=== PATIENT | female | born 1970 | race Caucasian/White ===

== ENCOUNTER 2019-12-03 09:46 | Emergency (ER) | payer MEDICAID, SELFPAY ==
[2019-12-03] VITALS (12 sets, daily range): BP systolic 90–189; BP diastolic 59–115; PULSE 72–101; RESP 16–22; TEMP 36.7–36.9; O2SAT 95–98; BMI 29.2
--- NOTE | 2019-12-03 09:56 | ED_ITS ---
Entered by Ana Wilder, acting as scribe for Dec 03, 2019 09:46 HPI - Abdominal Pain General: Chief Complaint: General Medical, Adult Stated Complaint: Blood pressure Time Seen by Provider: 12/03/19 09:55 Source: patient Mode of arrival: ambulatory History of Present Illness: MD elicited complaint: abdominal pain and other (high heart rate) Pertinent past history: none Onset (ago): day(s) (2 days ago) Pain Consistency: constant Location: Epigastric Severity: moderate Quality: cramping and aching Exacerbating factors: nothing Relieving factors: nothing Associated Symptoms: Reports nausea, vomiting and other (high blood pressure, high heart rate, headache, loss of appetite); Denies chills and fever(s) Review of Systems Const: Denies: fever or chills Eyes: Denies: change in vision ENMT: Denies: throat pain or mouth pain Card: Denies: chest pain Resp: Denies: shortness of breath GI: Reports: abdominal pain, nausea, vomiting and other (high blood pressure, high heart rate, headache, loss of appetite) : Denies: difficulty urinating Musc: Denies: back pain or joint pain Skin/Breast: Denies: rash Neuro: Denies: headache or behavioral changes Psych: Denies: depression Endo: Denies: excessive urination Stone/Lymph: Denies: easy bruising All/Imm: Denies: hives PFSH ED PFSH: Statuses (acute, chronic, etc) shown below reflect problem list status as previously entered and may not be historically accurate Family History (Updated 11/23/19 @ 16:47 by Lucy Castaneda LPN) Father Lung disease Other Cancer Stroke Social History (Updated 11/23/19 @ 16:47 by Lucy Castaneda LPN) Smoking and tobacco status: current every day smoker Alcohol intake: never Physical Exam Const: COMMON NORMALS: no apparent distress and healthy appearing HENMT: COMMON NORMALS: normocephalic and external nose normal HEAD & SCALP: normocephalic NOSE: external nose normal and no nasal discharge (nasal dischage) Eye: COMMON NORMALS: PERRL PUPIL: Yes PERRL Neck/C-Spine: COMMON NORMALS: full ROM and no lymphadenopathy Chest: COMMONS NORMALS: inspection of chest normal Resp: COMMON NORMALS: normal respiratory effort and clear to auscultation bilaterally AUSCULTATION: clear to auscultation bilaterally Cardio: COMMON NORMALS: regular rate and regular rhythm RATE: regular rate RHYTHM: regular rhythm GI: COMMON NORMALS: soft to palpation PALPATION: Yes soft Extremity: COMMON NORMALS: normal to inspection, full ROM and normal capillary refill Psych: COMMON NORMALS: mental status grossly normal and cooperative Skin: COMMON NORMALS: no rashes or lesions noted GENERAL SKIN EXAM: no rashes or lesions noted Procedures Intubation Mg Given: 20 Mg Given: 200 Course Vital Signs: Vital signs: Vital Signs Temperature 98.0 F 12/03/19 13:38 Pulse Rate 84 12/03/19 13:38 Respiratory Rate 16 12/03/19 13:38 Blood Pressure 90/59 12/03/19 13:38 Pulse Oximetry 96 12/03/19 13:38 MDM - Abdominal Pain MDM Narrative: Medical decision making narrative: Patient presents here with vomiting along with high blood pressure. Patient does have an elevated white count likely due to stress from vomiting and dehydration. Patient CT abdomen shows no acute findings. Patient feels improved after Zofran. Patient was hypertensive as well which is improved. Patient prescribe metoprolol for home. Lab Data: Labs: Lab Results 12/03/19 12/03/19 12/03/19 Range/Units 10:11 10:11 11:35 WBC 16.8 H (4.0-10.0) 10^3/ uL RBC 5.58 H (4.1-5.3) 10^6/u L Hgb 16.7 H (11.5-15.3) g/dL Hct 47.3 H (37.0-47.0) % MCV 84.8 (81-99) fL MCH 29.9 (28.0-34.0) pg MCHC 35.3 (30.0-36.0) g/dL RDW 12.0 L (12.1-15.1) % Plt Count 309 (130-400) 10^3/c mm MPV 9.0 (7.4-10.4) fL Neut % (Auto) 75.8 % Lymph % (Auto) 17.7 % [place] % (Auto) 5.8 % Eos % (Auto) 0.1 % Baso % (Auto) 0.3 % Neut # (Auto) 12.7 H (1.8-7.7) 10^3/u L Lymph # (Auto) 3.0 (0.8-4.8) 10^3/u L [place] # (Auto) 1.0 H (0.2-0.9) 10^3/u L Eos # (Auto) 0.0 (0.0-0.8) 10^3/u L Baso # (Auto) 0.1 (0.0-0.1) 10^3/u L Nucleated RBC % (a uto) 0 % Nucleated RBCs # 0.0 /100WBC Sodium 132 L (136-145) mmol/L Potassium 3.4 L (3.5-5.1) mmol/L Chloride 93 L (98-107) mmol/L Carbon Dioxide 22 (22-29) mmol/L Anion Gap 20.4 H (5-19) BUN 9 (6-20) mg/dL Creatinine 0.6 (0.5-0.9) mg/dL GFR Calculation 105.4 (90-130) mL/min Glucose 270 H (74-109) mg/dL Calcium 10.6 H (8.6-10.0) mg/Dl Total Bilirubin 0.7 (0.15-1.2) mg/dL AST 18 (0-32) U/L ALT 17 (0-33) U/L Alkaline Phosphata se 104 (35-105) IU/L Total Protein 7.3 (6.6-8.7) g/dL Albumin 5.3 H (3.5-5.2) g/dL Globulin 2.0 (1.3-4.6) g/dL Lipase 8 L (13-60) U/L Urine Color Yellow (Yellow) Urine Appearance Sl hazy (CLEAR) Urine pH 7 (5-7) Ur Specific Gravit y 1.010 (1.005-1.030) Urine Protein 1+ H (Negative) Urine Glucose (UA) Trace H (Normal) Urine Ketones 1+ H (Negative) Urine Occult Blood 2+ H (Negative) Urine Nitrate Negative (Negative) Urine Bilirubin Neg (NEGATIVE) Urine Urobilinogen Norm (Negative) mg/dL Ur Leukocyte Dejah ase Negative (Negative) Urine RBC 10-15 H (0-2) /hpf Urine WBC 10-15 H (0-5) /hpf Ur Squamous Epith Cells 10-15 H (0-5) Urine Bacteria 1+ H (NONE) EKG Data ^: EKG 1: EKG interpretation date: 12/03/19 EKG interpretation time: 11:33 Interpretation: nsr hr [address] or t wave abnormalities Computer generated interpretation: Discharge Plan Discharge Patient Disposition: Home, Self-Care Clinical Impression: Vomiting Qualifiers: Vomiting type: unspecified Vomiting Intractability: non-intractable Nausea presence: with nausea Qualified Code(s): R11.2 - Nausea with vomiting, unspecified Hypertension Qualifiers: Hypertension type: essential hypertension Qualified Code(s): I10 - Essential (primary) hypertension Condition: Stable Prescriptions: New Zofran 4 mg tablet 4 mg PO QID PRN (Reason: nausea and vomiting) Qty: 14 RF: 0 metoprolol succinate 25 mg tablet extended release 24 hr 25 mg PO DAILY Qty: 30 RF: 0 No Action omeprazole 40 mg capsule,delayed release(DR/EC) 40 mg PO DAILY RF: 0 fluticasone propionate [Flonase Allergy Relief] 50 mcg/actuation spray,suspe nsion 1 spray INTRANASAL BID RF: 0 citalopram [Celexa] 40 mg tablet 40 mg PO DAILY RF: 0 metformin 500 mg tablet extended release 24hr 1,000 mg PO DAILY RF: 0 albuterol sulfate [ProAir HFA] 90 mcg/actuation HFA aerosol inhaler 2 puff INHALATION Q6H PRNRF: 0 trazodone 150 mg tablet 150 mg PO DAILY RF: 0 valacyclovir [Valtrex] 1 gram tablet 1,000 mg PO DAILY RF: 0 Discharge Orders: Discharge Order (Routine); Ordered 12/03/19 Ordered By: Julia Leahy Referrals: Carine Booth DO [Primary Care Provider] - 4-7 days Discharge Diet: Advance as tolerated Discharge Activity: Resume usual activity Patient Instructions: Hypertension (ED), Vomiting - Adult Discharge Date/Time: 12/03/19 13:39 Coding Level of Care Code ED Labor Supervisor for Chg Fwd Exam Problem Focused The documentation recorded by the Meño serna Bridget Annette, accurately reflects the service I personally performed and the decisions made by Armond garcia Korby, MD Dec 03, 2019 09:46
--- NOTE | 2019-12-03 09:59 | ECG_ITS ---
Measurements Intervals [place] Rate: 73 P: 62 ND: 141 QRS: -6 QRSD: 86 T: 20 QT: 457 QTc: 506 SINUS RHYTHM POSSIBLE INFERIOR MYOCARDIAL INFARCTION , PROBABLY OLD [30 ms Q WAVE IN II/aVF] No previous ECG available for comparison Electronically Signed On 12-03-2019 13:17:06 ELECTROMECHANISMS DESIGN DRAFTER by Jeannette Mcbride M.D. [id number]
[2019-12-03 10:26] LABS: Basophils # 0.1 10^3/uL (0.0-0.1); Basophils % 0.3 %; Eosinophils % 0.1 %; Hematocrit 47.3 % (37.0-47.0); Hemoglobin 16.7 g/dL (11.5-15.3); Lymphocytes % 17.7 %; Mean Corpuscular HGB Conc 35.3 g/dL (30.0-36.0); Mean Corpuscular Hemoglobin 29.9 pg (28.0-34.0); Mean Corpuscular Volume 84.8 fL (81-99); Monocytes % 5.8 %; Neutrophils # 12.7 10^3/uL (1.8-7.7); Neutrophils % 75.8 %; Nucleated Red Blood Cells % 0 %; Platelet Count 309 10^3/cmm (130-400); Red Blood Count 5.58 10^6/uL (4.1-5.3); White Blood Count 16.8 10^3/uL (4.0-10.0)
[2019-12-03] MEDS: sodium chloride 0.9% 1,000 ML 999 ML IV (10:30)
[2019-12-03] MEDS: ondansetron 2 mg/ML SDV 2 mL 4 MG IVP ×2 (10:38→12:24)
[2019-12-03] MEDS: morphine 4 mg/mL SDV 1 mL IVP ×2 (10:40→12:30)
[2019-12-03 10:42] LABS: Alanine Aminotransferase 17 U/L (0-33); Albumin Level 5.3 g/dL (3.5-5.2); Alkaline Phosphatase 104 IU/L (35-105); Anion Gap 20.4 (5-19); Aspartate Amino Transferase 18 U/L (0-32); Blood Urea Nitrogen 9 mg/dL (6-20); Calcium 10.6 mg/Dl (8.6-10.0); Carbon Dioxide 22 mmol/L (22-29); Chloride 93 mmol/L (98-107); Glomerular Filtration Rate 105.4 mL/min (90-130); Glucose 270 mg/dL (74-109); Lipase 8 U/L (13-60); Potassium 3.4 mmol/L (3.5-5.1); Sodium 132 mmol/L (136-145); Total Bilirubin 0.7 mg/dL (0.15-1.2); Total Protein 7.3 g/dL (6.6-8.7)
[2019-12-03] MEDS: labetalol 5 mg/mL SDV 20mL 10 MG IVP (10:45)
--- NOTE | 2019-12-03 11:00 | CTR_ITS ---
PROCEDURE INFORMATION: Exam: CT Abdomen And Pelvis Without Contrast Exam date and time: 12/03/2019 11:48 AM Age: 49 years old Clinical indication: Abdominal pain; Epigastric; Prior surgery; Surgery date: 6+ months; Surgery type: Partial hyst. Appy TECHNIQUE: Imaging protocol: Computed tomography of the abdomen and pelvis without contrast. Total DLP: 719.88 mGy-cm Radiation optimization: All CT scans at this facility use at least one of these dose optimization techniques: automated exposure control; mA and/or kV adjustment per patient size (includes targeted exams where dose is matched to clinical indication); or iterative reconstruction. COMPARISON: CR Hip 2-3v LEFT wwo Pelv* [id number] 11/24/2019 2:46 PM FINDINGS: Liver: Normal. No mass. Gallbladder and bile ducts: Normal. No calcified stones. No ductal dilation. Pancreas: Normal. No ductal dilation. Spleen: Spleen contains several calcified granulomas. Adrenals: Normal. No mass. Kidneys and ureters: Normal. No hydronephrosis. Stomach and bowel: Unremarkable. No obstruction. No mucosal thickening. Appendix: No evidence of appendicitis. Intraperitoneal space: Unremarkable. No free air. No significant fluid collection. Vasculature: Mild aortoiliac atherosclerotic calcification. Lymph nodes: Unremarkable. No enlarged lymph nodes. Bladder: Unremarkable as visualized. Reproductive: Prior hysterectomy. Bones/joints: Unremarkable. No acute fracture. Soft tissues: Unremarkable. CT/CT abdomen pelvis con [id number] IMPRESSION: No acute findings. Radiation Dose CTDIVOL = (mGy): DLP = 719.88 (mGy-cm)
[2019-12-03 12:25] LABS: Blood Urine 2+ (Negative); Glucose Urine UA Trace (Normal); Ketones Urine 1+ (Negative); Protein Urine 1+ (Negative); Urine Appearance SL Hazy (CLEAR); Urine Color Yellow (Yellow); pH Urine 7 (5-7)
[2019-12-03 12:26] LABS: Bilirubin Urine Neg (NEGATIVE); Leukocyte Esterase Urine Negative (Negative); Nitrate Urine Negative (Negative); Urobilinogen Urine Norm (Negative)
[2019-12-03 12:29] LABS: Bacteria Urine 1+
[2019-12-03 12:30] LABS: Add Urine Culture? No
== END 2019-12-03 13:39 | disposition home or self-care (01) ==
PROVIDERS: Emergency Provider Emergency Medicine; Family Provider Family Medicine; PCP Family Medicine
DX: I10 Essential (primary) hypertension (principal); R11.2 Nausea with vomiting, unspecified; Z79.84 Long term (current) use of oral hypoglycemic drugs; F17.210 Nicotine dependence, cigarettes, uncomplicated
CPT/HCPCS: 74176; 80053; 81001; 83690; 85025; 93005; 96360; 96374; 99283; J2270; J2405; J3490; J7030

== ENCOUNTER → 2020-02-15 10:33 | Outpatient (BNVA) | payer MEDICAID, SELFPAY | PROVIDERS: Family Provider Family Medicine; PCP Family Medicine; Visit Provider Family Medicine | DX: E11.9 Type 2 diabetes mellitus without complications (principal) | CPT/HCPCS: 80053; 80061; 82044; 83036; 85025 ==

== ENCOUNTER 2020-04-23 08:32 | Day surgery (SDC) | payer MEDICAID, SELFPAY ==
[2020-04-19 14:06] VITALS: BMI 29.2
[2020-04-23 09:06] VITALS: BP 149/86; PULSE 83; RESP 18; TEMP 36.4; O2SAT 97
[2020-04-23 09:13] LABS: Glucose Point of Care 165 mg/dL (70-110)
--- NOTE | 2020-04-23 09:25 | ANES.PREANE2 ---
Pre-Anesthetic Assessment Pre-Anesthetic Assessment: Height/Weight: Height 1.63 m Weight 77.111 kg Temp Pulse Resp BP Pulse Ox 97.6 F 83 18 149/86 97 04/23/20 09:06 04/23/20 09:06 04/23/20 09:06 04/23/20 09:06 04/23/20 09:06 Proposed Procedure: Operation Date: 04/23/20 10:00 Proposed Procedures p Colonoscopy 86919 Z12.11(Bilateral) - Alex Braswell MD Last intake: Intake Last Liquid Date 04/22/20 Last Liquid Time 22:30 Last Solid Date 04/21/20 Last Solid Time 23:59 Social: Social History: Tobacco and No alcohol Exam: Pre-Anes Outpt Exam: alert, oriented x 3, clear to auscultation bilaterally and regular rate & rhythm Airway: Submandibular: WNL Cervical ROM: WNL MP: 2 Dentition: False (edenturless ) History/ROS: No significant history except as noted Pulmonary: Pulmonary: COPD and SALINAS CV/HEM: CV/HEM: None reported : : None reported Hepatic: Hepatic: None reported GI: GI: GERD Metabolic: Metabolic: DM and Thyroid Musc/skel: Musc/skel: OA/DJD Neuropsych: Neuropsych: Anxiety and Depression Anesthetic Plan: ASA status: 3 Anesthesia: Anesthesia Evaluation and MAC Risk of > 500 ml blood loss (7ml/kg in children): No PFSH Anesthesia PFSH: Medical History Anxiety and depression Chronic left hip pain Gastroesophageal reflux Hypothyroidism Type 2 diabetes mellitus, without long-term current use of insulin Surgical History H/O carpal tunnel repair H/O tubal ligation H/O: hysterectomy History of appendectomy History of tonsillectomy and adenoidectomy Family History Father Lung disease Other Atrial fibrillation CAD (coronary artery disease) COPD (chronic obstructive pulmonary disease) Cancer Stroke Social History Smoking and tobacco status: current every day smoker cigarettes Packs smoked per day: 1 Alcohol intake: never Data Anesthesia Other Labs: Laboratory Results - last 48 hr 04/23/20 09:10 POC Glucose 165 Cardiac Studies: No Data to Display
[2020-04-23] MEDS: sodium chloride 0.9% 1,000 ML 30 ML IV (09:42)
--- NOTE | 2020-04-23 09:50 | PM.OPSURHP ---
Providers/Chief Complaint Primary Care Provider: Carine Booth DO Chief Complaint: Colonscopy History of Present Illness Molly Kenny is a 50 year old female who presents for screening colonoscopy. The patient denies abdominal pain, nausea, vomiting, loss of appetite, change in bowel habits, blood in stools, weight loss, constipation or diarrhea. The patient has no family history of colon cancer and has never had a colonoscopy before. Review of Systems General: Reports: 10 or more systems reviewed and unremarkable except in HPI and below Medications/Allergies Home Medications Medication Instructions Recorded Confirmed Last Taken Type albuterol sulfate 90 mcg/actuation 2 puff INHALATION Q6H PRN 11/23/19 04/23/20 04/22/20 History aerosol inhaler valacyclovir 1 gram tablet 1,000 mg PO DAILY tab 11/23/19 04/19/20 Unknown History ondansetron HCl 4 mg tablet 4 mg PO QID PRN #14 tab 01/03/20 04/19/20 Unknown Rx tramadol 50 mg tablet 50 mg PO BID PRN #14 tab 01/12/20 04/19/20 Unknown Rx citalopram 40 mg tablet 40 mg PO DAILY #90 tab 02/28/20 04/19/20 04/22/20 Rx trazodone 100 mg tablet 200 mg PO .at bedtime #90 tab 03/08/20 04/23/20 04/22/20 Rx fluticasone propionate 50 2 spray INTRANASAL BID #18.2 ml 03/18/20 04/19/20 04/22/20 Rx mcg/actuation nasal spray,suspension sitagliptin 100 mg tablet 100 mg PO DAILY #30 tab 04/12/20 04/23/20 04/21/20 Rx Allergies Allergy/AdvReac Type Severity Reaction Status Date / Time cephalexin [From Keflex] Allergy Intermediate Hives Verified 04/11/20 15:21 Penicillins Allergy Intermediate Hives Verified 04/11/20 15:21 PFSH PFSH: Medical History Anxiety and depression Chronic left hip pain Gastroesophageal reflux Hypothyroidism Type 2 diabetes mellitus, without long-term current use of insulin Surgical History H/O carpal tunnel repair H/O tubal ligation H/O: hysterectomy History of appendectomy History of tonsillectomy and adenoidectomy Family History Father Lung disease Other Atrial fibrillation CAD (coronary artery disease) COPD (chronic obstructive pulmonary disease) Cancer Stroke Social History Smoking and tobacco status: current every day smoker cigarettes Packs smoked per day: 1 Alcohol intake: never Vital Signs Vitals Signs: Last Vital Signs Temp 97.6 F 04/23/20 09:06 Pulse 83 04/23/20 09:06 Resp 18 04/23/20 09:06 BP 149/86 04/23/20 09:06 Pulse Ox 97 04/23/20 09:06 Physical Exam Narrative: EXAM NARRATIVE: HEENT: Normocephalic Eye: Sclera /conjunctiva normal Respiratory and chest: Bilateral clear breath sounds on auscultation Cardiovascular: Normal S1 and S2 heart sounds Abdomen: Soft to palpation Neurological: Oriented to place person and time Skin: Intact, no lesions appreciated on gross exam A&P Assessment and plan (1) Encounter for screening colonoscopy: The patient is scheduled for colonoscopy under MAC. The procedure risks and benefits, including infection, bleeding and bowel injury, has been explained to the patient, who has consented to the procedure. Information about the prep has been provided to the patient. Status: Acute Coding Level of Care Code Acute Maintenance Scheduler for Chg Fwd Diagnoses Encounter for screening colonoscopy Z12.11
[2020-04-23] MEDS: ondansetron 2 mg/ML SDV 2 mL 4 MG IVP ×4 (09:55→11:18)
[2020-04-23 10:28] VITALS: BP 175/96; PULSE 88; RESP 18; TEMP 36.2; O2SAT 96
[2020-04-23 10:44] VITALS: BP 167/91; PULSE 80; RESP 18; O2SAT 99
[2020-04-23 11:03] VITALS: BP 171/83; PULSE 74; RESP 18; O2SAT 97
[2020-04-23 11:55] LABS: Glucose Point of Care 166 mg/dL (70-110)
== END 2020-04-23 12:02 | disposition home or self-care (01) ==
PROVIDERS: PCP Family Medicine; Visit Provider Surgery
PROC: 0DJD8ZZ Inspection of Lower Intestinal Tract, Via Natural or Artificial Opening Endoscopic (ICD-10-PCS; CPT 45378; principal; 2020-04-23 09:55)
DX: Z12.11 Encounter for screening for malignant neoplasm of colon (principal); K57.30 Diverticulosis of large intestine without perforation or abscess without bleeding; J44.9 Chronic obstructive pulmonary disease, unspecified; K21.9 Gastro-esophageal reflux disease without esophagitis; E11.9 Type 2 diabetes mellitus without complications; M19.90 Unspecified osteoarthritis, unspecified site; Z82.49 Family history of ischemic heart disease and other diseases of the circulatory system; F17.210 Nicotine dependence, cigarettes, uncomplicated; F41.9 Anxiety disorder, unspecified; F32.9 Major depressive disorder, single episode, unspecified
CPT/HCPCS: 12345; 36416; 45378; 82962; J2405; J2704; J7030

== ENCOUNTER 2020-04-24 12:51 | Inpatient (IN) | payer MEDICAID, SELFPAY ==
[2020-04-24] VITALS (7 sets, daily range): BP systolic 117–197; BP diastolic 70–141; PULSE 97–118; RESP 16–20; TEMP -8.8–36.8; O2SAT 93–97; BMI 29.2
--- NOTE | 2020-04-24 13:22 | ECG_ITS ---
Measurements Intervals [place] Rate: 112 P: 73 MS: 128 QRS: 37 QRSD: 80 T: 66 QT: 352 QTc: 482 SINUS TACHYCARDIA Compared to ECG 12/03/2019 11:33:41 Sinus rhythm no longer present Myocardial infarct finding no longer present Electronically Signed On 04-24-2020 19:52:17 CDT by Jeannette Mcbride M.D. [id number]
--- NOTE | 2020-04-24 13:22 | ED_ITS ---
HPI - Abdominal Pain General: Chief Complaint: Abdominal Pain Stated Complaint: POST OP PROBLEMS Time Seen by Provider: 04/24/20 13:14 History of Present Illness: HPI narrative: Patient is a 50-year-old female presenting with abdominal pain and vomiting. She says that she had a colonoscopy yesterday and that her symptoms started even before the colonoscopy when she was doing the bowel prep. She says the bowel prep was 2 bottles of magnesium citrate. After the second bottle she said she threw up everywhere. She really has not had anything to eat since before the colonoscopy. She has been sipping on fluids but is not keeping much down. She checked her blood sugar at home and it was around 270. She had skipped her Januvia the night before because she was unable to eat. She did take it today prior to coming in. She has been having some urine output and denies burning or pain. She has had no diarrhea or bloody stools. She reports having had a lot of stomach problems in the past. She does not normally have a history of high blood pressure but it is quite high now. She also complains of her hands being tingly. The colonoscopy was done for routine screening. MD elicited complaint: abdominal pain Onset (ago): day(s) (-11/30) Pain Consistency: constant Location: Epigastric Severity: severe Associated Symptoms: Reports dyspepsia, nausea and vomiting; Denies chills and fever(s) Review of Systems General: Reports: 10 or more systems reviewed and unremarkable except in HPI and below Const: Denies: fever(s), chills, fatigue or malaise Eyes: Denies: change in vision ENMT: Denies: odynophagia Card: Denies: chest pain or swelling of feet/ankles Resp: Denies: dyspnea, productive cough or non-productive cough GI: Reports: nausea and vomiting : Denies: flank pain or difficulty voiding Musc: Denies: neck pain or back pain Skin/Breast: Denies: rash Neuro: Denies: headache(s), numbness in extremities or weakness in extremities Stone/Lymph: Denies: easy bruising or easy bleeding PFS ED PFSH: Medical History Anxiety and depression Chronic left hip pain Gastroesophageal reflux Hypothyroidism Type 2 diabetes mellitus, without long-term current use of insulin Surgical History H/O carpal tunnel repair H/O tubal ligation H/O: hysterectomy History of appendectomy History of tonsillectomy and adenoidectomy Status post colonoscopy (04/23/20) Repeat in 10 years Family History Father Lung disease Other Atrial fibrillation CAD (coronary artery disease) COPD (chronic obstructive pulmonary disease) Cancer Stroke Social History Smoking and tobacco status: current every day smoker cigarettes Packs smoked per day: 1 Alcohol intake: never Household members: family Housing: House Physical Exam Const: COMMON NORMALS: no acute distress, patient oriented x3, no limitations and alert GENERAL APPEARANCE: cooperative and comfortable HENMT: HEAD & SCALP: normal to inspection FACE & SINUS: normal facial exam Eye: GENERAL EYE: appearance normal, both eyes and all related structures Neck/C-Spine: COMMON NORMALS: supple, no meningeal signs and no JVD Chest: COMMONS NORMALS: normal inspection of the chest Resp: COMMON NORMALS: normal respiratory effort, No use of accessory muscles and clear to auscultation bilaterally AUSCULTATION: clear to auscultation bilaterally Cardio: COMMON NORMALS: no JVD, regular rate, regular rhythm and No murmurs present (Cardio) RATE: regular rate RHYTHM: regular rhythm GI: COMMON NORMALS: Normal to inspection, nondistended, normoactive bowel sounds present and Soft to palpation INSPECTION: Yes normal to inspection AUSCULTATION: Yes normoactive bowel sounds PALPATION: Yes Soft to palpation and Yes Tenderness to palpation present (GI) Back/Pelvis: COMMON NORMALS: thoracic and lumbar spine normal to inspection Extremity: COMMON NORMALS: normal to inspection Neuro: COMMON NORMALS: patient oriented x3, moves all extremities, no focal motor deficits and no sensory deficits noted SENSORIUM/ORIENTATION: Yes alert MENINGEAL SIGNS: Yes no meningeal signs Psych: COMMON NORMALS: mental status grossly normal, cooperative and normal affect Skin: COMMON NORMALS: no rashes or lesions noted and turgor normal GENERAL SKIN EXAM: no rashes or lesions noted and turgor normal Course ED course: This patient presents with vomiting and abdominal pain following a colonoscopy. Symptoms started before the colonoscopy and are more likely related to the prep. Her electrolytes were within normal limits. She had an elevated white count and showed some dehydration on her physical exam. She was hydrated but remained unable to tolerate p.o. fluids and was admitted. Vital Signs: Vital signs: Vital Signs Temperature 98.7 F 04/26/20 13:33 Pulse Rate 80 04/26/20 13:33 Respiratory Rate 16 04/26/20 13:33 Blood Pressure 169/93 04/26/20 13:33 Pulse Oximetry 95 04/26/20 13:33 MDM - Abdominal Pain Lab Data: Labs: Lab Results 04/24/20 04/24/20 04/24/20 Range/Units 13:37 13:37 13:37 WBC 25.4 H (4.0-10.0) 10^3/ uL RBC 6.11 H (4.1-5.3) 10^6/u L Hgb 18.8 H (11.5-15.3) g/dL Hct 52.1 H (37.0-47.0) % MCV 85.3 (81-99) fL MCH 30.8 (28.0-34.0) pg MCHC 36.1 H (30.0-36.0) g/dL RDW 12.1 (12.1-15.1) % Plt Count 391 (130-400) 10^3/c mm MPV 9.0 (7.4-10.4) fL Neut % (Auto) 81.1 % Lymph % (Auto) 9.5 % [place] % (Auto) 8.6 % Eos % (Auto) 0.0 % Baso % (Auto) 0.2 % Neut # (Auto) 20.6 H (1.8-7.7) 10^3/u L Lymph # (Auto) 2.4 (0.8-4.8) 10^3/u L [place] # (Auto) 2.2 H (0.2-0.9) 10^3/u L Eos # (Auto) 0.0 (0.0-0.8) 10^3/u L Baso # (Auto) 0.1 (0.0-0.1) 10^3/u L Nucleated RBC % (a uto) 0 % Nucleated RBCs # 0.0 /100WBC Sodium 134 L (136-145) mmol/L Potassium 3.3 L (3.5-5.1) mmol/L Chloride 90 L (98-107) mmol/L Carbon Dioxide 22 (22-29) mmol/L Anion Gap 25.3 H (5-19) BUN 11 (6-20) mg/dL Creatinine 0.8 (0.5-0.9) mg/dL GFR Calculation 75.3 L (90-130) mL/min Glucose 328 H (65-115) mg/dL POC Glucose (70-110) mg/dL Calculated Osmolal ity 287 (285-295) mOsm/k g Lactate (0.5-2.2) mmol/L Calcium 10.1 (8.5-10.5) mg/dL Magnesium (1.7-2.3) mg/dL Total Bilirubin 0.7 (0.15-1.2) mg/dL AST 19 (0-32) U/L ALT 18 (0-33) U/L Alkaline Phosphata se 127 H (35-105) IU/L Troponin T Baselin e 51 H (0-10) ng/mL Troponin T 120 Min [place] (0-10) ng/mL Delta Troponin T (0-10) ABS# Total Protein 8.3 (6.6-8.7) g/dL Albumin 4.9 (3.5-5.2) g/dL Globulin 3.4 (1.3-4.6) g/dL Lipase 229 H (13-60) U/L Urine Color (Yellow) Urine Appearance (CLEAR) Urine pH (5-7) Ur Specific Gravit y (1.005-1.030) Urine Protein (Negative) Urine Glucose (UA) (Normal) Urine Ketones (Negative) Urine Blood (Negative) Urine Nitrate (Negative) Urine Bilirubin (NEGATIVE) Prot Sulfosalicyli c Acd (Negative) Urine Urobilinogen (Negative) mg/dL Ur Leukocyte Dejah ase (Negative) Urine RBC (0-2) /hpf Urine WBC (0-5) /hpf Ur Squamous Epith Cells (0-5) Urine Bacteria (NONE) Serum Ketones (Negative) 04/24/20 04/24/20 04/24/20 Range/Units 13:37 14:24 14:35 WBC (4.0-10.0) 10^3/ uL RBC (4.1-5.3) 10^6/u L Hgb (11.5-15.3) g/dL Hct (37.0-47.0) % MCV (81-99) fL MCH (28.0-34.0) pg MCHC (30.0-36.0) g/dL RDW (12.1-15.1) % Plt Count (130-400) 10^3/c mm MPV (7.4-10.4) fL Neut % (Auto) % Lymph % (Auto) % [place] % (Auto) % Eos % (Auto) % Baso % (Auto) % Neut # (Auto) (1.8-7.7) 10^3/u L Lymph # (Auto) (0.8-4.8) 10^3/u L [place] # (Auto) (0.2-0.9) 10^3/u L Eos # (Auto) (0.0-0.8) 10^3/u L Baso # (Auto) (0.0-0.1) 10^3/u L Nucleated RBC % (a uto) % Nucleated RBCs # /100WBC Sodium (136-145) mmol/L Potassium (3.5-5.1) mmol/L Chloride (98-107) mmol/L Carbon Dioxide (22-29) mmol/L Anion Gap (5-19) BUN (6-20) mg/dL Creatinine (0.5-0.9) mg/dL GFR Calculation (90-130) mL/min Glucose (65-115) mg/dL POC Glucose (70-110) mg/dL Calculated Osmolal ity (285-295) mOsm/k g Lactate 3.7 H (0.5-2.2) mmol/L Calcium (8.5-10.5) mg/dL Magnesium (1.7-2.3) mg/dL Total Bilirubin (0.15-1.2) mg/dL AST (0-32) U/L ALT (0-33) U/L Alkaline Phosphata se (35-105) IU/L Troponin T Baselin e (0-10) ng/mL Troponin T 120 Min [place] (0-10) ng/mL Delta Troponin T (0-10) ABS# Total Protein (6.6-8.7) g/dL Albumin (3.5-5.2) g/dL Globulin (1.3-4.6) g/dL Lipase (13-60) U/L Urine Color Yellow (Yellow) Urine Appearance Clear (CLEAR) Urine pH 7 (5-7) Ur Specific Gravit y 1.010 (1.005-1.030) Urine Protein 2+ H (Negative) Urine Glucose (UA) 4+ H (Normal) Urine Ketones 2+ H (Negative) Urine Blood 2+ H (Negative) Urine Nitrate Negative (Negative) Urine Bilirubin Neg (NEGATIVE) Prot Sulfosalicyli c Acd Negative (Negative) Urine Urobilinogen Norm (Negative) mg/dL Ur Leukocyte Dejah ase Negative (Negative) Urine RBC 0-4 H (0-2) /hpf Urine WBC 0-4 H (0-5) /hpf Ur Squamous Epith Cells None (0-5) Urine Bacteria Trace (NONE) Serum Ketones Negative (Negative) 04/24/20 04/24/20 04/24/20 Range/Units 15:39 15:39 16:27 WBC (4.0-10.0) 10^3/ uL RBC (4.1-5.3) 10^6/u L Hgb (11.5-15.3) g/dL Hct (37.0-47.0) % MCV (81-99) fL MCH (28.0-34.0) pg MCHC (30.0-36.0) g/dL RDW (12.1-15.1) % Plt Count (130-400) 10^3/c mm MPV (7.4-10.4) fL Neut % (Auto) % Lymph % (Auto) % [place] % (Auto) % Eos % (Auto) % Baso % (Auto) % Neut # (Auto) (1.8-7.7) 10^3/u L Lymph # (Auto) (0.8-4.8) 10^3/u L [place] # (Auto) (0.2-0.9) 10^3/u L Eos # (Auto) (0.0-0.8) 10^3/u L Baso # (Auto) (0.0-0.1) 10^3/u L Nucleated RBC % (a uto) % Nucleated RBCs # /100WBC Sodium 139 (136-145) mmol/L Potassium 3.3 L (3.5-5.1) mmol/L Chloride 100 (98-107) mmol/L Carbon Dioxide 23 (22-29) mmol/L Anion Gap 19.3 H (5-19) BUN 9 (6-20) mg/dL Creatinine 0.7 (0.5-0.9) mg/dL GFR Calculation 87.9 L (90-130) mL/min Glucose 251 H (65-115) mg/dL POC Glucose 201 (70-110) mg/dL Calculated Osmolal ity 292 (285-295) mOsm/k g Lactate (0.5-2.2) mmol/L Calcium 8.9 (8.5-10.5) mg/dL Magnesium (1.7-2.3) mg/dL Total Bilirubin (0.15-1.2) mg/dL AST (0-32) U/L ALT (0-33) U/L Alkaline Phosphata se (35-105) IU/L Troponin T Baselin e (0-10) ng/mL Troponin T 120 Min [place] 44.11 H (0-10) ng/mL Delta Troponin T -6.89 L (0-10) ABS# Total Protein (6.6-8.7) g/dL Albumin (3.5-5.2) g/dL Globulin (1.3-4.6) g/dL Lipase (13-60) U/L Urine Color (Yellow) Urine Appearance (CLEAR) Urine pH (5-7) Ur Specific Gravit y (1.005-1.030) Urine Protein (Negative) Urine Glucose (UA) (Normal) Urine Ketones (Negative) Urine Blood (Negative) Urine Nitrate (Negative) Urine Bilirubin (NEGATIVE) Prot Sulfosalicyli c Acd (Negative) Urine Urobilinogen (Negative) mg/dL Ur Leukocyte Dejah ase (Negative) Urine RBC (0-2) /hpf Urine WBC (0-5) /hpf Ur Squamous Epith Cells (0-5) Urine Bacteria (NONE) Serum Ketones (Negative) 04/24/20 04/24/20 Range/Units 18:47 18:47 WBC (4.0-10.0) 10^3/ uL RBC (4.1-5.3) 10^6/u L Hgb (11.5-15.3) g/dL Hct (37.0-47.0) % MCV (81-99) fL MCH (28.0-34.0) pg MCHC (30.0-36.0) g/dL RDW (12.1-15.1) % Plt Count (130-400) 10^3/c mm MPV (7.4-10.4) fL Neut % (Auto) % Lymph % (Auto) % [place] % (Auto) % Eos % (Auto) % Baso % (Auto) % Neut # (Auto) (1.8-7.7) 10^3/u L Lymph # (Auto) (0.8-4.8) 10^3/u L [place] # (Auto) (0.2-0.9) 10^3/u L Eos # (Auto) (0.0-0.8) 10^3/u L Baso # (Auto) (0.0-0.1) 10^3/u L Nucleated RBC % (a uto) % Nucleated RBCs # /100WBC Sodium (136-145) mmol/L Potassium (3.5-5.1) mmol/L Chloride (98-107) mmol/L Carbon Dioxide (22-29) mmol/L Anion Gap (5-19) BUN (6-20) mg/dL Creatinine (0.5-0.9) mg/dL GFR Calculation (90-130) mL/min Glucose (65-115) mg/dL POC Glucose (70-110) mg/dL Calculated Osmolal ity (285-295) mOsm/k g Lactate 1.7 (0.5-2.2) mmol/L Calcium (8.5-10.5) mg/dL Magnesium 1.7 (1.7-2.3) mg/dL Total Bilirubin (0.15-1.2) mg/dL AST (0-32) U/L ALT (0-33) U/L Alkaline Phosphata se (35-105) IU/L Troponin T Baselin e (0-10) ng/mL Troponin T 120 Min [place] (0-10) ng/mL Delta Troponin T (0-10) ABS# Total Protein (6.6-8.7) g/dL Albumin (3.5-5.2) g/dL Globulin (1.3-4.6) g/dL Lipase (13-60) U/L Urine Color (Yellow) Urine Appearance (CLEAR) Urine pH (5-7) Ur Specific Gravit y (1.005-1.030) Urine Protein (Negative) Urine Glucose (UA) (Normal) Urine Ketones (Negative) Urine Blood (Negative) Urine Nitrate (Negative) Urine Bilirubin (NEGATIVE) Prot Sulfosalicyli c Acd (Negative) Urine Urobilinogen (Negative) mg/dL Ur Leukocyte Dejah ase (Negative) Urine RBC (0-2) /hpf Urine WBC (0-5) /hpf Ur Squamous Epith Cells (0-5) Urine Bacteria (NONE) Serum Ketones (Negative) EKG Data ^: EKG 1: EKG interpretation date: 04/24/20 EKG interpretation time: 13:58 Interpretation: EKG with a normal sinus tachycardia at a rate of 112. Normal intervals. Normal axis. Normal ST segments with no ischemic changes. Discharge Plan Discharge Admit Provider: Rosey Ramon Condition: Stable Discharge Orders: Discharge Order (Routine); Ordered 04/26/20 Ordered By: Filippo Canseco Discharge Diet: Advance as tolerated Discharge Activity: Increase activity as tolerated Discharge Date/Time: 04/24/20 19:11 Coding Level of Care Code ED Diplomatic Interpreter for Chg Fwd Exam Comprehensive
[2020-04-24] MEDS: morphine 4 mg/mL SDV 1 mL IVP (13:42)
[2020-04-24] MEDS: ondansetron 2 mg/ML SDV 2 mL 4 MG IVP (13:42)
[2020-04-24] MEDS: famotidine 20 mg/2 mL INJ 40 MG IVP (13:44)
[2020-04-24] MEDS: sodium chloride 0.9% 1,000 ML 999 ML IV (13:46)
[2020-04-24 14:04] LABS: Basophils # 0.1 10^3/uL (0.0-0.1); Basophils % 0.2 %; Hematocrit 52.1 % (37.0-47.0); Hemoglobin 18.8 g/dL (11.5-15.3); Lymphocytes # 2.4 10^3/uL (0.8-4.8); Lymphocytes % 9.5 %; Mean Corpuscular HGB Conc 36.1 g/dL (30.0-36.0); Mean Corpuscular Hemoglobin 30.8 pg (28.0-34.0); Mean Corpuscular Volume 85.3 fL (81-99); Monocytes # 2.2 10^3/uL (0.2-0.9); Monocytes % 8.6 %; Neutrophils # 20.6 10^3/uL (1.8-7.7); Neutrophils % 81.1 %; Nucleated Red Blood Cells % 0 %; Platelet Count 391 10^3/cmm (130-400); Red Blood Count 6.11 10^6/uL (4.1-5.3); Red Cell Distribution Width 12.1 % (12.1-15.1); White Blood Count 25.4 10^3/uL (4.0-10.0)
[2020-04-24 14:29] LABS: Alanine Aminotransferase 18 U/L (0-33); Albumin Level 4.9 g/dL (3.5-5.2); Alkaline Phosphatase 127 IU/L (35-105); Anion Gap 25.3 (5-19); Aspartate Amino Transferase 19 U/L (0-32); Blood Urea Nitrogen 11 mg/dL (6-20); Calcium 10.1 mg/dL (8.5-10.5); Carbon Dioxide 22 mmol/L (22-29); Chloride 90 mmol/L (98-107); Globulin 3.4 g/dL (1.3-4.6); Glomerular Filtration Rate 75.3 mL/min (90-130); Glucose 328 mg/dL (65-115); Lipase 229 U/L (13-60); Osmolality Calculated 287 mOsm/kg (285-295); Potassium 3.3 mmol/L (3.5-5.1); Sodium 134 mmol/L (136-145); Total Bilirubin 0.7 mg/dL (0.15-1.2); Total Protein 8.3 g/dL (6.6-8.7)
[2020-04-24 14:31] LABS: Troponin(5th) Baseline 51 ng/mL (0-10)
[2020-04-24 14:41] LABS: Add Urine Microscopic? YES; Bilirubin Urine Neg (NEGATIVE); Blood Urine 2+ (Negative); Glucose Urine UA 4+ (Normal); Ketones Urine 2+ (Negative); Leukocyte Esterase Urine Negative (Negative); Nitrate Urine Negative (Negative); Protein Urine 2+ (Negative); Sulfosalicylic Acid Urine Negative (Negative); Urine Appearance Clear (CLEAR); Urine Color Yellow (Yellow); Urobilinogen Urine Norm (Negative); pH Urine 7 (5-7)
[2020-04-24 14:49] LABS: Add Urine Culture? No; Bacteria Urine TRACE; RBC Urine 0-4 /hpf (0-2); WBC Urine 0-4 /hpf (0-5)
[2020-04-24 15:01] LABS: Lactate (Lactic Acid level) 3.7 mmol/L (0.5-2.2)
--- NOTE | 2020-04-24 15:08 | PC.NURSE ---
order for insulin was put in for 10 but only 5 was given per emd
[2020-04-24 15:14] LABS: Ketone (Acetest) Serum Negative (Negative)
--- NOTE | 2020-04-24 15:22 | ECG_ITS ---
Measurements Intervals [place] Rate: 90 P: 62 AR: 136 QRS: 2 QRSD: 89 T: 53 QT: 404 QTc: 497 SINUS RHYTHM Compared to ECG 12/03/2019 11:33:41 Myocardial infarct finding no longer present Electronically Signed On 04-24-2020 19:56:50 CDT by Jeannette Mcbride M.D. [id number] f
[2020-04-24 15:58] LABS: Troponin 5 2HR 44.11 ng/mL (0-10)
[2020-04-24] MEDS: hyDRALAzine 20 mg/mL INJ 1 mL 10 MG IVP ×2 (16:30→18:46)
[2020-04-24] MEDS: ketorolac 30 mg/mL INJ 15 MG IVP (16:30)
[2020-04-24 16:31] LABS: Glucose Point of Care 201 mg/dL (70-110)
[2020-04-24] MEDS: lactated ringers 1,000 ML 999 ML IV (16:51)
--- NOTE | 2020-04-24 18:08 | PC.NURSE ---
patient c/o nausea emd informed
[2020-04-24 18:38] LABS: Anion Gap 19.3 (5-19); Blood Urea Nitrogen 9 mg/dL (6-20); Calcium 8.9 mg/dL (8.5-10.5); Carbon Dioxide 23 mmol/L (22-29); Chloride 100 mmol/L (98-107); Glomerular Filtration Rate 87.9 mL/min (90-130); Glucose 251 mg/dL (65-115); Osmolality Calculated 292 mOsm/kg (285-295); Potassium 3.3 mmol/L (3.5-5.1); Sodium 139 mmol/L (136-145)
[2020-04-24] MEDS: sodium chlor 0.9% + KCl 40 mEq 40 MEQ/1,000 ML BAG 125 MEQ IV ×2 (18:45→23:08)
[2020-04-24] MEDS: magnesium sulfate premix 2 GM/50 ML PIGGYBACK IV (18:48)
[2020-04-24 19:09] LABS: Lactate (Lactic Acid level) 1.7 mmol/L (0.5-2.2); Magnesium 1.7 mg/dL (1.7-2.3)
--- NOTE | 2020-04-24 19:20 | PM.HP ---
Providers/Chief Complaint Primary Care Provider: Carine Booth DO Chief Complaint: POST OP PROBLEMS History of Present Illness Molly Kenny is a 50 year old female who carries diagnosis of type 2 diabetes, had screening colonoscopy yesterday coming in with chief complaint of recurrent emesis. Patient is stating that after bowel prep she started feeling nauseous and since her colonoscopy she has been having intractable nausea and vomiting, she has had 20 episodes so far in last 30 hours. She has not been able to take her anti-hyper glycemic agents or eat anything. She has not noticed any fever blood in vomitus. She denies previous history of gastroparesis. She denies alcohol use, smokes 1 pack/day, she denies previous history of pancreatitis. Diagnosis in the ER revealed severe leukocytosis, extreme dehydration, relative polycythemia CT abdomen did not reveal pancreatitis however lipase is high She was not able to keep anything down in the ER hence decision was made to admit her because of intractable nausea and vomiting Hyperglycemia without acidosis or ketones Review of Systems Const: Reports: body aches and fatigue; Denies: fever(s) or chills Eyes: Denies: change in vision ENMT: Denies: throat pain Card: Denies: chest pain Resp: Denies: dyspnea GI: Reports: abdominal pain, nausea, vomiting and heartburn; Denies: coffee ground emesis, diarrhea or constipation : Denies: flank pain Musc: Denies: neck pain Skin/Breast: Denies: rash Neuro: Denies: headache(s) Psych: Denies: anxiety Endo: Denies: polyuria Stone/Lymph: Denies: easy bruising All/Imm: Denies: urticaria Medications/Allergies Home Medications Medication Instructions Recorded Confirmed Last Taken Type albuterol sulfate 90 mcg/actuation 2 puff INHALATION Q6H PRN 11/23/19 04/24/20 04/22/20 History aerosol inhaler valacyclovir 1 gram tablet 1,000 mg PO DAILY PRN tab 11/23/19 04/24/20 Unknown History ondansetron HCl 4 mg tablet 4 mg PO QID PRN #14 tab 01/03/20 04/24/20 Unknown Rx tramadol 50 mg tablet 50 mg PO BID PRN #14 tab 01/12/20 04/24/20 Unknown Rx citalopram 40 mg tablet 40 mg PO DAILY #90 tab 02/28/20 04/24/20 04/23/20 Rx trazodone 100 mg tablet 200 mg PO .at bedtime #90 tab 03/08/20 04/24/20 04/23/20 Rx fluticasone propionate 50 2 spray INTRANASAL BID #18.2 ml 03/18/20 04/24/20 04/23/20 Rx mcg/actuation nasal spray,suspension sitagliptin 100 mg tablet 100 mg PO DAILY #30 tab 04/12/20 04/24/20 04/24/20 Rx Allergies Allergy/AdvReac Type Severity Reaction Status Date / Time cephalexin [From Keflex] Allergy Intermediate Hives Verified 04/11/20 15:21 Penicillins Allergy Intermediate Hives Verified 04/11/20 15:21 PFSH Acute PFSH: Medical History Anxiety and depression Chronic left hip pain Gastroesophageal reflux Hypothyroidism Type 2 diabetes mellitus, without long-term current use of insulin Surgical History H/O carpal tunnel repair H/O tubal ligation H/O: hysterectomy History of appendectomy History of tonsillectomy and adenoidectomy Status post colonoscopy (04/23/20) Repeat in 10 years Family History Father Lung disease Other Atrial fibrillation CAD (coronary artery disease) COPD (chronic obstructive pulmonary disease) Cancer Stroke Social History (Updated 04/24/20 @ 20:12 by Rosey Ramon MD) Smoking and tobacco status: current every day smoker cigarettes Packs smoked per day: 1 Alcohol intake: never Substance/Drug Use: never Household members: family Housing: House Vitals/I&O/Wt Last Vital Signs Temp 98.2 F 04/24/20 12:58 Pulse 97 04/24/20 19:09 Resp 16 04/24/20 19:09 BP 140/86 04/24/20 19:09 Pulse Ox 93 04/24/20 19:09 Weight last 48 hrs Weight 77.111 kg Physical Exam Narrative: EXAM NARRATIVE: Head to toe examination Patient lying in her bed, seems to be having distress because of abdominal pain EOMI, PERRLA Patient appears dehydrated, dry mucous membranes Abdomen soft, nontender on deep palpation, no signs of peritonitis, bowel sound present S1, S2 sinus tachycardia Neurologically nonfocal exam Skin does not show any sign ischemia gangrene ulcer, multiple body tattoos Appropriate mood and affect Pertinent negatives No active signs of peritonitis Data : 04/24/20 13:37 04/24/20 15:39 A&P Assessment and plan (1) Intractable vomiting: Status: Acute (2) Hyperglycemia: Status: Acute (3) Dehydration: Status: Acute (4) Hypokalemia: Status: Acute (5) Hypomagnesemia: Status: Acute Additional A&P Information Intractable nausea vomiting after colonoscopy No pancreatitis seen on CT abdomen however lipase is high, she does not drink alcohol, she smokes 1 pack/day Etiology for high lipase could be splenic flexure inflation during colonoscopy Keep her n.p.o. Normal saline with potassium supplementation maintenance fluid rate Analgesia with morphine Zofran & Reglan to be used alternatively We will check triglyceride level Poorly controlled type 2 diabetes, hyperglycemia without DKA Would manage her hyperglycemia with normal saline for now considering n.p.o. status will only keep her on sliding scale Ketones negative Extreme dehydration with electrolyte abnormality Potassium and magnesium repleted Currently on IV fluids maintenance rate DVT prophylaxis Lovenox N.p.o. Code Attestations Medical Necessity Statement*: Anticipating discharge in less than 48 hours currently need admission for intractable nausea vomiting needing IV medications and fluid resuscitation Time Spent in Patient Care: 50 Coding Level of Care Code Acute Avionics Systems Repairer for Chg Fwd Diagnoses Intractable vomiting R11.10 Hyperglycemia R73.9 Dehydration E86.0 Hypokalemia E87.6 Hypomagnesemia E83.42
--- NOTE | 2020-04-24 19:22 | ECG_ITS ---
Measurements Intervals [place] Rate: 119 P: 61 WI: 125 QRS: -7 QRSD: 88 T: 53 QT: 352 QTc: 496 SINUS TACHYCARDIA ABNORMAL RHYTHM ECG Compared to ECG 04/24/2020 15:56:53 Sinus rhythm no longer present Electronically Signed On 04-25-2020 11:48:20 CDT by Gaston Fowler M.D. [id number]
--- NOTE | 2020-04-24 19:28 | CTR_ITS ---
PROCEDURE INFORMATION: Exam: CT Abdomen With Contrast Exam date and time: 04/24/2020 7:30 PM Age: 50 years old Clinical indication: Abdominal pain; Acute; Prior surgery; Surgery date: 6+ months; Surgery type: Hyst tubal appy colonoscopy 2 days ago; Additional info: Pancreatitis TECHNIQUE: Imaging protocol: Computed tomography images of the abdomen with intravenous contrast. Radiation optimization: All CT scans at this facility use at least one of these dose optimization techniques: automated exposure control; mA and/or kV adjustment per patient size (includes targeted exams where dose is matched to clinical indication); or iterative reconstruction. Contrast material: OMNI; Contrast volume: 95 ml; Contrast route: IV; COMPARISON: CT abdomen pelvis wo con [id number] 12/03/2019 11:59 AM RADIATION DOSE METRICS: Total DLP: 504.56 mGy-cm FINDINGS: Liver: Normal. No mass. Gallbladder and bile ducts: Normal. No calcified stones. No ductal dilation. Pancreas: Normal. No ductal dilation. No evidence of swelling or ductal dilatation Spleen: Normal. No splenomegaly. Adrenals: Normal. No mass. Kidneys and ureters: Normal. No hydronephrosis. Stomach and bowel: Visualized stomach and bowel are unremarkable. No obstruction. No mucosal thickening. Intraperitoneal space: Unremarkable. No free air. No significant fluid collection. Lymph nodes: Unremarkable. No enlarged lymph nodes. Vasculature: Unremarkable. No abdominal aortic aneurysm. Bones/joints: Unremarkable.No acute fracture. No dislocation. Soft tissues: Unremarkable. CT/CT abdomen w con* [id number] IMPRESSION: Unremarkable abdomen No imaging evidence for pancreatitis Radiation Dose CTDIVOL = (mGy): DLP = 504.56 (mGy-cm)
[2020-04-24] MEDS: iohexol 300 mg/mL 100 mL Btl IV (19:46)
[2020-04-24 20:30] LABS: Troponin 5 6HR 41.79 ng/mL (0-10)
[2020-04-24 22:37] LABS: Glucose Point of Care 160 mg/dL (70-110)
[2020-04-24] MEDS: enoxaparin 40 mg/0.4 mL Syringe SUBCUT (23:01)
[2020-04-24] MEDS: acetaminophen 325 mg Tablet 650 MG PO (23:02)
[2020-04-24 23:08] LABS: Triglycerides 132 mg/dL (0-150)
[2020-04-24] MEDS: morphine 4 mg/mL SDV 1 mL 2 MG IVP (23:52)
[2020-04-25] VITALS (11 sets, daily range): BP systolic 118–187; BP diastolic 71–94; PULSE 68–101; RESP 16–20; TEMP 36.7–37.7; O2SAT 90–97
[2020-04-25] MEDS: pantoprazole DR 40 mg Tablet PO (04:25)
[2020-04-25 06:13] LABS: Basophils # 0.1 10^3/uL (0.0-0.1); Basophils % 0.9 %; Eosinophils % 0.1 %; Hematocrit 62.7 % (37.0-47.0); Lymphocytes # 2.5 10^3/uL (0.8-4.8); Lymphocytes % 18.5 %; Mean Corpuscular HGB Conc 35.1 g/dL (30.0-36.0); Mean Corpuscular Hemoglobin 30.9 pg (28.0-34.0); Mean Corpuscular Volume 88.2 fL (81-99); Mean Platelet Volume 9.7 fL (7.4-10.4); Monocytes # 0.9 10^3/uL (0.2-0.9); Monocytes % 6.7 %; Neutrophils # 9.9 10^3/uL (1.8-7.7); Neutrophils % 73.4 %; Nucleated Red Blood Cells % 0 %; Platelet Count 110 10^3/cmm (130-400); Red Blood Count 7.11 10^6/uL (4.1-5.3); Red Cell Distribution Width 13.2 % (12.1-15.1); White Blood Count 13.5 10^3/uL (4.0-10.0)
[2020-04-25] MEDS: acetaminophen 325 mg Tablet 650 MG PO (06:17)
[2020-04-25] MEDS: metoclopramide 5 mg/mL SDV 2 mL 10 MG IVP ×2 (06:22→22:05)
[2020-04-25 06:26] LABS: Slide Review Slide Review Perform
[2020-04-25 06:29] LABS: Glucose Point of Care 169 mg/dL (70-110)
[2020-04-25] MEDS: sodium chlor 0.9% + KCl 40 mEq 40 MEQ/1,000 ML BAG 125 MEQ IV ×2 (08:11→22:01)
[2020-04-25 08:21] LABS: Anion Gap 15.9 (5-19); Blood Urea Nitrogen 9 mg/dL (6-20); Calcium 8.9 mg/dL (8.5-10.5); Carbon Dioxide 25 mmol/L (22-29); Chloride 102 mmol/L (98-107); Creatinine Clr Calc Pharmacy 110.2337; Glucose 171 mg/dL (65-115); Osmolality Calculated 288 mOsm/kg (285-295); Potassium 3.9 mmol/L (3.5-5.1); Sodium 139 mmol/L (136-145)
[2020-04-25] MEDS: ciprofloxacin 400 MG/200 ML PREMIX 200 MG IV ×2 (10:06→22:01)
--- NOTE | 2020-04-25 10:13 | P.PN_ITS ---
Subjective Subjective: Interval history: Molly reports she feels little bit better today. She reports she has an occasional shake and is not sure what this is from. She reports she has been passing gas. Certainly better than yesterday. Vitals/I&O/Wt Last Vital Signs Temp 99.0 F 04/25/20 07:44 Pulse 100 04/25/20 07:44 Resp 16 04/25/20 07:44 BP 136/74 04/25/20 07:44 Pulse Ox 94 04/25/20 07:44 04/24/20 04/25/20 04/25/20 22:59 06:59 14:59 Intake Total 587.917 / 774.385 3271 / 1000 Output Total 850 / 850 Balance -262.083 / -240.103 7664 / 1000 Weight last 48 hrs Weight 77.111 kg Physical Exam Narrative: EXAM NARRATIVE: General exam no apparent distress Cardiovascular regular rate and rhythm without murmur Lungs clear no wheezing or crackles Abdomen bowel sounds are noted. Soft. Some slight tenderness globally, but more in the epigastric area. Extremities no cyanosis clubbing or edema Data : 04/25/20 05:00 04/25/20 07:47 A&P Assessment and plan (1) Intractable vomiting: This occurred following colonoscopy. Etiology unclear. I suppose this could be a prolonged anesthetic effect. No CT evidence for ileus. Initiate clear liquids Status: Acute (2) Hyperglycemia: Sliding scale insulin Status: Acute (3) Dehydration: Hydrating. This appears clinically resolved Status: Acute (4) Hypokalemia: Status: Acute (5) Hypomagnesemia: Resolved Status: Acute Additional A&P Information Mild elevation in temperature, elevation in white blood cell count. Cannot rule out bacterial translocation. As she is allergic to penicillin will start Cipro and Flagyl. Blood culture obtained. Leukocytosis, polycythemia, thrombocytopenia. Suspect lab error in regards to thrombocytopenia and polycythemia. Repeat CBC at noon History of GERD. Continue Protonix Tobacco dependency. Discussed abstaining from tobacco Type 2 diabetes. Sliding scale insulin Continue IV fluids Full code Lovenox for DVT prophylaxis I have notified the surgeon who performed the colonoscopy. Attestations Medical Necessity Statement*: Needs continued hospitalization for supportive care secondary to intractable nausea and vomiting. I will reevaluate this afternoon to determine if she could be discharged. Coding Level of Care Code Acute Outpatient Physical Therapist Assistant for Chg Fwd Diagnoses Intractable vomiting R11.10 Hyperglycemia R73.9 Dehydration E86.0 Hypokalemia E87.6 Hypomagnesemia E83.42
[2020-04-25] MEDS: metroNIDAZOLE IV 500 MG/100 ML PREMIX 100 MG IV ×3 (11:19→23:59)
[2020-04-25] MEDS: morphine 4 mg/mL SDV 1 mL 2 MG IVP ×3 (11:52→21:59)
[2020-04-25 12:05] LABS: Glucose Point of Care 159 mg/dL (70-110)
--- NOTE | 2020-04-25 12:36 | XR_ITS ---
WS: [id number] PORTABLE CHEST HISTORY: elevated WBC count COMPARISON: None available. Lungs are clear and well expanded. No pleural effusion or pneumothorax. Cardiac size: Normal. Mediastinum/Aorta: Normal mediastinum. No osseous abnormality seen. XR/XR chest 1V portable [id number] IMPRESSION: Unremarkable portable chest.
[2020-04-25 12:45] LABS: Basophils # 0.1 10^3/uL (0.0-0.1); Basophils % 0.4 %; Eosinophils % 0.2 %; Hematocrit 45.1 % (37.0-47.0); Hemoglobin 15.2 g/dL (11.5-15.3); Lymphocytes # 3.4 10^3/uL (0.8-4.8); Lymphocytes % 18.5 %; Mean Corpuscular HGB Conc 33.7 g/dL (30.0-36.0); Mean Corpuscular Hemoglobin 30.3 pg (28.0-34.0); Monocytes # 1.4 10^3/uL (0.2-0.9); Monocytes % 7.4 %; Neutrophils # 13.6 10^3/uL (1.8-7.7); Neutrophils % 72.9 %; Nucleated Red Blood Cells % 0 %; Platelet Count 262 10^3/cmm (130-400); Red Blood Count 5.01 10^6/uL (4.1-5.3); Red Cell Distribution Width 12.3 % (12.1-15.1); White Blood Count 18.6 10^3/uL (4.0-10.0)
--- NOTE | 2020-04-25 12:50 | CT_ITS ---
WS: [id number] CT ABDOMEN AND PELVIS NONCONTRAST HISTORY: Abdominal pain. Recent colonoscopy. TECHNIQUE: Imaging performed through the abdomen and pelvis. Coronal and sagittal reformats are submi tted. All CT scans at [facility] use at least one of these dose optimization techniques: automated exposure control; mA and/or kV adjustment per patient size (includes targeted exams where d ose is matched to clinical indication); or iterative reconstruction. DLP: 799.38 mGy.cm COMPARISON: 04/24/2020 Lower thorax: Lung bases are clear. No hiatal hernia. Liver: Normal, no mass or intrahepatic dilatation. Gallbladder: High density contrast in the gallbladder from vicarious excretion. Pancreas: Normal. Spleen: Normal size spleen with granulomata. Adrenal glands: Normal. Right kidney: Normal size with no stones, masses or atrophy. Left kidney: Normal size with no stones, mass or atrophy. Abdominal aorta and IVC are unremarkable. No free fluid, intraperitoneal air or significant lymphadenopathy. GI tract: Prior appendectomy. No GI tract obstruction. No mucosal thickening or pericolonic inflammat ion. High density material in the RIGHT colon may be from the medicinal ingestion. No oral contrast h as been provided. Abdominal wall: Small amount of air from subcutaneous injection in the LEFT lateral abdominal wall. Pelvis: Prior hysterectomy. Urinary bladder is negative. Osseous structures: Unremarkable. CT/CT abdomen pelvis wo con [id number] IMPRESSION: 1. No colonic edema, obstruction or diverticulitis identified. 2. Prior appendectomy. 3. No free air.
[2020-04-25 17:06] LABS: Glucose Point of Care 139 mg/dL (70-110)
--- NOTE | 2020-04-25 18:00 | P.CONIM_ITS ---
Providers/Reason For Consult Consulting Physican/Specialty*: Dr. Canseco Reason for Consult*: Intractable nausea and vomiting Attending Physician: Filippo Canseco MD Primary Care Provider: Carine Booth DO History of Present Illness History of Present Illness Molly Kenny is a 50 year old female who had undergone a screening colonoscopy 2 days ago. Patient states that she is having severe nausea and vomiting while having the last bottle of magnesium citrate for bowel prep. After she was discharged home she continued to have severe nausea and vomiting associated epigastric pain. She was also hypotensive and therefore presented to the ER for further evaluation. She was noted to have a low-grade temp, leukocytosis and was therefore admitted to the hospital for observation. She has some epigastric pain but denies any generalized pain. Passing flatus. She had a CT abdomen pelvis which did not show any abnormalities. Review of Systems General: Reports: 10 or more systems reviewed and unremarkable except in HPI and below Meds/Allergies Home Medications and Allergies Home Medications Medication Instructions Recorded Confirmed Last Taken Type albuterol sulfate 90 mcg/actuation 2 puff INHALATION Q6H PRN 11/23/19 04/24/20 04/22/20 History aerosol inhaler valacyclovir 1 gram tablet 1,000 mg PO DAILY PRN tab 11/23/19 04/24/20 Unknown History ondansetron HCl 4 mg tablet 4 mg PO QID PRN #14 tab 01/03/20 04/24/20 Unknown Rx tramadol 50 mg tablet 50 mg PO BID PRN #14 tab 01/12/20 04/24/20 Unknown Rx citalopram 40 mg tablet 40 mg PO DAILY #90 tab 02/28/20 04/24/20 04/23/20 Rx trazodone 100 mg tablet 200 mg PO .at bedtime #90 tab 03/08/20 04/24/20 04/23/20 Rx fluticasone propionate 50 2 spray INTRANASAL BID #18.2 ml 03/18/20 04/24/20 04/23/20 Rx mcg/actuation nasal spray,suspension sitagliptin 100 mg tablet 100 mg PO DAILY #30 tab 04/12/20 04/24/20 04/24/20 Rx Allergies Allergy/AdvReac Type Severity Reaction Status Date / Time cephalexin [From Keflex] Allergy Intermediate Hives Verified 04/11/20 15:21 Penicillins Allergy Intermediate Hives Verified 04/11/20 15:21 Current Medications Current Medications Generic Name Dose Route Start Last Admin Trade Name Freq PRN Reason Stop Dose Admin Acetaminophen 650 mg 04/24/20 22:44 04/25/20 06:17 Tylenol PO 650 mg Q4H PRN Administration MILD PAIN OR INCREASE TEMP Enoxaparin Sodium 40 mg 04/24/20 21:58 04/24/20 23:01 Lovenox SUBCUT 40 mg Q24H LACY Administration Potassium Chloride/Sodium Chloride 40 meq in 1,000 mls @ 125 mls/hr 04/24/20 18:45 04/25/20 08:11 Sodium Chlor 0.9% + Kcl 40 Meq IV 125 mls/hr .Q8H LACY Administration Ciprofloxacin/Dextrose 400 mg in 200 mls @ 200 mls/hr 04/25/20 09:45 04/25/20 17:09 Cipro IV Infused Q12H LACY Infusion Protocol Metronidazole 500 mg in 100 mls @ 100 mls/hr 04/25/20 09:45 04/25/20 17:11 Flagyl Iv IV 100 mls/hr Q6H LACY Administration Protocol Insulin Aspart 0 unit 04/24/20 21:58 04/25/20 17:22 Novolog SUBCUT Not Given WM&BEDTIME LACY Protocol Metoclopramide HCl 10 mg 04/24/20 21:58 04/25/20 06:22 Reglan IVP 10 mg Q4H PRN Administration vomit Morphine Sulfate 2 mg 04/24/20 21:58 04/25/20 17:11 Morphine IVP 2 mg Q4H PRN Administration pain Pantoprazole Sodium 40 mg 04/25/20 03:55 04/25/20 08:12 Protonix PO Not Given DAILY LACY PFSH Acute PFSH: Medical History Anxiety and depression Chronic left hip pain Gastroesophageal reflux Hypothyroidism Type 2 diabetes mellitus, without long-term current use of insulin Surgical History H/O carpal tunnel repair H/O tubal ligation H/O: hysterectomy History of appendectomy History of tonsillectomy and adenoidectomy Status post colonoscopy (04/23/20) Repeat in 10 years Family History Father Lung disease Other Atrial fibrillation CAD (coronary artery disease) COPD (chronic obstructive pulmonary disease) Cancer Stroke Social History Smoking and tobacco status: current every day smoker cigarettes Packs smoked per day: 1 Alcohol intake: never Substance/Drug Use: never Household members: family Housing: House Vitals/I&O/Wt Last Vital Signs Temp 99.6 F 04/25/20 15:00 Pulse 69 04/25/20 15:00 Resp 16 04/25/20 17:11 BP 183/92 04/25/20 15:00 Pulse Ox 93 04/25/20 15:00 04/25/20 04/25/20 04/25/20 06:59 14:59 22:59 Intake Total 587.917 / 189.619 1038 / 1540 200 / 1540 Output Total 850 / 850 300 / 800 500 / 800 Balance -262.083 / -583.892 1779 / 740 -300 / 740 Weight last 48 hrs Weight 170 lb Physical Exam Narrative: EXAM NARRATIVE: HEENT: Normocephalic Eye: Sclera /conjunctiva normal Abdomen: Soft to palpation, no guarding or rigidity, minimally tender in the epigastric region Neurological: Oriented to place person and time Skin: Intact, no lesions appreciated on gross exam Data Micro: Micro: Microbiology 04/25/20 11:39 Blood Culture - Pr eliminary Blood SPECIMEN COLLE JOSE 04/25/20 11:40 Blood Culture - Pr eliminary Blood SPECIMEN [facility] A&P Assessment and plan (1) Intractable vomitin-year-old female status post colonoscopy which was uneventful and did not require any biopsies or further intervention presents with intractable nausea and vomiting with associated epigastric pain. She also has low-grade fever with leukocytosis. She was started on Cipro and Flagyl. At present she is hemodynamically stable. She is tolerating a clear liquid diet hopefully she can go home tomorrow Status: Acute Coding Level of Care Code Acute Dietetic Technician for Chg Fwd Diagnoses Intractable vomiting R11.10
[2020-04-25 21:04] LABS: Glucose Point of Care 143 mg/dL (70-110)
[2020-04-25] MEDS: trazodone 100 mg Tablet 200 MG PO (21:59)
[2020-04-25] MEDS: citalopram 20 mg Tablet 40 MG PO (21:59)
[2020-04-25] MEDS: enoxaparin 40 mg/0.4 mL Syringe SUBCUT (22:00)
[2020-04-26 03:00] VITALS: BP 163/75; PULSE 67; RESP 20; TEMP 37.1; O2SAT 96
[2020-04-26 05:02] LABS: Basophils # 0.1 10^3/uL (0.0-0.1); Basophils % 0.5 %; Eosinophils # 0.1 10^3/uL (0.0-0.8); Eosinophils % 0.7 %; Hematocrit 47.8 % (37.0-47.0); Hemoglobin 15.9 g/dL (11.5-15.3); Lymphocytes # 5.5 10^3/uL (0.8-4.8); Lymphocytes % 36.1 %; Mean Corpuscular HGB Conc 33.3 g/dL (30.0-36.0); Mean Corpuscular Hemoglobin 30.1 pg (28.0-34.0); Mean Corpuscular Volume 90.5 fL (81-99); Mean Platelet Volume 8.8 fL (7.4-10.4); Monocytes # 1.4 10^3/uL (0.2-0.9); Monocytes % 9.1 %; Neutrophils # 8.1 10^3/uL (1.8-7.7); Neutrophils % 53.1 %; Nucleated Red Blood Cells % 0 %; Platelet Count 279 10^3/cmm (130-400); Red Blood Count 5.28 10^6/uL (4.1-5.3); White Blood Count 15.3 10^3/uL (4.0-10.0)
[2020-04-26 05:26] LABS: Alanine Aminotransferase 19 U/L (0-33); Albumin Level 4.1 g/dL (3.5-5.2); Alkaline Phosphatase 99 IU/L (35-105); Aspartate Amino Transferase 23 U/L (0-32); Blood Urea Nitrogen 8 mg/dL (6-20); Calcium 9.9 mg/dL (8.5-10.5); Carbon Dioxide 23 mmol/L (22-29); Chloride 100 mmol/L (98-107); Globulin 3.2 g/dL (1.3-4.6); Glomerular Filtration Rate 75.3 mL/min (90-130); Glucose 138 mg/dL (65-115); Osmolality Calculated 280 mOsm/kg (285-295); Sodium 136 mmol/L (136-145); Total Bilirubin 0.7 mg/dL (0.15-1.2); Total Protein 7.3 g/dL (6.6-8.7)
[2020-04-26] MEDS: metroNIDAZOLE IV 500 MG/100 ML PREMIX 100 MG IV ×2 (06:21→12:19)
[2020-04-26 06:40] LABS: Glucose Point of Care 163 mg/dL (70-110)
[2020-04-26] MEDS: metoclopramide 5 mg/mL SDV 2 mL 10 MG IVP (06:59)
[2020-04-26 07:00] VITALS: BP 207/94; PULSE 83; RESP 18; TEMP 36.9; O2SAT 95
[2020-04-26] MEDS: pantoprazole DR 40 mg Tablet PO (08:21)
[2020-04-26] MEDS: ciprofloxacin 400 MG/200 ML PREMIX 200 MG IV (08:23)
[2020-04-26] MEDS: sodium chlor 0.9% + KCl 40 mEq 40 MEQ/1,000 ML BAG 125 MEQ IV (08:26)
--- NOTE | 2020-04-26 08:39 | PM.PN ---
Subjective Subjective: Interval history: Patient denies significant abdominal pain nausea vomiting tolerating full liquid diet, ready to go home Vitals/I&O/Wt Last Vital Signs Temp 98.5 F 04/26/20 07:00 Pulse 83 04/26/20 07:00 Resp 18 04/26/20 07:00 BP 207/94 04/26/20 07:00 Pulse Ox 95 04/26/20 07:00 04/25/20 04/26/20 04/26/20 22:59 06:59 14:59 Intake Total 1540 / 4180 1300 / 4180 Output Total 1530 / 2550 720 / 2550 Balance 0 580 / 1630 Weight last 48 hrs Weight 170 lb Physical Exam Narrative: EXAM NARRATIVE: Abdomen: Soft, nontender, nondistended Data : 04/26/20 04:35 04/26/20 04:35 Micro: Microbiology 04/25/20 11:39 Blood Culture - Preliminary Blood SPECIMEN COLLECTED 04/25/20 11:40 Blood Culture - Preliminary Blood SPECIMEN COLLECTED A&P Assessment and plan (1) Intractable vomitin-year-old female status post colonoscopy which was uneventful and did not require any biopsies or further intervention presents with intractable nausea and vomiting with associated epigastric pain. Her white count is trending down, she is tolerating a liquid diet and her abdominal pain is minimal. She should be able to go home today. Status: Resolved Attestations Medical Necessity Statement*: Abdominal pain, going home today Coding Level of Care Code Acute Electrician Supervisor [employer]station for Steven Bernal Diagnoses Intractable vomiting R11.10
[2020-04-26 08:48] VITALS: RESP 18
[2020-04-26] MEDS: morphine 4 mg/mL SDV 1 mL 2 MG IVP (08:48)
[2020-04-26] MEDS: lisinopril 5 mg Tablet PO (09:13)
[2020-04-26 11:00] VITALS: BP 169/93; PULSE 80; RESP 16; TEMP 37.1; O2SAT 95
[2020-04-26 11:59] LABS: Glucose Point of Care 173 mg/dL (70-110)
--- NOTE | 2020-04-26 12:28 | PM.DCS ---
Discharge Providers Date of Admission: 04/24/20 19:11 Date of Discharge: April 26, 2020 Attending Provider at Admission: Rosey Ramon MD Attending Provider at Discharge: Filippo Canseco MD Primary Care Provider: Carine Booth DO Diagnoses at Discharge Discharge Diagnosis (1) Intractable vomiting: Status: Acute Problem details: Resolved Reason for Visit Reason for Visit: Reason For Visit: POST OP PROBLEMS Hospital Course Hospital Course: Molly is a 50-year-old white female who underwent colonoscopy and following this had recurrent abdominal discomfort and vomiting. She presented on the , 1 day after her colonoscopy with unable to keep anything down for approximately [address] of abdomen did not demonstrate any obvious perforation or pathology. Lipase was high, suspected secondary to just recurrent vomiting. She was made n.p.o., nausea medication was initiated, and she was hydrated. Initial lactate was high so repeat was ordered and was normal with the start of hydration. Hypokalemia was present, which was supplemented. During her hospital stay a chest x-ray was performed which demonstrated no aspiration pneumonitis. It was noted her white blood cell count was elevated, and mild temperature elevations were noted. Therefore Cipro and Flagyl was started in case microperforation was present. CT scan of abdomen and pelvis without contrast was repeated secondary to this demonstrating no perforation or other pathology. Blood cultures were obtained which showed no growth to date while patient was in the hospital. With supportive care, patient had significant improvement and by April 26 she reported she wanted to go home. She was able to eat a soft mechanical diet without vomiting. She was afebrile. White blood cell count 25.4 on initial evaluation was down to 15.3. She will be discharged on 5 more days of Cipro and Flagyl. Surgery also saw her during her hospital stay and agreed with this plan. She will follow-up with her primary care provider, and return here for any recurrence of significant abdominal pain, recalcitrant vomiting, fever, any other concerns. Lisinopril was added while in the hospital secondary to elevated blood pressure and Protonix was added for reflux. Physical Exam Narrative: EXAM NARRATIVE: General exam no apparent distress Cardiovascular regular rate and rhythm Lungs clear no wheezing or crackles Abdomen mild epigastric tenderness to palpation Extremities no cyanosis clubbing or edema Discharge Data Data Completed and Pending: Completed Studies During Hospitalization Category Date Time Status CT abdomen pelvis wo con [id number] Rout ine Cat Scan 04/25/20 12:[address] abdomen w con* [id number] Urgent Cat Scan 04/24/20 19:28 Completed XR chest 1V natalie ble [id number] Routine Exams 04/25/20 12:36 Completed Pending at discharge Category Date Time Status Blood Culture Sta t Lab 04/25/20 11:39 Results Labs from last 24 hours 04/26/20 04/26/20 04/26/20 11:43 06:22 04:35 WBC RBC Hgb Hct MCV MCH MCHC RDW Plt Count MPV Neut % (Auto) Lymph % (Auto) Amelia % (Auto) Eos % (Auto) Baso % (Auto) Neut # (Auto) Lymph # (Auto) Amelia # (Auto) Eos # (Auto) Baso # (Auto) Nucleated RBC % (a uto) Nucleated RBCs # Sodium 136 Potassium 4.0 Chloride 100 Carbon Dioxide 23 Anion Gap 17.0 BUN 8 Creatinine 0.8 GFR Calculation 75.3 L Glucose 138 H POC Glucose 173 163 Calculated Osmolal ity 280 L Calcium 9.9 Total Bilirubin 0.7 AST 23 ALT 19 Alkaline Phosphata se 99 Total Protein 7.3 Albumin 4.1 Globulin 3.2 04/26/20 04/25/20 04/25/20 04:35 20:59 16:49 WBC 15.3 H RBC 5.28 Hgb 15.9 H Hct 47.8 H MCV 90.5 MCH 30.1 MCHC 33.3 RDW 12.0 L Plt Count 279 MPV 8.8 Neut % (Auto) 53.1 Lymph % (Auto) 36.1 Amelia % (Auto) 9.1 Eos % (Auto) 0.7 Baso % (Auto) 0.5 Neut # (Auto) 8.1 H Lymph # (Auto) 5.5 H Amelia # (Auto) 1.4 H Eos # (Auto) 0.1 Baso # (Auto) 0.1 Nucleated RBC % (a uto) 0 Nucleated RBCs # 0.0 Sodium Potassium Chloride Carbon Dioxide Anion Gap BUN Creatinine GFR Calculation Glucose POC Glucose 143 139 Calculated Osmolal ity Calcium Total Bilirubin AST ALT Alkaline Phosphata se Total Protein Albumin Globulin 04/25/20 11:39 WBC 18.6 H RBC 5.01 Hgb 15.2 D Hct 45.1 MCV 90.0 MCH 30.3 MCHC 33.7 RDW 12.3 Plt Count 262 MPV 9.0 Neut % (Auto) 72.9 Lymph % (Auto) 18.5 Amelia % (Auto) 7.4 Eos % (Auto) 0.2 Baso % (Auto) 0.4 Neut # (Auto) 13.6 H Lymph # (Auto) 3.4 Amelia # (Auto) 1.4 H Eos # (Auto) 0.0 Baso # (Auto) 0.1 Nucleated RBC % (a uto) 0 Nucleated RBCs # 0.0 Sodium Potassium Chloride Carbon Dioxide Anion Gap BUN Creatinine GFR Calculation Glucose POC Glucose Calculated Osmolal ity Calcium Total Bilirubin AST ALT Alkaline Phosphata se Total Protein Albumin Globulin Vitals: Last Vital Signs Temp 98.7 F 04/26/20 11:00 Pulse 80 04/26/20 11:00 Resp 16 04/26/20 11:00 BP 169/93 04/26/20 11:00 Pulse Ox 95 04/26/20 11:00 Discharge Plan Discharge Patient Disposition: Home, Self-Care Condition: Stable Prescriptions: New pantoprazole 40 mg Tablet,Delayed Release (Dr/Ec) 40 mg PO DAILY Qty: 30 RF: 0 lisinopril 5 mg Tablet 5 mg PO DAILY Qty: 30 RF: 0 ciprofloxacin HCl [Cipro] 500 mg tablet 500 mg PO BID Qty: 10 RF: 0 metronidazole [Flagyl] 500 mg tablet 500 mg PO QID Qty: 20 RF: 0 Continued albuterol sulfate [ProAir HFA] 90 mcg/actuation HFA aerosol inhaler 2 puff INHALATION Q6H PRN (Reason: Shortness Of Breath) RF: 0 valacyclovir [Valtrex] 1 gram tablet 1,000 mg PO DAILY PRN (Reason: prn) RF: 0 tramadol 50 mg tablet 50 mg PO BID PRN (Reason: pain) Qty: 14 RF: 0 Zofran 4 mg tablet 4 mg PO QID PRN (Reason: nausea and vomiting) Qty: 14 RF: 0 citalopram [Celexa] 40 mg tablet 40 mg PO DAILY Qty: 90 RF: 0 trazodone 100 mg tablet 200 mg PO .at bedtime Qty: 90 RF: 0 fluticasone propionate [Flonase Allergy Relief] 50 mcg/actuation spray,suspension 2 spray INTRANASAL BID Qty: 18.2 RF: 4 Januvia 100 mg tablet 100 mg PO DAILY Qty: 30 RF: 1 Discharge Orders: Discharge Order (Routine); Ordered 04/26/20 Ordered By: Filippo Canseco Referrals: Carine Booth DO [Primary Care Provider] - 4-7 days Discharge Diet: Advance as tolerated Discharge Activity: Increase activity as tolerated Activity Restrictions/Additional Instructions: Take all medicine as prescribed. Follow-up with your primary care provider for recheck of blood pressure and adjustment of medication. Return for any fever, recalcitrant vomiting or severe abdominal pain. Discharge Attestations Time Spent in Discharge Care*: greater than 30 min Quality Metrics Clinical Quality Measures During this hospital stay, did patient experience: None Coding Level of Care Code Acute Oracle Distribution Consultant for Caseyg Fwd Diagnoses Intractable vomiting R11.10
[2020-04-26 13:33] VITALS: BP 169/93; PULSE 80; RESP 16; TEMP 37.1; O2SAT 95
== END 2020-04-26 13:33 | disposition home or self-care (01) | DRG 392 ==
LOC: ER 13:14 → MEDSURG 04-25 07:00
PROVIDERS: Emergency Medicine; Admitting Provider Internal Medicine; PCP Family Medicine; Visit Provider Internal Medicine
DX: R11.2 Nausea with vomiting, unspecified (principal); R00.0 Tachycardia, unspecified; E86.0 Dehydration; E11.65 Type 2 diabetes mellitus with hyperglycemia; F17.210 Nicotine dependence, cigarettes, uncomplicated; D69.6 Thrombocytopenia, unspecified; D75.1 Secondary polycythemia; F41.8 Other specified anxiety disorders; G89.29 Other chronic pain; M25.552 Pain in left hip; K21.9 Gastro-esophageal reflux disease without esophagitis; E03.9 Hypothyroidism, unspecified; E87.6 Hypokalemia; E83.42 Hypomagnesemia; Z79.84 Long term (current) use of oral hypoglycemic drugs
CPT/HCPCS: 12345; 36415; 36416; 71045; 74160; 74176; 80048; 80053; 81001; 82009; 82962; 83605; 83690; 83735; 84478; 84484; 85025; 87040; 93005; 96372; 96375; 99283; J0360; J0744; J1650; J1815; J1885; J2270; J2405; J2765; J3475; J3490; J7030; Q9967; S0030

== ENCOUNTER 2020-04-24 12:51 | Emergency (ER) | payer MEDICAID, SELFPAY | END 2020-04-24 19:11 | disposition admitted as inpatient to this hospital (09) | LOC: ER 06-10 13:48 | PROVIDERS: Emergency Provider Emergency Medicine; PCP Family Medicine | DX: R10.9 Unspecified abdominal pain (principal); E11.9 Type 2 diabetes mellitus without complications; F17.210 Nicotine dependence, cigarettes, uncomplicated | CPT/HCPCS: 36415; 36416; 80048; 80053; 81001; 82009; 82962; 83605; 83690; 83735; 84484; 85025; 93005; 96372; 96375; 99283; J0360; J1815; J1885; J2270; J2405; J3475; J3490; J7030 ==

== ENCOUNTER → 2020-08-13 09:30 | Outpatient (BNVA) | payer MEDICAID, SELFPAY | PROVIDERS: PCP Family Medicine; Visit Provider Family Medicine | DX: I10 Essential (primary) hypertension (principal); E11.9 Type 2 diabetes mellitus without complications | CPT/HCPCS: 80053; 80061; 82043; 83036 ==

== ENCOUNTER 2021-02-07 11:24 | Outpatient (CLI) | payer MEDICAID, SELFPAY ==
--- NOTE | 2021-02-07 11:30 | XR_ITS ---
WS: [id number] CERVICAL SPINE 3 VIEWS HISTORY: chronic neck pain COMPARISON: None available. Mild straightening of the normal cervical lordosis. C5 retrolisthesis by 3 mm. Moderate disc space na rrowing at C5-6. No fracture. Normal alignment of the facet joints. No prevertebral soft tissue edema. Lateral masses are normally aligned. Odontoid is intact. Soft tissues are normal. XR/XR cervical spine 3V* [id number] IMPRESSION: 1. Mild straightening of normal cervical lordosis may be due to spasm. 2. Moderate degenerative disc disease at C5-6. 3. C5 retrolisthesis by 3 mm.
== END 2021-02-07 11:25 | disposition home or self-care (01) ==
LOC: RADWPI 11:27
PROVIDERS: PCP Family Medicine; Visit Provider Family Medicine
DX: G89.29 Other chronic pain (principal); M50.322 Other cervical disc degeneration at C5-C6 level
CPT/HCPCS: 72040

== ENCOUNTER → 2021-04-09 08:20 | Outpatient (BNVA) | payer MEDICAID, SELFPAY | PROVIDERS: PCP Family Medicine; Visit Provider Family Medicine | DX: E11.9 Type 2 diabetes mellitus without complications (principal); I10 Essential (primary) hypertension; R10.11 Right upper quadrant pain; F17.219 Nicotine dependence, cigarettes, with unspecified nicotine-induced disorders | CPT/HCPCS: 80053; 80061; 82043; 83036; 85025 ==

== ENCOUNTER 2021-05-01 06:42 | Outpatient (CLI) | payer MEDICAID, SELFPAY ==
--- NOTE | 2021-05-01 07:15 | US_ITS ---
WS: [id number] ULTRASOUND ABDOMEN LIMITED CLINICAL INFORMATION: ruq pain COMPARISON: None. FINDINGS: Liver Size: Normal. Craniocaudal length: 14.5 cm. Echogenicity: Diffuse fatty infiltration. Surface nodularity: None. Mass (size and location): None. Bile ducts Intrahepatic ducts: Normal. Common bile duct diameter: 0.3 cm. Gallbladder Contracted Gallstones: None. Gallbladder sludge: None. Gallbladder wall thickening: None. Pericholecystic fluid: None. Sonographic Mack sign: Absent. Pancreas Not well seen due to bowel gas Right kidney: Normal. Hydronephrosis: None. Size: 11.0 cm x 3.8 cm x 4.7 cm. Abdominal aorta and IVC Visualized portions are normal. Ascites: None. US/US gall bladder [id number] IMPRESSION: 1. Diffuse fatty infiltration the liver. 2. Gallbladder is contracted but otherwise unremarkable. 3. No hydronephrosis in right kidney.
== END 2021-05-01 06:43 | disposition home or self-care (01) ==
PROVIDERS: PCP Family Medicine; Visit Provider Family Medicine
DX: R10.11 Right upper quadrant pain (principal); K76.0 Fatty (change of) liver, not elsewhere classified
CPT/HCPCS: 76705

== ENCOUNTER → 2021-05-09 12:02 | Outpatient (BNVA) | payer MEDICAID, SELFPAY | PROVIDERS: PCP Family Medicine; Visit Provider Surgery | DX: Z01.818 Encounter for other preprocedural examination (principal); Z20.822 Contact with and (suspected) exposure to COVID-19 | CPT/HCPCS: 87635 ==

== ENCOUNTER 2021-05-14 07:45 | Day surgery (SDC) | payer MEDICAID, SELFPAY ==
[2021-05-13 13:59] VITALS: BMI 32.3
[2021-05-14] VITALS (8 sets, daily range): BP systolic 113–155; BP diastolic 62–118; PULSE 66–85; RESP 14–20; TEMP 36.2–36.8; O2SAT 92–100
[2021-05-14] MEDS: sodium chloride 0.9% 1,000 ML 30 ML IV (08:06)
--- NOTE | 2021-05-14 08:29 | W.PM.OPSUD ---
Surgery/Procedure H&P Update DATE OF PROCEDURE: May 14, 2021 DATE H&P PERFORMED: 05/09/21 H&P UPDATE INFORMATION: I have reviewed H&P completed within last 30 days, I have examined patient prior to procedure and No changes to prior documentation PREOP DIAGNOSIS: Chronic cholecystitis PLANNED PROCEDURE: Operation Date: 05/14/21 09:15 Proposed Procedures p Laparoscopic possible open Cholecystectomy 21542 r10.11(Not Applicable) - Alex Braswell MD
--- NOTE | 2021-05-14 09:05 | ANES.PREANE2 ---
Pre-Anesthetic Assessment Pre-Anesthetic Assessment: Height/Weight: Height 1.57 m Weight 80.286 kg Temp Pulse Resp BP Pulse Ox 98.2 F 71 18 141/118 93 05/14/21 07:58 05/14/21 07:58 05/14/21 07:58 05/14/21 07:58 05/14/21 07:58 Preop Diagnosis: Chronic cholecystitis Proposed Procedure: Operation Date: 05/14/21 09:15 Proposed Procedures p Laparoscopic possible open Cholecystectomy 69558 r10.11(Not Applicable) - Alex Braswell MD Was Beta Hao taken within 24 hours: N/A Was Clonidine taken within 24 hours: N/A Last intake: Intake Last Liquid Date 05/13/21 Last Liquid Time 23:00 Last Solid Date 05/13/21 Last Solid Time 23:00 Social: Social History: Tobacco and No alcohol Exam: Pre-Anes Outpt Exam: alert, oriented x 3 and regular rate & rhythm Airway: Submandibular: WNL Cervical ROM: WNL MP: 2 Dentition: False Pulmonary: Pulmonary: COPD CV/HEM: CV/HEM: HTN GI: GI: GERD Metabolic: Metabolic: DM and Morbid obesity Anesthetic Plan: ASA status: 3 Anesthesia: General Risk of > 500 ml blood loss (7ml/kg in children): No Meds/Allergies Current Medications: Current Medications Generic Name Dose Route Start Last Admin Trade Name Freq PRN Reason Stop Dose Admin Sodium Chloride 1,000 mls @ 30 ml s/hr 05/14/21 08:00 05/14/21 08:06 Sodium Chloride 0.9% IV 05/15/21 07:59 30 mls/hr .Q24H LACY Administration PFSH Anesthesia PFSH: Medical History Anxiety and depression Chronic left hip pain Gastroesophageal reflux Hypothyroidism Type 2 diabetes mellitus, without long-term current use of insulin Surgical History H/O carpal tunnel repair H/O tubal ligation H/O: hysterectomy History of appendectomy History of tonsillectomy and adenoidectomy Status post colonoscopy (04/23/20) Repeat in 10 years Family History Father Lung disease Other Atrial fibrillation CAD (coronary artery disease) COPD (chronic obstructive pulmonary disease) Cancer Stroke Social History Smoking and tobacco status: current every day smoker cigarettes Packs smoked per day: 1 Alcohol intake: never Household members: family Housing: House Data Anesthesia Cardiac Studies: No Data to Display
[2021-05-14] MEDS: levofloxacin-dextrose 5 % 750 MG/150 ML PREMIX 100 MG IV (09:39)
[2021-05-14 10:09] LABS: Glucose Point of Care 191 mg/dL (70-110)
--- NOTE | 2021-05-14 10:25 | PM.OP ---
Operative Report Date of procedure: May 14, 2021 Pre-op Diagnosis: Chronic cholecystitis Post-op Diagnosis: Chronic cholecystitis Omentum and antrum of stomach adherent to the body of the gallbladder Procedure Done: Laparoscopic cholecystectomy Specimens removed/disposition: Gallbladder Surgeon: Alex Braswell Anesthesia: General Condition: stable Disposition: PACU Procedure: The patient was taken to the operating room and was intubated under general anesthesia. After the antibiotic had been administered, the abdomen was prepped and draped in a sterile manner. Using a #15 blade, a 1 centimeter infraumbilical curvilinear incision was made and using an open Bernice technique the peritoneal cavity was entered. A 10 millimeter port was placed and 15 millimeters of pneumoperitoneum was created. A 10 millimeter, 30 degrees scope was then introduced. Three 5 millimeter ports were placed in the epigastric, midclavicular and the anterior axillary line two fingerbreadths below the costal margin on the right side under the direct visualization. Ratcheted forceps were introduced into the lateral most port and was used to retract the fundus of the gallbladder cephalad and using forceps the infundibulum of the gallbladder was retracted laterally. Using L-hook cautery the peritoneum overlying the Calot's triangle was opened medially and laterally until the cystic duct and the cystic artery were skeletonized. Dissection was carried along the body of the gallbladder and after ensuring critical view of safety, 4 clips applied on the cystic duct and 3 clips applied on the cystic artery and cut leaving, 3 clips on the remaining portion of the duct and 2 clips on the remaining portion of the artery. The rest of the gallbladder was dissected off the liver using L-hook cautery. There was no bleeding or bile leaking noted from the gallbladder fossa and the clips appeared to be in place. An EndoCatch bag was introduced to remove the gallbladder. All the ports were removed under direct visualization and there was no bleeding noted from the port sites. The fascia of the umbilicus was closed using [id number] 0 Vicryl sutures and the subcutaneous tissue was approximated using 3-0 Vicryl sutures. The skin at all four ports were closed using 4-0 Monocryl and Dermabond. A total of 10 millimeters of 0.5% Marcaine was infiltrated around the port sites. The patient was stable throughout the procedure.
[2021-05-14] MEDS: ondansetron 2 mg/ML SDV 2 mL 4 MG IVP (10:33)
[2021-05-14] MEDS: HYDROcodone-acetaminophen 5-325 mg Tablet 1 TAB PO (11:20)
--- NOTE | 2021-05-14 14:01 | ANE.PACU2 ---
Inpatient post-anesthesia follow up: Airway intact: Yes Vital signs: Temperature 97.2 F Pulse Rate 76 Respiratory Rate 18 Blood Pressure 137/70 Pulse Oximetry 93 Oxygen Delivery Me thod Room Air Oxygen Flow Rate 2 Fraction of Inspir ed Oxygen Hydration adequate: Yes Nausea and vomiting: No Pain level: 1 Mental status: Baseline
== END 2021-05-14 11:42 | disposition home or self-care (01) ==
PROVIDERS: PCP Family Medicine; Visit Provider Surgery
PROC: 0FT44ZZ Resection of Gallbladder, Percutaneous Endoscopic Approach (ICD-10-PCS; CPT 47562; principal; 2021-05-14 09:15)
DX: K81.1 Chronic cholecystitis (principal); J44.9 Chronic obstructive pulmonary disease, unspecified; I10 Essential (primary) hypertension; K21.9 Gastro-esophageal reflux disease without esophagitis; E11.9 Type 2 diabetes mellitus without complications; E66.01 Morbid (severe) obesity due to excess calories; Z68.32 Body mass index [BMI] 32.0-32.9, adult; F41.9 Anxiety disorder, unspecified; F32.9 Major depressive disorder, single episode, unspecified; E03.9 Hypothyroidism, unspecified; F17.210 Nicotine dependence, cigarettes, uncomplicated
CPT/HCPCS: 47562; 36416; 82962; 88304; 96365; J1956; J2405; J2704; J2710; J3010; J3490; J7030

== ENCOUNTER → 2021-05-28 12:54 | Outpatient (BNVA) | payer OTHER, SELFPAY | PROVIDERS: PCP Family Medicine; Visit Provider Social Worker | DX: F41.9 Anxiety disorder, unspecified (principal); F32.9 Major depressive disorder, single episode, unspecified | CPT/HCPCS: 90834 ==

== ENCOUNTER → 2021-06-11 09:49 | Outpatient (BNVA) | payer OTHER, SELFPAY | PROVIDERS: PCP Family Medicine; Visit Provider Social Worker | DX: F41.9 Anxiety disorder, unspecified (principal); F32.9 Major depressive disorder, single episode, unspecified | CPT/HCPCS: 90834 ==

== ENCOUNTER → 2021-06-18 12:53 | Outpatient (BNVA) | payer OTHER, SELFPAY | PROVIDERS: PCP Family Medicine; Visit Provider Social Worker | DX: F33.1 Major depressive disorder, recurrent, moderate (principal); F41.9 Anxiety disorder, unspecified | CPT/HCPCS: 90834 ==

== ENCOUNTER → 2021-07-02 12:51 | Outpatient (BNVA) | payer OTHER, SELFPAY | PROVIDERS: PCP Family Medicine; Visit Provider Social Worker | DX: F41.9 Anxiety disorder, unspecified (principal) | CPT/HCPCS: 90834 ==

== ENCOUNTER → 2021-07-10 08:37 | Outpatient (BNVA) | payer OTHER, SELFPAY | PROVIDERS: PCP Family Medicine; Visit Provider Family Medicine | DX: E78.5 Hyperlipidemia, unspecified (principal); E11.9 Type 2 diabetes mellitus without complications; M54.2 Cervicalgia; G89.29 Other chronic pain; I10 Essential (primary) hypertension; R11.0 Nausea; F17.219 Nicotine dependence, cigarettes, with unspecified nicotine-induced disorders | CPT/HCPCS: 80053; 80061; 83036 ==

== ENCOUNTER 2021-07-16 06:00 | Outpatient (RCR) | payer MEDICAID, SELFPAY | END 2021-07-29 23:59 | disposition home or self-care (01) | LOC: SPT 06:00 | PROVIDERS: Family Provider Family Medicine; PCP Family Medicine; Visit Provider Family Medicine | DX: M54.2 Cervicalgia (principal); G89.29 Other chronic pain | CPT/HCPCS: 97110; 97140; 97161 ==

== ENCOUNTER → 2021-07-23 10:55 | Outpatient (BNVA) | payer OTHER, SELFPAY | PROVIDERS: PCP Family Medicine; Visit Provider Social Worker | DX: F41.9 Anxiety disorder, unspecified (principal); F32.9 Major depressive disorder, single episode, unspecified | CPT/HCPCS: 90834 ==

== ENCOUNTER 2021-07-30 06:00 | Outpatient (RCR) | payer MEDICAID, SELFPAY | END 2021-08-28 23:59 | disposition home or self-care (01) | LOC: SPT 06:00 | PROVIDERS: PCP Family Medicine; Visit Provider Family Medicine | DX: M54.2 Cervicalgia (principal); G89.29 Other chronic pain | CPT/HCPCS: 97032; 97110; 97140 ==

== ENCOUNTER → 2021-08-13 10:58 | Outpatient (BNVA) | payer OTHER, SELFPAY | PROVIDERS: Family Provider Family Medicine; PCP Family Medicine; Visit Provider Social Worker | DX: F41.9 Anxiety disorder, unspecified (principal); F32.9 Major depressive disorder, single episode, unspecified | CPT/HCPCS: 90834 ==

== ENCOUNTER 2021-08-24 14:17 | Emergency (ER) | payer MEDICAID, SELFPAY ==
[2021-08-24 14:35] VITALS: BP 105/70; PULSE 70; RESP 16; TEMP 36.5; O2SAT 96; BMI 29.2
--- NOTE | 2021-08-24 14:39 | ED_ITS ---
HPI - Back Pain/Injury General: Chief Complaint: Back Pain/Injury Stated Complaint: lower back pain Time Seen by Provider: 08/24/21 14:39 Source: patient Mode of arrival: ambulatory Limitations: no limitations History of Present Illness: HPI Narrative: 51-year-old female presents to the ER today for new onset back pain x24 hours. Patient reports she was at a nephew's birthday green party yesterday sitting on a couch and went to bend over and twist and had a sudden sharp knifelike pain in her low back. She was unable to move at that point and since then the pain has continued. Patient reports movement makes the pain worse in any direction. Patient reports some tingling in her legs bilaterally but denies any numbness or weakness. Patient reports a history of some sciatic pain but this feels much different. Patient denies any loss of bowel or bladder control but reports no bowel movement today. Patient did take hydrocodone this morning that she was prescribed for an abdominal surgery recently and also tizanidine and Aleve. Patient reports she took this about 10 AM this morning and has had no relief. Patient denies headache, fever, chills, chest pain, shortness of breath, nausea, vomiting, diarrhea, constipation. MD elicited complaint: back pain Onset (ago): day(s) (1) Timing: constant Severity: severe Pain scale (0-10): 10 Similar Symptoms Previously: No Quality: sharp and stabbing Location: lumbar spine Radiation: none Exacerbating factors: movement Relieving factors: none Context: bending Associated symptoms: Reports no associated symptoms; Deny abdominal pain, chills, fatigue, fever(s), nausea or vomiting Treatments prior to arrival: NSAIDS and prescription analgesics Review of Systems Const: Denies: fever(s), chills or fatigue ENMT: Denies: throat pain, nasal discharge or nasal congestion Card: Denies: chest pain or palpitations Resp: Denies: dyspnea, productive cough or wheezing GI: Denies: abdominal pain, nausea, vomiting, diarrhea or constipation : Denies: flank pain or difficulty voiding Musc: Reports: back pain and limited range of motion Skin/Breast: Denies: rash Neuro: Denies: headache(s) PFSH ED PFSH: Medical History Anxiety and depression Chronic left hip pain Gastroesophageal reflux Hypothyroidism Psychiatric care Type 2 diabetes mellitus, without long-term current use of insulin Surgical History H/O carpal tunnel repair H/O tubal ligation H/O: hysterectomy History of appendectomy History of tonsillectomy and adenoidectomy Status post colonoscopy (04/23/20) Repeat in 10 years Status post laparoscopic cholecystectomy (05/14/21) Family History Father Lung disease Other Atrial fibrillation CAD (coronary artery disease) COPD (chronic obstructive pulmonary disease) Cancer Stroke Social History Smoking and tobacco status: light tobacco smoker cigarettes Packs smoked per day: 1 Alcohol intake: never Household members: family Housing: House Physical Exam Const: COMMON NORMALS: average body habitus and patient oriented x3; apparent distress (appears uncomfortable) GENERAL APPEARANCE: cooperative and well kempt; not comfortable Neck/C-Spine: COMMON NORMALS: full ROM Resp: COMMON NORMALS: normal respiratory effort, No retractions and clear to auscultation bilaterally EFFORT & INSPECTION: Yes able to speak in complete sentences AUSCULTATION: clear to auscultation bilaterally Cardio: COMMON NORMALS: regular rate, regular rhythm and No murmurs present (Cardio) RATE: regular rate RHYTHM: regular rhythm GI: COMMON NORMALS: Normal to inspection, nondistended, normoactive bowel sounds present, Soft to palpation and non-tender PALPATION: Yes Soft to palpation : COMMON NORMALS: Yes no CVA tenderness BLADDER/KIDNEY EXAM: Yes no CVA tenderness Back/Pelvis: COMMON NORMALS: no CVA tenderness THORACIC SPINE/UPPER BACK: Yes normal to inspection LUMBAR SPINE/LOWER BACK: Yes normal to inspection, Yes ROM limited, Yes pain with ROM, Yes lumbar spinal tenderness Lumbar spinal tenderness location: L3, No paraspinal muscle tenderness and Yes bend over test abnormal Extremity: COMMON NORMALS: normal to inspection Neuro: COMMON NORMALS: patient oriented x3 and moves all extremities Psych: COMMON NORMALS: mental status grossly normal and Normal thought process present APPEARANCE: Yes well kempt THOUGHT PROCESS: Normal thought process present Skin: COMMON NORMALS: no rashes or lesions noted GENERAL SKIN EXAM: no rashes or lesions noted Course ED course: 51-year-old female presents to the ER today for new onset back pain x24 hours after an injury yesterday. Patient was bent over and felt a stabbing pain in her low back. She has had continued severe pain. No neuro deficits or sign of nerve injuries. Will get L-spine x-ray. Patient has had hydrocodone, tizanidine and Aleve today. We will go ahead and do some Norflex and anti- inflammatory at this time as it has been 6+ hours since patient last had anything. Reevaluation(s): Reevaluation #1: Patient reports pain has significantly improved at this time. Is the first time she has been comfortable in about the last 24 hours. Time: 16:36 Vital Signs: Vital signs: Vital Signs Temperature 97.7 F 08/24/21 14:35 Pulse Rate 70 08/24/21 14:35 Respiratory Rate 16 08/24/21 14:35 Blood Pressure 105/70 08/24/21 14:35 Pulse Oximetry 96 08/24/21 14:35 MDM - Back Pain/Injury MDM Narrative: Medical decision making narrative: 51-year-old female presents to the ER today for new onset acute low back pain that started yesterday after bending over. Patient denies any prior back issues. She has tried home medications with no relief. Patient given Kenalog, Norflex, and Toradol in ER today. After about 2 hours she reports significant improvement in the pain in the first time she has been able to get comfortable in the last 24 hours. We will switch patient from tizanidine which she has been taking at home to cyclobenzaprine. We will do Toradol as an anti-inflammatory. Patient should continue all other home medications as previously prescribed. If no improvement in 5 to 7 days, follow-up with PCP to discuss further imaging. Patient has no neurological deficits or indications of any herniations. Likely this is a bulging disc versus lumbar strain. Return to the ER with any new or worsening symptoms. Critical Care Time Critical Care Time: Critical Care Time: No Discharge Plan Discharge Patient Disposition: Home Clinical Impression: Lumbar strain Qualifiers: Encounter type: initial encounter Qualified Code(s): S39.012A - Strain of muscle, fascia and tendon of lower back, initial encounter Condition: Stable Prescriptions: New cyclobenzaprine 10 mg tablet 10 mg PO TID PRN (Reason: muscle spasm) 10 Days Qty: 30 RF: 0 ketorolac 10 mg tablet 10 mg PO Q8H PRN (Reason: pain) 3 Days RF: 0 Held tizanidine 4 mg tablet 4 mg PO TID PRN (Reason: muscle spasticity) Qty: 90 RF: 0 Hold Instructions: Resume on 09/06/21. Try cyclobenzaprine. Do not take together No Action valacyclovir [Valtrex] 1 gram tablet 1,000 mg PO DAILY PRN (Reason: prn) RF: 0 ondansetron HCl [Zofran] 4 mg tablet 4 mg PO Q8H PRN (Reason: nausea and vomiting) Qty: 30 RF: 0 albuterol sulfate [ProAir HFA] 90 mcg/actuation HFA aerosol inhaler 2 puff INHALATION Q6H PRN (Reason: Shortness Of Breath) Qty: 8.5 RF: 3 fluticasone propionate [Flonase Allergy Relief] 50 mcg/actuation spray,suspension 2 spray INTRANASAL BID Qty: 18.2 RF: 4 lisinopril 5 mg tablet 5 mg PO DAILY Qty: 30 RF: 5 Invokana 100 mg tablet 100 mg PO QAM Qty: 30 RF: 1 pantoprazole 40 mg tablet,delayed release (DR/EC) 40 mg PO DAILY Qty: 90 RF: 1 Januvia 100 mg tablet 100 mg PO DAILY Qty: 30 RF: 2 ezetimibe [Zetia] 10 mg tablet 10 mg PO .AT BEDTIME Qty: 90 RF: 0 trazodone 100 mg tablet 200 mg PO .at bedtime Qty: 60 RF: 1 citalopram 40 mg tablet 40 mg PO DAILY Qty: 90 RF: 0 Zofran 4 mg tablet 4 mg PO Q6H PRN (Reason: nausea and vomiting) Qty: 20 RF: 0 Discharge Orders: Discharge ED (Routine); Ordered 08/24/21 Ordered By: Lucy Miranda Discharge Diet: Advance as tolerated Discharge Activity: Increase activity as tolerated Patient Instructions: Opioid Safety Activity Restrictions/Additional Instructions: Take cyclobenzaprine instead of tizanidine to see if you get more relief. Take Toradol as prescribed. Continue all other home medications as previously prescribed. Conservative treatment recommended. Warm heat alternating with ice. Topical muscle rub, but do not use with ice or heat. Rest recommended. If no improvement in 5 to 7 days follow-up with PCP. Return to the ER with any new or worsening symptoms. Coding Level of Care Code ED Departmental Secretary for Steven Bernal Exam Comprehensive
--- NOTE | 2021-08-24 14:49 | XRR_ITS ---
PROCEDURE INFORMATION: Exam: XR Lumbosacral Spine Exam date and time: 08/24/2021 2:49 PM Age: 51 years old Clinical indication: Low back pain; Additional info: New onset back pain TECHNIQUE: Imaging protocol: XR of the lumbosacral spine. Views: 2 or 3 views. COMPARISON: CT abdomen pelvis wo con [id number] 04/25/2020 3:08 PM FINDINGS: Bones/joints: Vertebral body height is maintained. No subluxation. Stable degenerative changes in the spine. No acute fracture. Soft tissues: No paravertebral soft tissue abnormality. No radiopaque foreign body. Intraperitoneal space: Surgical clips in the right upper quadrant, consistent with a previous cholecystectomy. Vasculature: Atherosclerotic changes in the visualized arteries. XR/XR lumbar spine 2-3V* [id number] IMPRESSION: 1. No acute fracture of the lumbar spine. CT scan would be recommended if there is continuing clinical concern for fracture. 2. Stable degenerative changes in the spine. 3. Incidental/nonacute findings are listed in the report.
[2021-08-24] MEDS: orphenadrine 30 mg/mL Inj 2 mL 60 MG IM (15:12)
[2021-08-24] MEDS: ketorolac 30 mg/mL INJ IM (15:12)
[2021-08-24] MEDS: triamcinolone 40 mg/mL SDV 80 MG IM (16:55)
== END 2021-08-24 17:09 | disposition home or self-care (01) ==
PROVIDERS: Emergency Provider Physician Assistant
DX: S39.012A Strain of muscle, fascia and tendon of lower back, initial encounter (principal); E11.9 Type 2 diabetes mellitus without complications; F17.210 Nicotine dependence, cigarettes, uncomplicated; X50.1XXA Overexertion from prolonged static or awkward postures, initial encounter
CPT/HCPCS: 72100; 96372; 99283; J1885; J2360; J3301

== ENCOUNTER → 2021-09-04 14:22 | Outpatient (BNVA) | payer OTHER, MEDICAID, SELFPAY | PROVIDERS: PCP Family Medicine; Visit Provider Social Worker | DX: F41.9 Anxiety disorder, unspecified (principal); F32.9 Major depressive disorder, single episode, unspecified | CPT/HCPCS: 90834 ==

== ENCOUNTER → 2021-09-24 11:21 | Outpatient (BNVA) | payer OTHER, MEDICAID, SELFPAY | PROVIDERS: PCP Family Medicine; Visit Provider Social Worker | DX: F41.9 Anxiety disorder, unspecified (principal); F32.9 Major depressive disorder, single episode, unspecified | CPT/HCPCS: 90834 ==

== ENCOUNTER → 2021-10-08 12:27 | Outpatient (BNVA) | payer OTHER, MEDICAID, SELFPAY | PROVIDERS: PCP Family Medicine; Visit Provider Social Worker | DX: F41.9 Anxiety disorder, unspecified (principal); F32.9 Major depressive disorder, single episode, unspecified | CPT/HCPCS: 90837; 90834 ==

== ENCOUNTER 2021-10-13 16:51 | Emergency (ER) | payer MEDICAID, SELFPAY ==
[2021-10-13 17:23] VITALS: BP 113/70; PULSE 82; RESP 16; TEMP 36.4; O2SAT 96; BMI 28.5
--- NOTE | 2021-10-13 17:32 | ED_ITS ---
HPI - Animal Bite General: Chief Complaint: Animal Bite Stated Complaint: HAND & FINGER LAC Time Seen by Provider: 10/13/21 17:31 History of Present Illness: HPI narrative: Patient was trying to separate her dog and another dog from fighting. Patient ended up having her middle finger lacerated by the dogs fighting. Patient reports animals vaccinations were both up-to-date. Patient cannot recall her last tetanus vaccine. Patient appears well. Patient appears in no acute distress. Bleeding is controlled with pressure. Patient has normal range of motion of the hand. Review of Systems General: Reports: 10 or more systems reviewed and unremarkable except in HPI and below Skin/Breast: Reports: other (Dog bite right hand) PFS ED PFSH: Medical History Anxiety and depression Chronic left hip pain Gastroesophageal reflux Hypothyroidism Psychiatric care Type 2 diabetes mellitus, without long-term current use of insulin Surgical History H/O carpal tunnel repair H/O tubal ligation H/O: hysterectomy History of appendectomy History of tonsillectomy and adenoidectomy Status post colonoscopy (04/23/20) Repeat in 10 years Status post laparoscopic cholecystectomy (05/14/21) Family History Father Lung disease Other Atrial fibrillation CAD (coronary artery disease) COPD (chronic obstructive pulmonary disease) Cancer Stroke Social History Smoking and tobacco status: current every day smoker cigarettes Packs smoked per day: 1 Alcohol intake: never Household members: family Housing: House Physical Exam Const: COMMON NORMALS: no acute distress and patient oriented x3 GENERAL APPEARANCE: cooperative HENMT: COMMON NORMALS: normocephalic and Normal external nose present HEAD & SCALP: normal to inspection and normocephalic NOSE: Normal external nose present MOUTH: Normal oral and palatal mucosa present Eye: GENERAL EYE: appearance normal, both eyes and all related structures Neck/C-Spine: COMMON NORMALS: full ROM Chest: COMMONS NORMALS: normal inspection of the chest Resp: COMMON NORMALS: normal respiratory effort EFFORT & INSPECTION: Yes able to speak in complete sentences Cardio: COMMON NORMALS: regular rate and regular rhythm RATE: regular rate RHYTHM: regular rhythm GI: COMMON NORMALS: non-tender Back/Pelvis: COMMON NORMALS: thoracic and lumbar spine normal to inspection Extremity: NARRATIVE EXTREMITY EXAM: Irregular laceration to the ventral aspect of the middle finger on the right hand. Patient has normal tendon function. Distal cap refill. Patient does report some paresthesia distally. Neuro: COMMON NORMALS: patient oriented x3 and moves all extremities Psych: COMMON NORMALS: mental status grossly normal and cooperative Skin: COMMON NORMALS: no rashes or lesions noted GENERAL SKIN EXAM: no rashes or lesions noted Procedures Laceration Laceration 1: Site: hand Side (If applicable): right Size (cm): 2 Description: irregular Depth: simple, single layer Local Anesthetic: lidocaine 2% and with epi Amount of anesthesia used (mL): 2 Pre-repair: wound explored and irrigated extensively Skin layer closed with: nylon Size (cm): 5-0 Number of sutures: 4 Technique: simple, interrupted Course Vital Signs: Vital signs: Vital Signs Temperature 97.5 F L 10/13/21 17:23 Pulse Rate 82 10/13/21 17:23 Respiratory Rate 16 10/13/21 17:23 Blood Pressure 113/70 10/13/21 17:23 Pulse Oximetry 96 10/13/21 17:23 MDM - Animal Bite MDM Narrative: Medical decision making narrative: Patient comes in today for complaints of injury to the right hand when she was her dogs who were fighting. One of the dogs was the neighbors dog and her own dog. On exam patient has lacerations to the ventral side of the right middle finger. Patient also has some abrasions to the fourth digit with one puncture wound and a abrasions to the third finger on the dorsal side. Patient has normal range of motion of the digits. Differential diagnosis includes but not limited to fracture, need for prophylaxis tetanus, need for prophylaxis rabies, prophylactic antibiotics, and lacerations. X-ray of the hand indicated no fractures. Wounds were cleaned and approximated with sutures. Puncture wounds were left open. Patient was given a dose of clindamycin for antibiotic prophylaxis. Tetanus was updated. Patient was given a hydrocodone tablet for pain. Review of the record indicated no recent narcotic prescriptions. 7 tablets were prescribed of hydrocodone 5 with 325 of acetaminophen for home use for pain control. Patient was recommended to have sutures out in 7 days and monitor for worsening signs and symptoms. Patient reported understanding. Discharge Plan Discharge Patient Disposition: Home Clinical Impression: Dog bite Qualifiers: Encounter type: initial encounter Qualified Code(s): W54.0XXA - Bitten by dog, initial encounter Finger laceration Qualifiers: Encounter type: initial encounter Finger: middle finger Damage to nail status: without damage Foreign body presence: without foreign body Laterality: right Qualified Code(s): S61.212A - Laceration without foreign body of right middle finger without damage to nail, initial encounter Condition: Stable Prescriptions: New hydrocodone-acetaminophen 5-325 mg tablet 1 tab PO Q6H PRN (Reason: pain) Qty: 7 RF: 0 clindamycin HCl 150 mg capsule 150 mg PO Q8H 7 Days Qty: 21 RF: 0 No Action valacyclovir [Valtrex] 1 gram tablet 1,000 mg PO DAILY PRN (Reason: prn) RF: 0 naproxen sodium [Aleve] 220 mg tablet 220 mg PO BID PRNRF: 0 lorazepam 0.5 mg tablet 0.5 mg PO DAILY PRN (Reason: anxiety) Qty: 20 RF: 0 albuterol sulfate [ProAir HFA] 90 mcg/actuation HFA aerosol inhaler 2 puff INHALATION Q6H PRN (Reason: Shortness Of Breath) Qty: 8.5 RF: 3 fluticasone propionate [Flonase Allergy Relief] 50 mcg/actuation spray,suspension 2 spray INTRANASAL BID Qty: 18.2 RF: 4 pantoprazole 40 mg tablet,delayed release (DR/EC) 40 mg PO DAILY Qty: 90 RF: 1 trazodone 100 mg tablet 200 mg PO .at bedtime Qty: 60 RF: 1 citalopram 40 mg tablet 40 mg PO DAILY Qty: 90 RF: 0 tizanidine 4 mg tablet 4 mg PO TID PRN (Reason: muscle spasticity) Qty: 90 RF: 0 Hold Instructions: Resume on 09/06/21. Try cyclobenzaprine. Do not take together Invokana 100 mg tablet 100 mg PO QAM Qty: 90 RF: 0 lisinopril 5 mg tablet 5 mg PO DAILY Qty: 90 RF: 1 Januvia 100 mg tablet 100 mg PO DAILY Qty: 90 RF: 1 ezetimibe [Zetia] 10 mg tablet 10 mg PO .AT BEDTIME Qty: 90 RF: 1 Zofran 4 mg tablet 4 mg PO Q6H PRN (Reason: nausea and vomiting) Qty: 20 RF: 0 Discharge Orders: Discharge ED (Routine); Ordered 10/13/21 Ordered By: Antelmo Castle Referrals: Carine Booth DO [Primary Care Provider] - Discharge Diet: Usual diet Discharge Activity: Increase activity as tolerated Patient Instructions: Finger Laceration (ED), Opioid Safety Activity Restrictions/Additional Instructions: Keep wounds clean and dry. It is important for next 2 days to keep the wound as dry as possible. After that you can wash it gently with some mild soap and water dry thoroughly and recover. Sutures need to come out in 7 days. Monitor for signs of infection as increased redness, swelling, purulent drainage, or fever. Take prophylactic antibiotic as directed. Drink plenty of water with medication. Follow-up with primary care for further instruction. Coding Level of Care Code ED Circuit Board Inspector for Steven Fwd Exam Comprehensive
--- NOTE | 2021-10-13 17:39 | XRR_ITS ---
PROCEDURE INFORMATION: Exam: XR Right Hand Exam date and time: 10/13/2021 5:39 PM Age: 51 years old Clinical indication: Injury or trauma; Other: Dog bite; Laceration; Injury date: 10/13/2021; Injury details: Pit bull bite to right hand TECHNIQUE: Imaging protocol: XR Right hand. Views: 3 or more views. COMPARISON: No relevant prior studies available. FINDINGS: Bones/joints: Normal. Soft tissues: Normal. XR/XR hand RT min 3V* [id number] IMPRESSION: No acute findings. Radiation Dose CTDIVOL = (mGy): DLP = (mGy-cm)
[2021-10-13] MEDS: tetanus-dipt-pertussis 0.5 mL SDV IM (18:04)
[2021-10-13] MEDS: HYDROcodone-acetaminophen 5-325 mg Tablet 1 TAB PO (18:07)
[2021-10-13] MEDS: clindamycin 150 mg Capsule 300 MG PO (18:07)
[2021-10-13 19:06] VITALS: BP 119/66; PULSE 67; RESP 16; O2SAT 96
== END 2021-10-13 19:58 | disposition home or self-care (01) ==
PROVIDERS: Emergency Provider Nurse Practitioner Family; PCP Family Medicine
DX: S61.252A Open bite of right middle finger without damage to nail, initial encounter (principal); W54.0XXA Bitten by dog, initial encounter; E11.9 Type 2 diabetes mellitus without complications; F17.210 Nicotine dependence, cigarettes, uncomplicated; Z23 Encounter for immunization
CPT/HCPCS: 12001; 73130; 80048; 83036; 90471; 90715; 99283

== ENCOUNTER 2021-11-21 11:11 | Emergency (ER) | payer MEDICAID, SELFPAY ==
[2021-11-21 11:28] VITALS: BP 209/97; PULSE 72; RESP 16; TEMP 36.7; O2SAT 97
--- NOTE | 2021-11-21 11:37 | XR_ITS ---
WS: [id number] PORTABLE CHEST HISTORY: dyspnea/cough COMPARISON: 04/25/2020 Mild pulmonary hyperexpansion. No pneumonia. Normal vasculature. No pleural effusion or pneumothorax. Cardiac size: Normal. Mediastinum/Aorta: Normal mediastinum. No osseous abnormality seen. XR/XR chest 1V portable [id number] IMPRESSION: Unremarkable portable chest.
--- NOTE | 2021-11-21 11:51 | W.ED.ABDPA2 ---
HPI - Abdominal Pain General: Chief Complaint: Abdominal Pain Stated Complaint: n/v feve, chills for t-3 days Time Seen by Provider: 11/21/21 11:34 History of Present Illness: HPI narrative: 51-year-old female who presents to the emergency room with complaining of 2 days of abdominal pain.She has had some nausea vomiting she denies any diarrhea she has continued to have regular bowel movements. She denies fever sweats chills dysuria urgency frequency she has a lot of epigastric discomfort. She has previously had cholecystectomy and appendectomy. MD elicited complaint: abdominal pain Pertinent past history: none Onset (ago): day(s) Pain Consistency: constant Location: Epigastric Severity: severe Quality: cramping and stabbing Radiation: none Migration to: no migration Exacerbating factors: eating and vomiting Relieving factors: nothing Associated Symptoms: Reports anorexia, bloating, nausea, poor appetite and vomiting; Denies belching, change in bowel habits, change in stool character, chills, coffee ground emesis, constipation, GI cramping, diarrhea, dyspepsia, dysuria, excessive flatus, fever(s), heartburn, hematochezia, hematuria, hematemesis, fecal incontinence, loose stools, melena and syncope Review of Systems Const: Denies: fever(s) or chills ENMT: Denies: throat pain, ear or mastoid pain, nasal discharge or nasal congestion Card: Denies: syncope Resp: Denies: dyspnea, productive cough or non-productive cough GI: Reports: nausea, vomiting and bloating; Denies: hematemesis, coffee ground emesis, heartburn, diarrhea, constipation, GI cramping, belching, excessive flatus, fecal incontinence, change in bowel habits, change in stool character, hematochezia or melena : Denies: dysuria or hematuria Skin/Breast: Denies: rash or pruritus PFSH ED PFSH: Medical History Anxiety and depression Chronic left hip pain Gastroesophageal reflux Hypothyroidism Psychiatric care Type 2 diabetes mellitus, without long-term current use of insulin Surgical History H/O carpal tunnel repair H/O tubal ligation H/O: hysterectomy History of appendectomy History of tonsillectomy and adenoidectomy Status post colonoscopy (04/23/20) Repeat in 10 years Status post laparoscopic cholecystectomy (05/14/21) Family History Father Lung disease Other Atrial fibrillation CAD (coronary artery disease) COPD (chronic obstructive pulmonary disease) Cancer Stroke Social History Smoking and tobacco status: never smoked Alcohol intake: never Household members: family Housing: House Physical Exam Const: GENERAL APPEARANCE: cooperative ORIENTATION/CONSCIOUSNESS: Yes awake, Yes oriented to person, Yes oriented to place and Yes oriented to time HENMT: COMMON NORMALS: normocephalic, atraumatic and hearing grossly normal bilaterally HEAD & SCALP: normocephalic and atraumatic Neck/C-Spine: COMMON NORMALS: no JVD Resp: COMMON NORMALS: normal respiratory effort, No retractions, No use of accessory muscles and clear to auscultation bilaterally AUSCULTATION: clear to auscultation bilaterally Cardio: COMMON NORMALS: no JVD, regular rate, regular rhythm and No murmurs present (Cardio) RATE: regular rate RHYTHM: regular rhythm GI: COMMON NORMALS: No hepatosplenomegaly present AUSCULTATION: Yes Hypoactive bowel sounds present PALPATION: Yes Tenderness to palpation present (GI) (Mild epigastric), No Guarding due to palpation present (GI) and Yes No hepatosplenomegaly present Extremity: COMMON NORMALS: normal to inspection, capillary refill normal, no clubbing, cyanosis or edema, no calf tenderness and no pedal edema Neuro: SENSORIUM/ORIENTATION: Yes oriented to person, Yes oriented to place and Yes oriented to time Skin: COMMON NORMALS: no rashes or lesions noted GENERAL SKIN EXAM: no rashes or lesions noted Course Vital Signs: Vital signs: Vital Signs Temperature 98.1 F 11/21/21 11:28 Pulse Rate 108 H 11/21/21 18:37 Respiratory Rate 18 11/21/21 18:37 Blood Pressure 161/107 11/21/21 18:37 Pulse Oximetry 95 11/21/21 18:37 MDM - Abdominal Pain MDM Narrative: Medical decision making narrative: Patient states she has been smoking marijuana almost daily for 40 years. Nausea vomiting has improved. Discharge home with Ativan 2 mg 1 p.o. every 8 hours as needed for nausea. Encourage patient abstinence from marijuana. If has any worsening or change symptoms return. Symptoms improved after IV fluids and medications. Lab Data: Labs: Lab Results 11/21/21 11/21/21 11/21/21 12:37 12:37 12:37 WBC 12.2 10^3/uL H 10 ^3/uL (4.0-10.0) RBC 5.66 10^6/uL H 10 ^6/uL (4.1-5.3) Hgb 17.1 g/dL H g/dL (11.5-15.3) Hct 49.5 % H % (37.0-47.0) MCV 87.5 fl fl (81-99) MCH 30.2 pg pg (28.0-34.0) MCHC 34.5 g/dL g/dL (30.0-36.0) RDW 11.9 % L % (12.1-15.1) Plt Count 248 10^3/cmm 10^3 /cmm (130-400) MPV 9.0 fL fL (7.4-10.4) Neut % (Auto) 71.2 % % Lymph % (Auto) 21.4 % % [place] % (Auto) 6.5 % % Eos % (Auto) 0.2 % % Baso % (Auto) 0.4 % % Neut # (Auto) 8.70 10^3/uL H 10 ^3/uL (1.8-7.7) Lymph # (Auto) 2.6 10^3/uL 10^3/ uL (0.8-4.8) [place] # (Auto) 0.8 10^3/uL 10^3/ uL (0.2-0.9) Eos # (Auto) 0.0 10^3/uL 10^3/ uL (0.0-0.8) Baso # (Auto) 0.1 10^3/uL 10^3/ uL (0.0-0.1) Nucleated RBC % (a uto) 0 % % Nucleated RBCs # 0.0 /100WBC /100W BC Sodium 135 mmol/L L mmol /L (136-145) Potassium 3.5 mmol/L mmol/L (3.5-5.1) Chloride 95 mmol/L L mmol/ L (98-107) Carbon Dioxide 19 mmol/L L mmol/ L (22-29) Anion Gap 24.5 H (5-19) BUN 16 mg/dL mg/dL (6-20) Creatinine 0.8 mg/dL mg/dL (0.5-0.9) GFR Calculation 75.0 mL/min L mL/ min (90-130) Glucose 164 mg/dL H mg/dL (65-115) Calculated Osmolal ity 285 mOsm/kg mOsm/ kg (285-295) Lactic Acid 1.8 mmol/L mmol/L (0.5-2.2) Calcium 9.1 mg/dL mg/dL (8.5-10.5) Magnesium 1.6 mg/dL L mg/dL (1.7-2.3) Total Bilirubin 0.9 mg/dL mg/dL (0.15-1.2) AST 20 U/L U/L (0-32) ALT 25 U/L U/L (0-33) Alkaline Phosphata se 109 IU/L H IU/L (35-105) Troponin T Baselin e Troponin T 120 Min telida Delta Troponin T Total Protein 7.6 g/dL g/dL (6.6-8.7) Albumin 4.4 g/dL g/dL (3.5-5.2) Globulin 3.2 g/dL g/dL (1.3-4.6) Lipase 15 U/L U/L (13-60) Urine Color Urine Appearance Urine pH Ur Specific Gravit y Urine Protein Urine Glucose (UA) Urine Ketones Urine Blood Urine Nitrate Urine Bilirubin Urine Urobilinogen Ur Leukocyte Dejah ase Urine Opiates Scre en Ur Barbiturates Sc reen Ur Phencyclidine S crn Ur Amphetamines Sc reen U Benzodiazepines Scrn Urine Cocaine Scre en U Marijuana (THC) Screen 11/21/21 11/21/21 11/21/21 13:27 14:54 14:54 WBC RBC Hgb Hct MCV MCH MCHC RDW Plt Count MPV Neut % (Auto) Lymph % (Auto) [place] % (Auto) Eos % (Auto) Baso % (Auto) Neut # (Auto) Lymph # (Auto) [place] # (Auto) Eos # (Auto) Baso # (Auto) Nucleated RBC % (a uto) Nucleated RBCs # Sodium Potassium Chloride Carbon Dioxide Anion Gap BUN Creatinine GFR Calculation Glucose Calculated Osmolal ity Lactic Acid Calcium Magnesium Total Bilirubin AST ALT Alkaline Phosphata se Troponin T Baselin e 15 ng/L H ng/L (0-10) Troponin T 120 Min telida Delta Troponin T Total Protein Albumin Globulin Lipase Urine Color Straw (Yellow) Urine Appearance Clear (CLEAR) Urine pH 8 H (5-7) Ur Specific Gravit y 1.010 (1.005-1.030) Urine Protein Neg (Negative) Urine Glucose (UA) 4+ H (Normal) Urine Ketones 1+ H (Negative) Urine Blood Neg (Negative) Urine Nitrate Negative (Negative) Urine Bilirubin Neg (Negative) Urine Urobilinogen Norm mg/dL mg/dL (Negative) Ur Leukocyte Dejah ase Negative (Negative) Urine Opiates Scre en Positive ng/mL H ng/mL (Negative) Ur Barbiturates Sc reen Negative ng/mL ng /mL (Negative) Ur Phencyclidine S crn Negative ng/mL ng /mL (Negative) Ur Amphetamines Sc reen Negative ng/mL ng /mL (Negative) U Benzodiazepines Scrn Negative ng/mL ng /mL (Negative) Urine Cocaine Scre en Negative ng/mL ng /mL (Negative) U Marijuana (THC) Screen Positive ng/mL H ng/mL (Negative) 11/21/21 14:59 WBC RBC Hgb Hct MCV MCH MCHC RDW Plt Count MPV Neut % (Auto) Lymph % (Auto) [place] % (Auto) Eos % (Auto) Baso % (Auto) Neut # (Auto) Lymph # (Auto) [place] # (Auto) Eos # (Auto) Baso # (Auto) Nucleated RBC % (a uto) Nucleated RBCs # Sodium Potassium Chloride Carbon Dioxide Anion Gap BUN Creatinine GFR Calculation Glucose Calculated Osmolal ity Lactic Acid Calcium Magnesium Total Bilirubin AST ALT Alkaline Phosphata se Troponin T Baselin e Troponin T 120 Min telida 17.94 ng/L H ng/L (0-10) Delta Troponin T 2.94 ABS# ABS# (0-10) Total Protein Albumin Globulin Lipase Urine Color Urine Appearance Urine pH Ur Specific Gravit y Urine Protein Urine Glucose (UA) Urine Ketones Urine Blood Urine Nitrate Urine Bilirubin Urine Urobilinogen Ur Leukocyte Dejah ase Urine Opiates Scre en Ur Barbiturates Sc reen Ur Phencyclidine S crn Ur Amphetamines Sc reen U Benzodiazepines Scrn Urine Cocaine Scre en U Marijuana (THC) Screen Discharge Plan Discharge Patient Disposition: Home Clinical Impression: Cannabinoid hyperemesis syndrome Condition: Stable Prescriptions: New Ativan 2 mg tablet 2 mg PO Q8H PRN (Reason: nausea and vomiting) Qty: 7 RF: 0 No Action valacyclovir [Valtrex] 1 gram tablet 1,000 mg PO DAILY PRN (Reason: prn) RF: 0 naproxen sodium [Aleve] 220 mg tablet 220 mg PO BID PRN (Reason: Pain) RF: 0 lorazepam 0.5 mg tablet 0.5 mg PO DAILY PRN (Reason: anxiety) Qty: 20 RF: 0 albuterol sulfate [ProAir HFA] 90 mcg/actuation HFA aerosol inhaler 2 puff INHALATION Q6H PRN (Reason: Shortness Of Breath) Qty: 8.5 RF: 3 fluticasone propionate [Flonase Allergy Relief] 50 mcg/actuation spray,suspension 2 spray INTRANASAL BID Qty: 18.2 RF: 4 pantoprazole 40 mg tablet,delayed release (DR/EC) 40 mg PO DAILY Qty: 90 RF: 1 citalopram 40 mg tablet 40 mg PO DAILY Qty: 90 RF: 0 Invokana 100 mg tablet 100 mg PO QAM Qty: 90 RF: 0 lisinopril 5 mg tablet 5 mg PO DAILY Qty: 90 RF: 1 Januvia 100 mg tablet 100 mg PO DAILY Qty: 90 RF: 1 tizanidine 4 mg tablet 4 mg PO TID PRN (Reason: muscle spasticity) Qty: 90 RF: 0 Hold Instructions: Resume on 09/06/21. Try cyclobenzaprine. Do not take together Zofran 4 mg tablet 4 mg PO Q6H PRN (Reason: nausea and vomiting) Qty: 20 RF: 0 ezetimibe 10 mg tablet See Rx Instructions .ROUTE .COMPLEX Qty: 90 RF: 1 doxycycline hyclate 100 mg capsule 100 mg PO BID RF: 0 moxifloxacin 400 mg tablet 400 mg PO DAILY RF: 0 oxycodone 5 mg tablet 5 mg PO Q6H PRN (Reason: Pain) RF: 0 trazodone 100 mg tablet 200 mg PO BEDTIME RF: 0 Discharge Orders: Discharge ED (Routine); Ordered 12/24/21 Ordered By: Cristi Costello Referrals: Carine Booth DO [Primary Care Provider] - Discharge Diet: Clear Liquid Discharge Activity: Resume usual activity Patient Instructions: Opioid Safety Activity Restrictions/Additional Instructions: Clear liquid diet for 24 to 48 hours. Abstain from marijuana. Coding Level of Care Code ED Police Booking Officer for Steven Fwd Exam Comprehensive
--- NOTE | 2021-11-21 12:08 | CT_ITS ---
WS: [id number] CT ABDOMEN AND PELVIS WITH CONTRAST HISTORY: Nausea, vomiting and diarrhea for 2 days. TECHNIQUE: Imaging performed of the abdomen and pelvis with IV contrast. Single phase imaging of the abdomen. Coronal and sagittal reformats are submitted. All CT scans at [facility] use at [address] one of these dose optimization techniques: automated exposure control; mA and/or kV adjustment per patient size (includes targeted exams where dose is matched to clinical indication); or iterative re construction. IV CONTRAST: Omnipaque 300; 95 mL IV. Oral contrast: No DLP: 1347.38 mGy.cm COMPARISON: 04/25/2020 Lower thorax: Lung bases are clear. Heart is normal size. No hiatal hernia. Liver/biliary system: Normal size with no intrahepatic dilatation. Gallbladder: Status post cholecystectomy. Pancreas: Normal size pancreas and pancreatic duct. No adjacent inflammation. Spleen: Normal size spleen with granulomata. Adrenal glands: Normal. Right kidney: Normal. Left kidney: Normal. Aorta: Mild atherosclerosis with no aneurysm. Lymphadenopathy: None. Free fluid: None. GI tract: Prior appendectomy. No obstruction. No significant pericolonic edema or mucosal thickening. Abdominal wall: Unremarkable abdominal wall. No hernia. Pelvis: No free fluid or adenopathy within the pelvis. Bones: Unremarkable. CT/CT abdomen pelvis w con* [id number] IMPRESSION: 1. No acute abdominal or pelvic abnormalities. 2. Prior appendectomy and cholecystectomy. 3. No ascites or free air.
--- NOTE | 2021-11-21 12:08 | ECG_ITS ---
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 Measurements Intervals [place] Rate: 69 P: 80 [place]: 136 QRS: 41 QRSD: 90 T: 55 QT: 481 QTc: 518 Interpretive Statements SINUS RHYTHM WITH SINUS ARRHYTHMIA PROLONGED QT INTERVAL Compared to ECG 04/24/2020 20:21:52 Prolonged QT interval now present Sinus tachycardia no longer present Electronically Signed On 11-22-2021 17:09:54 YOUTH [employer]RECTIONS OFFICER by Jeannette Mcbride M.D. [email or web address]/store/[id number] f
[2021-11-21] MEDS: ondansetron 2 mg/ML SDV 2 mL 4 MG IVP (12:33)
[2021-11-21 12:35] VITALS: BP 201/113; PULSE 70; RESP 16; O2SAT 97
[2021-11-21] MEDS: iohexol 300 mg/mL 100 mL Btl IV (12:46)
[2021-11-21 12:48] LABS: Basophils # 0.1 10^3/uL (0.0-0.1); Basophils % 0.4 %; Eosinophils % 0.2 %; Hematocrit 49.5 % (37.0-47.0); Hemoglobin 17.1 g/dL (11.5-15.3); Lymphocytes # 2.6 10^3/uL (0.8-4.8); Lymphocytes % 21.4 %; Mean Corpuscular HGB Conc 34.5 g/dL (30.0-36.0); Mean Corpuscular Hemoglobin 30.2 pg (28.0-34.0); Mean Corpuscular Volume 87.5 fl (81-99); Monocytes # 0.8 10^3/uL (0.2-0.9); Monocytes % 6.5 %; Neutrophils % 71.2 %; Nucleated Red Blood Cells % 0 %; Platelet Count 248 10^3/cmm (130-400); Red Blood Count 5.66 10^6/uL (4.1-5.3); Red Cell Distribution Width 11.9 % (12.1-15.1); White Blood Count 12.2 10^3/uL (4.0-10.0)
[2021-11-21 12:52] VITALS: RESP 20; O2SAT 97
[2021-11-21] MEDS: morphine 4 mg/mL SDV 1 mL IVP (12:52)
[2021-11-21 13:05] LABS: Alanine Aminotransferase 25 U/L (0-33); Albumin Level 4.4 g/dL (3.5-5.2); Alkaline Phosphatase 109 IU/L (35-105); Blood Urea Nitrogen 16 mg/dL (6-20); Calcium 9.1 mg/dL (8.5-10.5); Carbon Dioxide 19 mmol/L (22-29); Chloride 95 mmol/L (98-107); Globulin 3.2 g/dL (1.3-4.6); Glucose 164 mg/dL (65-115); Lipase 15 U/L (13-60); Magnesium 1.6 mg/dL (1.7-2.3); Osmolality Calculated 285 mOsm/kg (285-295); Sodium 135 mmol/L (136-145); Total Bilirubin 0.9 mg/dL (0.15-1.2); Total Protein 7.6 g/dL (6.6-8.7)
[2021-11-21 13:06] LABS: Lactic Sepsis W/Reflex 1.8 mmol/L (0.5-2.2)
[2021-11-21 13:08] LABS: Anion Gap 24.5 (5-19); Aspartate Amino Transferase 20 U/L (0-32); Potassium 3.5 mmol/L (3.5-5.1)
[2021-11-21 13:33] VITALS: BP 205/105
--- NOTE | 2021-11-21 13:33 | PC.NURSE ---
notified dr. hook of bp of
[2021-11-21] MEDS: sodium chloride 0.9% 1,000 ML 999 ML IV ×2 (14:04→16:25)
[2021-11-21] MEDS: hyDRALAzine 20 mg/mL INJ 1 mL IVP (14:07)
[2021-11-21] MEDS: amlodipine 10 mg Tablet PO (14:07)
[2021-11-21] MEDS: labetalol 5 mg/mL SDV 20mL 10 MG IVP (14:10)
--- NOTE | 2021-11-21 14:10 | PC.NURSE ---
pt denies being able to provide urine specimen at this time.
--- NOTE | 2021-11-21 14:13 | PC.NURSE ---
Addendum entered by Isra Harris RN 11/21/21 14:14: 1405 time enetered room. Original Note: upon entering room pt resting quietly in bed with eyes closed supine. pt is aroused via verbal stimuli.
[2021-11-21 15:09] LABS: Add Urine Microscopic? NO; Charge for UA Resulting for Rev
[2021-11-21 15:18] LABS: Bilirubin Urine Neg (Negative); Blood Urine Neg (Negative); Glucose Urine UA 4+ (Normal); Ketones Urine 1+ (Negative); Leukocyte Esterase Urine Negative (Negative); Nitrate Urine Negative (Negative); Protein Urine Neg (Negative); Urine Appearance Clear (CLEAR); Urine Color Straw (Yellow); Urobilinogen Urine Norm (Negative); pH Urine 8 (5-7)
[2021-11-21 15:25] LABS: Amphetamines Screen Urine Negative (Negative); Barbiturates Screen Urine Negative (Negative); Benzodiazepines Screen Urine Negative (Negative); Cocaine Screen Urine Negative (Negative); Opiate Screen Urine Positive (Negative); PCP Screen Urine Negative (Negative); THC Screen Urine Positive (Negative)
[2021-11-21 15:29] LABS: Troponin 5 2HR 17.94 ng/L (0-10)
[2021-11-21 15:29] LABS: Troponin(5th) Baseline 15 ng/L (0-10)
[2021-11-21 15:32] LABS: Troponin 5 2HR Delta 2.94 ABS# (0-10)
[2021-11-21] MEDS: haloperidol inj 5 mg/mL INJ 1 mL 2.5 MG IVP (16:22)
[2021-11-21] MEDS: promethazine 25 mg/mL SDV 1 mL IM (16:23)
[2021-11-21 18:37] VITALS: BP 161/107; PULSE 108; RESP 18; O2SAT 95
== END 2021-11-21 18:39 | disposition home or self-care (01) ==
PROVIDERS: Emergency Provider Family Medicine; PCP Family Medicine
DX: R11.10 Vomiting, unspecified (principal); F12.920 Cannabis use, unspecified with intoxication, uncomplicated; E11.9 Type 2 diabetes mellitus without complications
CPT/HCPCS: 71045; 74177; 80053; 80306; 81003; 83605; 83690; 83735; 84484; 85025; 93005; 96361; 96372; 96374; 96375; 99284; J0360; J1630; J2270; J2405; J2550; J3490; J7030; Q9967

== ENCOUNTER → 2022-05-08 11:07 | Outpatient (BNVA) | payer MEDICAID, SELFPAY | PROVIDERS: PCP Family Medicine; Visit Provider Family Medicine | DX: E11.9 Type 2 diabetes mellitus without complications (principal); E78.5 Hyperlipidemia, unspecified | CPT/HCPCS: 80053; 80061; 82043; 83036 ==

== ENCOUNTER → 2022-11-12 16:07 | Outpatient (BNVA) | payer MEDICAID, SELFPAY | PROVIDERS: PCP Family Medicine; Visit Provider Family Medicine | DX: I10 Essential (primary) hypertension (principal); E11.9 Type 2 diabetes mellitus without complications; E78.5 Hyperlipidemia, unspecified; G47.00 Insomnia, unspecified; Z23 Encounter for immunization | CPT/HCPCS: 80053; 80061; 82043; 83036; 85025 ==

== ENCOUNTER 2023-01-21 14:42 | Outpatient (CLI) | payer MEDICAID, SELFPAY ==
--- NOTE | 2023-01-21 14:51 | MM_ITS ---
WS: [id number] VIEWS: MLO and CC views both breasts. 3D digital tomosynthesis is also included in this exam. Comparison made with prior exam of 07/15/2017, 10/14/2012, 10/04/2017, 10/17/2019.. Findings: There was no sign of mass, architectural distortion or suspicious calcification in either breast. Sc attered fibroglandular densities MM/[place] [id number] Impression: BI-RADS: 2-Benign FOLLOW-UP: 1 Year Follow-up This mammogram was also analyzed by the Computer Aided Detection System R2 Imag e [employer] Account Executive.
== END 2023-01-21 14:43 | disposition home or self-care (01) ==
PROVIDERS: PCP Family Medicine; Visit Provider Family Medicine
DX: Z12.31 Encounter for screening mammogram for malignant neoplasm of breast (principal)
CPT/HCPCS: 77063; 77067

== ENCOUNTER 2023-02-21 09:38 | Emergency (ER) | payer MEDICAID, SELFPAY ==
[2023-02-21] VITALS (7 sets, daily range): BP systolic 158–180; BP diastolic 104–120; PULSE 91–115; RESP 19; TEMP 36.7; O2SAT 93–98
--- NOTE | 2023-02-21 09:56 | CTR_ITS ---
PROCEDURE INFORMATION: Exam: CT Head Without Contrast Exam date and time: 02/21/2023 10:32 AM Age: 52 years old Clinical indication: Dizziness and visual disturbance; Additional info: Vomiting, vision changes, HTN TECHNIQUE: Imaging protocol: Computed tomography of the head without contrast. Radiation optimization: All CT scans at this facility use at least one of these dose optimization techniques: automated exposure control; mA and/or kV adjustment per patient size (includes targeted exams where dose is matched to clinical indication); or iterative reconstruction. REPORTING DATA: Count of CT and Cardiac NM exams in prior 12 months: This patient has received 0 known CTs and 0 known cardiac nuclear medicine studies in the 12 months prior to the current study. COMPARISON: CR XR cervical spine 3V* [id number] 02/07/2021 11:38 AM RADIATION DOSE METRICS: Total DLP (mGy-cm): 1073.48 FINDINGS: Brain: The brain is unremarkable. There is no mass effect or significant white matter disease. There is no acute intracranial hemorrhage. Cerebral ventricles: There is no significant ventricular dilation. The basal cisterns are unremarkable. Paranasal sinuses: The paranasal sinuses are clear. Mastoid air cells: The mastoid air cells are clear. Bones/joints: The calvarium is intact. 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 Soft tissues: The visible extracranial soft tissues are unremarkable. CT/CT head wo con* [id number] IMPRESSION: 1. No acute intracranial abnormality. 2. Bilateral TMJ arthritis.
[2023-02-21 10:08] LABS: Basophils # 0.1 10^3/uL (0.0-0.1); Basophils % 0.3 %; Eosinophils % 0.1 %; Hematocrit 52.6 % (37.0-47.0); Hemoglobin 17.5 g/dL (11.5-15.3); Lymphocytes # 2.9 10^3/uL (0.8-4.8); Lymphocytes % 15.7 %; Mean Corpuscular HGB Conc 33.3 g/dL (30.0-36.0); Mean Corpuscular Hemoglobin 29.1 pg (28.0-34.0); Mean Corpuscular Volume 87.5 fl (81-99); Mean Platelet Volume 10.2 fL (7.4-10.4); Monocytes # 1.1 10^3/uL (0.2-0.9); Monocytes % 6.2 %; Neutrophils % 77.3 %; Nucleated Red Blood Cells % 0 %; Platelet Count 287 10^3/cmm (130-400); Red Blood Count 6.01 10^6/uL (4.1-5.3); Red Cell Distribution Width 12.3 % (12.1-15.1); White Blood Count 18.4 10^3/uL (4.0-10.0)
[2023-02-21 10:16] LABS: Alanine Aminotransferase 13 U/L (0-33); Alkaline Phosphatase 102 U/L (35-105); Anion Gap 21.8 (5-19); Aspartate Amino Transferase 18 U/L (0-32); Blood Urea Nitrogen 18 mg/dL (6-20); Calcium 9.1 mg/dL (8.5-10.5); Carbon Dioxide 18 mmol/L (22-29); Chloride 96 mmol/L (98-107); Globulin 3.2 g/dL (1.3-4.6); Glomerular Filtration Rate 87.2 mL/min (90-130); Glucose 252 mg/dL (65-115); Lipase 16 U/L (13-60); Osmolality Calculated 284 mOsm/kg (285-295); Potassium 3.8 mmol/L (3.5-5.1); Sodium 132 mmol/L (136-145); Total Bilirubin 0.9 mg/dL (0.15-1.2); Total Protein 7.2 g/dL (6.6-8.7)
[2023-02-21] MEDS: sodium chloride 0.9% 500 ML IV (10:19)
[2023-02-21] MEDS: ondansetron 2 mg/ML SDV 2 mL 4 MG IVP (10:19)
--- NOTE | 2023-02-21 10:23 | ECG_ITS ---
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 Measurements Intervals [place] Rate: 96 P: 70 GA: 133 QRS: 32 QRSD: 85 T: 63 QT: 388 QTc: 491 Interpretive Statements SINUS RHYTHM POSSIBLE LEFT ATRIAL ENLARGEMENT [-0.1mV P-WAVE IN V1/V2] LOW QRS VOLTAGE IN PRECORDIAL LEADS [QRS DEFLECTION < 1.0 mV IN CHEST LEADS] Compared to ECG 11/21/2021 11:51:32 Low QRS voltage now present Sinus arrhythmia no longer present Prolonged QT interval no longer present Electronically Signed On 02-21-2023 22:36:24 CDT by Tony Walker M.D. [email or web address] [facility].[employer]/store/[id number]
--- NOTE | 2023-02-21 10:25 | W.ED.GENADLT ---
HPI - General Adult General: Chief complaint: General Medical Stated complaint: N/V Time Seen by Provider: 02/21/23 09:39 History of Present Illness: This patient is a 52 year old presenting with vomiting, weakness, high blood pressure, falling and vision changes. These symptoms started on Wednesday with the vomiting - and then that night she says that she checked her BP and it was 230 systolic. She says at that time, she also was having trouble seeing because her right eye was point upward and her left eye was pointing downward. She reports double vision. She says that she did not notice any localized weakness and no trouble swallowing. She says that she would have called 911 if she could have gotten to the phone, but she was too weak. She says that when she woke up in the morning her eyes were normal again. She has had a headache since Wednesday as well. She denies prior history of stroke. She is diabetic and takes lisinopril 5 mg daily - which I suspect is more for her kidneys than for BP given the low dose. Yesterday she was able to keep down some broth and pedialyte. She has not taken any medications today. She feels like she has had a fever. She denies urinary symptoms. No diarrhea. REPLACED BY [facility] PFSH: Medical History (Updated 02/21/23 @ 16:40 by Renetta Dixon MD) Anxiety and depression Chronic left hip pain Gastroesophageal reflux Hypothyroidism Insomnia Opioid withdrawal without complication Type 2 diabetes mellitus, without long-term current use of insulin Surgical History H/O carpal tunnel repair H/O tubal ligation H/O: hysterectomy History of appendectomy History of tonsillectomy and adenoidectomy Status post colonoscopy (04/23/20) Repeat in 10 years Status post laparoscopic cholecystectomy (05/14/21) Family History Father Lung disease Other Atrial fibrillation CAD (coronary artery disease) COPD (chronic obstructive pulmonary disease) Cancer Stroke Social History Smoking and tobacco status: current every day smoker cigarettes Packs smoked per day: 1 Alcohol intake: never Household members: family Housing: House Physical Exam Const: COMMON NORMALS: patient oriented x3, no limitations and alert GENERAL APPEARANCE: cooperative and other (appears uncomforatble, tremulous) HENMT: HEAD & SCALP: normal to inspection FACE & SINUS: normal facial exam Eye: GENERAL EYE: appearance normal, both eyes and all related structures VISUAL ZAMARRIPA: No peripheral vision loss EOM: No EOM abnormal Neck/C-Spine: COMMON NORMALS: supple, no meningeal signs and no JVD Chest: COMMONS NORMALS: normal inspection of the chest Resp: COMMON NORMALS: normal respiratory effort, No use of accessory muscles and clear to auscultation bilaterally AUSCULTATION: clear to auscultation bilaterally Cardio: COMMON NORMALS: no JVD, regular rate, regular rhythm and No murmurs present (Cardio) RATE: regular rate RHYTHM: regular rhythm GI: COMMON NORMALS: Normal to inspection, nondistended, normoactive bowel sounds present, Soft to palpation and non-tender INSPECTION: Yes normal to inspection AUSCULTATION: Yes normoactive bowel sounds PALPATION: Yes Soft to palpation Back/Pelvis: COMMON NORMALS: thoracic and lumbar spine normal to inspection Extremity: COMMON NORMALS: normal to inspection Neuro: COMMON NORMALS: patient oriented x3, moves all extremities, no focal motor deficits and no sensory deficits noted SENSORIUM/ORIENTATION: Yes alert MENINGEAL SIGNS: Yes no meningeal signs Psych: COMMON NORMALS: mental status grossly normal, cooperative and normal affect Skin: COMMON NORMALS: no rashes or lesions noted and turgor normal GENERAL SKIN EXAM: no rashes or lesions noted and turgor normal Course Vital Signs: Vital signs: Vital Signs Temperature 98.0 F 02/21/23 09:39 Pulse Rate 97 02/21/23 16:30 Respiratory Rate 19 H 02/21/23 09:39 Blood Pressure 176/120 02/21/23 16:30 Pulse Oximetry 98 02/21/23 16:30 Oxygen Delivery Me thod 02/21/23 10:48 MDM - General Adult Medical Decision Making N/V for three days, with headache, now resolved visual changes, generalized weakness. Hypertensive. Diabetic. Broad differential including intracranial pathology - bleed, mass, TIA, PRES. Viral syndrome possible superimposed on history of HTN. Visual changes difficult to account for and difficult to categorize from her description alone, as the exam is normal now. Consider cardic - although no chest pain. Consider DKA. Consider pancreatitis, hepatitis. She is s/p cholecystectomy. Consider pyelonephritis. Plan for IV fluids, zofran, CT head, labs. Labs will direct potential imaging of the abdomen, as well as electrolyte replacement as needed. Elevated WBC - Elevated HGB (she is a smoker, but also volume contracted). Glucose elevated, CO2 low at 18. Fluids, insulin, CT abdomen. UA still pending. UA shows large ketones. Serum hydroxybuterate ordered, but apparently that is a send out - so I eventually changed that to serum ketones which is positive. I am suspicious of euglycemic DKA as she is on canagliflozin and her symptoms and lab values suggest this. I have added an ABG and if acidotic will start insulin, D5. Abdomen remains soft and non tender. ABG does not show acidosis, pH is 7.47. She has been here before with similar looking labs and was diagnosed with cannabis hyperemesis syndrome at that time. She is tolerating fluids. Her BP remains high in spite of 2 doses of IV metoprolol. She reports that she has not been smoking marijuana in the past 10 days. She says that her BP gets high when she is sick. Tolerated fluids and jellp. WIll d/c with metoprolol for HTN and she will discuss the ongoing use of this with her PCP. She has a BP cuff at home. Also has script for zofran. Lab Data 02/21/23 09:45 02/21/23 09:[address] 02/21/23 09:56 IMPRESSION: 1. No acute intracranial abnormality. 2. Bilateral TMJ arthritis. Laboratory Results WBC 18.4 10^3/uL (4.0-10.0) H 02/21/23 09:45 RBC 6.01 10^6/uL (4.1-5.3) H 02/21/23 09:45 Hgb 17.5 g/dL (11.5-15.3) H 02/21/23 09:45 Hct 52.6 % (37.0-47.0) H 02/21/23 09:45 MCV 87.5 fl (81-99) 02/21/23 09:45 MCH 29.1 pg (28.0-34.0) 02/21/23 09:45 MCHC 33.3 g/dL (30.0-36.0) 02/21/23 09:45 RDW 12.3 % (12.1-15.1) 02/21/23 09:45 Plt Count 287 10^3/cmm (130-400) 02/21/23 09:45 MPV 10.2 fL (7.4-10.4) 02/21/23 09:45 Neut % (Auto) 77.3 % 02/21/23 09:45 Lymph % (Auto) 15.7 % 02/21/23 09:45 [place] % (Auto) 6.2 % 02/21/23 09:45 Eos % (Auto) 0.1 % 02/21/23 09:45 Baso % (Auto) 0.3 % 02/21/23 09:45 Neut # (Auto) 14.20 10^3/uL (1.8-7.7) H 02/21/23 09:45 Lymph # (Auto) 2.9 10^3/uL (0.8-4.8) 02/21/23 09:45 [place] # (Auto) 1.1 10^3/uL (0.2-0.9) H 02/21/23 09:45 Eos # (Auto) 0.0 10^3/uL (0.0-0.8) 02/21/23 09:45 Baso # (Auto) 0.1 10^3/uL (0.0-0.1) 02/21/23 09:45 Nucleated RBC % (auto) 0 % 02/21/23 09:45 Nucleated RBCs # 0.0 /100WBC 02/21/23 09:45 Specimen Type Arterial 02/21/23 14:48 Sample Site Radial, right 02/21/23 14:48 ABG pH 7.47 (7.35-7.45) H 02/21/23 14:48 ABG pCO2 34.9 mmHg (35-45) L 02/21/23 14:48 ABG pO2 62.1 mmHg (80.0-100.0) L 02/21/23 14:48 ABG HCO3 25.3 mmol/L (22-26) 02/21/23 14:48 ABG Base Excess 2.0 mmol/L (-2.0-2.0) 02/21/23 14:48 Hemanth Test Pos 02/21/23 14:48 Hematocrit 52.3 % (37-47) H 02/21/23 14:48 O2 Delivery Device Room air 02/21/23 14:48 FiO2 21.0 % 02/21/23 14:48 Control Systems Eng ID Monrous 02/21/23 14:48 Sodium 132 mmol/L (136-145) L 02/21/23 09:45 Potassium 3.8 mmol/L (3.5-5.1) 02/21/23 09:45 Chloride 96 mmol/L (98-107) L 02/21/23 09:45 Carbon Dioxide 18 mmol/L (22-29) L 02/21/23 09:45 Anion Gap 21.8 (5-19) H 02/21/23 09:45 BUN 18 mg/dL (6-20) 02/21/23 09:45 Creatinine 0.7 mg/dL (0.5-0.9) 02/21/23 09:45 GFR Calculation 87.2 mL/min (90-130) L 02/21/23 09:45 Glucose 252 mg/dL (65-115) H 02/21/23 09:45 Calculated Osmolality 284 mOsm/kg (285-295) L 02/21/23 09:45 Lactate 1.7 mmol/L (0.5-2.2) 02/21/23 10:22 Calcium 9.1 mg/dL (8.5-10.5) 02/21/23 09:45 Magnesium 2.0 mg/dL (1.7-2.3) 02/21/23 09:45 Total Bilirubin 0.9 mg/dL (0.15-1.2) 02/21/23 09:45 AST 18 U/L (0-32) 02/21/23 09:45 ALT 13 U/L (0-33) 02/21/23 09:45 Alkaline Phosphatase 102 U/L (35-105) 02/21/23 09:45 Total Protein 7.2 g/dL (6.6-8.7) 02/21/23 09:45 Albumin 4.0 g/dL (3.5-5.2) 02/21/23 09:45 Globulin 3.2 g/dL (1.3-4.6) 02/21/23 09:45 Lipase 16 U/L (13-60) 02/21/23 09:45 Beta-Hydroxybutyrate Cancelled 02/21/23 09:45 Urine Color Yellow (Yellow) 02/21/23 13:00 Urine Appearance Hazy (CLEAR) A 02/21/23 13:00 Urine pH 5 (5-7) 02/21/23 13:00 Ur Specific [place] 1.015 (1.005-1.030) 02/21/23 13:00 Urine Protein Trace (Negative) 02/21/23 13:00 Urine Glucose (UA) 4+ (Normal) H 02/21/23 13:00 Urine Ketones 3+ (Negative) H 02/21/23 13:00 Urine Blood 2+ (Negative) H 02/21/23 13:00 Urine Nitrate Negative (Negative) 02/21/23 13:00 Urine Bilirubin Neg (Negative) 02/21/23 13:00 Urine Urobilinogen Norm mg/dL (Negative) 02/21/23 13:00 Ur Leukocyte Esterase Negative (Negative) 02/21/23 13:00 Urine RBC 0-4 /hpf (0-2) H 02/21/23 13:00 Urine WBC Rare /hpf (0-5) 02/21/23 13:00 Ur Squamous Epith Cells 10-15 /hpf (0-5) H 02/21/23 13:00 Amorphous Sediment Not Reportable 02/21/23 13:00 Urine Bacteria 2+ /hpf (NONE) H 02/21/23 13:00 Serum Ketones Positive (Negative) H 02/21/23 09:45 Discharge Plan Discharge Patient Disposition: Home Clinical Impression: Vomiting, Acute dehydration, Hypertension Condition: Stable Prescriptions: New metoprolol succinate 25 mg tablet extended release 24 hr 25 mg PO DAILY Qty: 30 0RF No Action valacyclovir [Valtrex] 1 gram tablet 1,000 mg PO DAILY PRN (Reason: prn) naproxen sodium [Aleve] 220 mg tablet 220 mg PO BID PRN (Reason: Pain) mirtazapine [Remeron] 30 mg tablet 30 mg PO DAILY Qty: 90 0RF albuterol sulfate [ProAir HFA] 90 mcg/actuation HFA aerosol inhaler 2 puff INHALATION Q6H PRN (Reason: Shortness Of Breath) Qty: 8.5 3RF fluticasone propionate [Flonase Allergy Relief] 50 mcg/actuation spray,suspension 2 spray INTRANASAL BID Qty: 18.2 4RF ondansetron HCl 4 mg tablet See Rx Instructions .ROUTE .COMPLEX Qty: 20 0RF Dose Instruction: TAKE 1 TABLET BY MOUTH EVERY 6 HOURS NEEDED FOR NAUSEA AND VOMITING Rx Instructions: TAKE 1 TABLET BY MOUTH EVERY 6 HOURS NEEDED FOR NAUSEA AND VOMITING pantoprazole 40 mg tablet,delayed release (DR/EC) See Rx Instructions .ROUTE .COMPLEX Qty: 90 2RF Dose Instruction: Take 1 tablet by mouth once daily Rx Instructions: Take 1 tablet by mouth once daily Januvia 100 mg tablet See Rx Instructions .ROUTE .COMPLEX Qty: 90 2RF Dose Instruction: Take 1 tablet by mouth once daily Rx Instructions: Take 1 tablet by mouth once daily ezetimibe 10 mg tablet See Rx Instructions .ROUTE .COMPLEX Qty: 90 2RF Dose Instruction: TAKE 1 TABLET BY MOUTH EVERY DAY AT BEDTIME Rx Instructions: TAKE 1 TABLET BY MOUTH EVERY DAY AT BEDTIME citalopram 40 mg tablet See Rx Instructions .ROUTE .COMPLEX Qty: 90 0RF Dose Instruction: Take 1 tablet by mouth once daily Rx Instructions: Take 1 tablet by mouth once daily tizanidine 4 mg tablet See Rx Instructions .ROUTE .COMPLEX Qty: 90 0RF Hold Instructions: Resume on 09/06/21. Try cyclobenzaprine. Do not take together Dose Instruction: Take 1 tablet by mouth three times daily as needed for muscle spasm Rx Instructions: Take 1 tablet by mouth three times daily as needed for muscle spasm Invokana 100 mg tablet See Rx Instructions .ROUTE .COMPLEX Qty: 90 0RF Dose Instruction: TAKE 1 TABLET BY MOUTH EVERY MORNING Rx Instructions: TAKE 1 TABLET BY MOUTH EVERY MORNING lisinopril 5 mg tablet See Rx Instructions .ROUTE .COMPLEX Qty: 90 0RF Dose Instruction: Take 1 tablet by mouth once daily Rx Instructions: Take 1 tablet by mouth once daily trazodone 100 mg tablet See Rx Instructions .ROUTE .COMPLEX Qty: 180 0RF Dose Instruction: TAKE 2 TABLETS BY MOUTH ONCE DAILY AT BEDTIME Rx Instructions: TAKE 2 TABLETS BY MOUTH ONCE DAILY AT BEDTIME Discharge Orders: Discharge ED (Routine); Ordered 02/21/23 Ordered By: Renetta Dixon Referrals: Carine Booth DO [Primary Care Provider] - Discharge Diet: Advance as tolerated Discharge Activity: Resume usual activity Patient Instructions: Opioid Safety, Pain Management, Vomiting - Adult Activity Restrictions/Additional Instructions: Discuss the new blood pressure medicine with your doctor. Monitor your blood pressure and heart rate at home, write down the readings and take them to your doctor. Coding Level of Care Code ED Light Equipment Operator for Steven Bernal
[2023-02-21 10:49] LABS: Lactate (Lactic Acid level) 1.7 mmol/L (0.5-2.2)
[2023-02-21] MEDS: acetaminophen 500 mg Tablet 1000 MG PO (11:49)
[2023-02-21] MEDS: metoprolol tartrate 1 mg/1 mL SDV 5 mL 5 MG IVP ×2 (11:50→13:35)
[2023-02-21 13:36] LABS: Urine Color Yellow (Yellow)
[2023-02-21 13:37] LABS: Add Urine Microscopic? YES; Bilirubin Urine Neg (Negative); Blood Urine 2+ (Negative); Glucose Urine UA 4+ (Normal); Ketones Urine 3+ (Negative); Leukocyte Esterase Urine Negative (Negative); Nitrate Urine Negative (Negative); Protein Urine Trace (Negative); Specific Gravity, Urine 1.015 (1.005-1.030); Urine Appearance Hazy (CLEAR); Urobilinogen Urine Norm (Negative); pH Urine 5 (5-7)
[2023-02-21] MEDS: lactated ringers 1,000 ML 999 ML IV (13:39)
[2023-02-21 13:44] LABS: Bacteria Urine 2+ /hpf; RBC Urine 0-4 /hpf (0-2); WBC Urine RARE /hpf (0-5)
[2023-02-21 13:45] LABS: Add Urine Culture? No
[2023-02-21 13:58] LABS: Ketone (Acetest) Serum Positive (Negative)
[2023-02-21 15:00] LABS: ABG PCO2 34.9 mmHg (35-45); ABG PH Result 7.47 (7.35-7.45); Arterial Blood Gas Hematocrit 52.3 % (37-47); Blood Gas Allen Test Pos; Blood Gas Sample Site Radial, right; Blood Gas Sample Type Arterial; HCO3 ABG 25.3 mmol/L (22-26); Oxygen Device ROOM AIR; PO2 ABG 62.1 mmHg (80.0-100.0)
--- NOTE | 2023-02-21 16:49 | PC.NURSE ---
physician aware of hypertension. reported BP of 176/120
[2023-02-23 03:31] LABS: Glucose Point of Care 200 mg/dL (70-110)
== END 2023-02-21 17:14 | disposition home or self-care (01) ==
PROVIDERS: Emergency Provider Emergency Medicine; PCP Family Medicine
DX: R11.2 Nausea with vomiting, unspecified (principal); E86.0 Dehydration; I10 Essential (primary) hypertension; E11.9 Type 2 diabetes mellitus without complications; F17.210 Nicotine dependence, cigarettes, uncomplicated; Z79.84 Long term (current) use of oral hypoglycemic drugs
CPT/HCPCS: 36416; 36600; 70450; 80053; 81001; 82009; 82803; 82962; 83605; 83690; 83735; 85025; 93005; 96361; 96374; 96375; 96376; 99285; J2405; J3490; J7040; J7120

== ENCOUNTER 2023-03-12 07:46 | Day surgery (SDC) | payer MEDICAID, SELFPAY ==
[2023-03-10 11:36] VITALS: BMI 29.2
[2023-03-12 08:08] VITALS: BP 135/87; PULSE 70; RESP 16; TEMP 36.3; O2SAT 93
[2023-03-12] MEDS: sodium chloride 0.9% 1,000 ML 30 ML IV (08:20)
[2023-03-12 08:21] LABS: Glucose Point of Care 177 mg/dL (70-110)
--- NOTE | 2023-03-12 08:58 | ANES.PREANE2 ---
Pre-Anesthetic Assessment Height/Weight: Height 1.63 m Weight 77.111 kg Temp Pulse Resp BP Pulse Ox O2 Del Method 97.3 F L 70 16 135/87 93 Room Air 03/12/23 08:08 03/12/23 08:08 03/12/23 08:08 03/12/23 08:08 03/12/23 08:08 03/12/23 08:08 Preop Diagnosis: Chronic cholecystitis Operation Date: 03/12/23 09:30 [place] [address]2849 egd R11.0,R10.13(Not Applicable) - Chava Dasilva DO Familial anesthetic complications: none Was Beta Hao taken within 24 hours: N/A Was Clonidine taken within 24 hours: N/A Last intake: Intake Last Liquid Date 03/11/23 Last Liquid Time 23:00 Last Solid Date 03/11/23 Last Solid Time 23:00 Social Tobacco (vapes) Exam alert and oriented x 3 Airway Submandibular: within normal limits Cervical ROM: within normal limits Mallampati: Class II Dentition: false History/ROS No significant history except as noted Pulmonary None reported CV/HEM Hypertension None reported Hepatic None reported GI Gastroesophageal Reflux Disease Metabolic Diabetes Mellitus and Hyperlipidemia [facility] [place] None reported Neuropsych Seizure (last one 10 years ago, 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) Anesthetic Plan ASA status: 3 Anesthesia: Anesthesia Evaluation and MAC Risk of > 500 ml blood loss (7ml/kg in children): No Medications/Allergies Home Medications Medication Instructions Recorded Confirmed Last Taken Type valacyclovir 1 gram tablet 1,000 mg PO DAILY PRN prn 11/23/19 03/12/23 Unknown History (Valtrex) naproxen sodium 220 mg tablet 220 mg PO BID PRN Pain 09/26/21 03/12/23 03/11/23 History (Aleve) albuterol sulfate 90 mcg/actuation 2 puff inhalation Q6H PRN 02/18/22 03/12/23 03/10/23 Rx aerosol inhaler (ProAir HFA) Shortness Of Breath #8.5 grams fluticasone propionate 50 2 spray intranasal BID #18.2 mL 04/29/22 03/12/23 03/11/23 Rx mcg/actuation nasal spray,suspension (Flonase Allergy Relief) metoprolol succinate 25 mg 25 mg PO DAILY #30 tabs 02/21/23 03/12/2323 Rx tablet,extended release 24 hr clonazepam 0.5 mg tablet (Klonopin) 0.25 mg PO BID PRN anxiety 30 days 02/23/23 03/12/23 03/09/23 Rx #20 tabs pantoprazole 40 mg tablet,delayed 40 mg PO BID 30 days #60 tabs 02/23/23 03/12/23 03/11/23 Rx release canagliflozin 100 mg tablet 100 mg PO DAILY 03/10/23 03/12/23 03/11/23 History (Invokana) citalopram 40 mg tablet 40 mg PO DAILY 03/10/23 03/12/23 03/11/23 History ezetimibe 10 mg tablet (Zetia) 10 mg PO BEDTIME 03/10/23 03/12/23 03/11/23 History lisinopril 5 mg tablet 5 mg PO DAILY 03/10/23 03/12/23 03/11/23 History ondansetron HCl 4 mg tablet 4 mg PO Q6H PRN Nausea 03/10/23 03/12/23 03/10/23 History sitagliptin phosphate 100 mg 100 mg PO DAILY 03/10/23 03/12/23 03/11/23 History tablet (Januvia) tizanidine 4 mg tablet 4 mg PO TID PRN Muscle Spasm 03/10/23 03/12/23 03/11/23 History trazodone 100 mg tablet 200 mg PO BEDTIME 03/10/23 03/12/23 03/11/23 History Allergies Allergy/AdvReac Type Severity Reaction Status Date / Time cephalexin [From Keflex] Allergy Intermediate Hives Verified 03/10/23 11:31 Penicillins Allergy Intermediate Hives Verified 03/10/23 11:31 atorvastatin AdvReac Mild ELEVATED Verified 03/10/23 11:31 BP - DOESN'T FEEL WELL. Current Medications Generic Name Dose Route Start Last Admin Trade Name Freq PRN Reason Stop Dose Admin Sodium Chloride 1,000 mls @ 30 mls/hr 03/12/23 08:15 03/12/23 08:20 Sodium Chloride 0.9% IV 03/13/23 08:14 30 mls/hr .Q24H LACY Administration PFSH Anesthesia Medical History Anxiety and depression Chronic left hip pain Gastroesophageal reflux Hypothyroidism Insomnia Opioid withdrawal without complication Type 2 diabetes mellitus, without long-term current use of insulin Surgical History H/O carpal tunnel repair H/O tubal ligation H/O: hysterectomy History of appendectomy History of tonsillectomy and adenoidectomy Hx of hand surgery right hand/index finger Status post colonoscopy (04/23/20) Repeat in 10 years Status post laparoscopic cholecystectomy (05/14/21) Family History Father Lung disease Other Atrial fibrillation CAD (coronary artery disease) COPD (chronic obstructive pulmonary disease) Cancer Stroke Social History Smoking and tobacco status: current every day smoker cigarettes Packs smoked per day: 1 Alcohol intake: never Household members: family Housing: House Data Anesthesia Cardiac Studies: No Data to Display
--- NOTE | 2023-03-12 09:58 | W.PM.OPSUD ---
Surgery/Procedure H&P Update DATE OF PROCEDURE: March 12, 2023 DATE H&P PERFORMED: 03/09/23 H&P UPDATE INFORMATION: I have reviewed H&P completed within last 30 days, I have examined patient prior to procedure and No changes to prior documentation PREOP DIAGNOSIS: Chronic cholecystitis PLANNED PROCEDURE: Operation Date: 03/12/23 09:30 Pro[place] Procedures p [id number] egd R11.0,R10.13(Not Applicable) - Chava Dasilva DO
[2023-03-12 10:18] VITALS: BP 139/46; PULSE 88; RESP 16; TEMP 36.2; O2SAT 92
[2023-03-12 10:28] VITALS: BP 104/68; RESP 18; O2SAT 93
--- NOTE | 2023-03-12 11:56 | ANE.PACU2 ---
Inpatient post-anesthesia follow up: Airway intact: Yes Vital signs: Temperature 97.1 F Pulse Rate 88 Respiratory Rate 18 Blood Pressure 104/68 Pulse Oximetry 93 Oxygen Delivery Me thod Room Air Oxygen Flow Rate Fraction of Inspir ed Oxygen Hydration adequate: Yes Nausea and vomiting: No Pain level: 2 Mental status: Baseline
== END 2023-03-12 10:50 | disposition home or self-care (01) ==
PROVIDERS: PCP Family Medicine; Visit Provider Surgery
PROC: 0DJ08ZZ Inspection of Upper Intestinal Tract, Via Natural or Artificial Opening Endoscopic (ICD-10-PCS; CPT 43235; principal; 2023-03-12 09:30)
DX: K29.70 Gastritis, unspecified, without bleeding; K21.9 Gastro-esophageal reflux disease without esophagitis; F17.210 Nicotine dependence, cigarettes, uncomplicated; I10 Essential (primary) hypertension; E11.9 Type 2 diabetes mellitus without complications; E78.5 Hyperlipidemia, unspecified; F41.9 Anxiety disorder, unspecified; F32.A Depression, unspecified
CPT/HCPCS: 36416; 43239; 82962; 88305; J2405; J2704; J7030

== ENCOUNTER → 2023-05-13 14:25 | Outpatient (BNVA) | payer MEDICAID, SELFPAY | PROVIDERS: PCP Family Medicine; Visit Provider Family Medicine | DX: E11.9 Type 2 diabetes mellitus without complications (principal); F51.04 Psychophysiologic insomnia; F17.219 Nicotine dependence, cigarettes, with unspecified nicotine-induced disorders; J44.9 Chronic obstructive pulmonary disease, unspecified; F41.9 Anxiety disorder, unspecified; F32.9 Major depressive disorder, single episode, unspecified; K29.70 Gastritis, unspecified, without bleeding | CPT/HCPCS: 83036 ==

== ENCOUNTER 2023-05-14 11:46 | Outpatient (CLI) | payer MEDICAID, SELFPAY ==
--- NOTE | 2023-05-14 | ECG_ITS ---
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 Interpretive Statements NAME OF STUDY: TREADMILL STRESS TEST INDICATION: [Chest Pain, ] EXERCISE DATA: The patient was exercised by Gilbert protocol. Baseline heart rate was 85 beats per minute. Baseline blood pressure was 111/79 millimeters of mercury. Target heart rate was 140 beats per minute. Maximum heart rate achieved was 143, which was 102% of the target heart rate. Maximum blood pressure was 206/85 millimeters of mercury. Total exercise time was 6 minutes. Maximum METs achieved was 7.The reason for ending the test was maximal effort achieved. The patient complained of shortness of breath during the stress test, which then resolved at the end of the test. ELECTROCARDIOGRAM: BASELINE: Showed sinus rhythm, normal axis, no significant ST-T changes at the baseline noted. [] EXERCISE: At the peak exercise level, [] No significant ST-T changes suggestive of ischemia noted. [] RECOVERY: During the recovery period, heart rate dropped appropriately. No significant ST-T changes in the recovery suggestive of ischemia noted. [] CONCLUSION: 1. Exercise capacity is fair 2. Heart rate response was appropriate 3. Blood pressure response was hypertensive 4. Symptoms not suggestive of ischemia. 5. Electrocardiogram portion of the stress test was not suggestive of ischemia. Electronically Signed On 05-21-2023 16:04:07 CDT by Tony Walker M.D. [id number]
[2023-05-14 11:53] VITALS: BMI 28.3
[2023-05-14 12:38] VITALS: BP 124/81; PULSE 86
== END 2023-05-14 11:47 | disposition home or self-care (01) ==
LOC: CDL 11:47
PROVIDERS: PCP Family Medicine; Visit Provider Family Medicine
DX: R07.89 Other chest pain (principal)
CPT/HCPCS: 93017

== ENCOUNTER 2023-06-10 10:53 | Outpatient (CLI) | payer MEDICAID, SELFPAY ==
--- NOTE | 2023-06-10 11:00 | CT_ITS ---
WS: [id number] LDCT LUNG CANCER SCREENING TECHNIQUE: Noncontrast CT of the chest with coronal and sagittal reformatted images. CLINICAL INFORMATION: screening COMPARISON: None. DLP: 59.42 mGy.cm DIvol: Mean CTDIvol: 1.20 (mGy) All CT scans at [facility] use at least one of these dose optimization techniques: automat ed exposure control; mA and/or kV adjustment per patient size (includes targeted exams where dose is matched to clinical indication); or iterative reconstruction. FINDINGS: Tiny noncalcified nodule RIGHT upper lobe anterolaterally. 3 mm noncalcified nodule RIGHT u pper lobe. Tiny noncalcified nodule RIGHT lower lobe. Mild thoracic curve. Mild thoracic kyphosis. Cholecystectomy clips. Normal GE junction. Adrenal gland s are normal. Splenic granulomas. Normal caliber thoracic aorta. Aortic calcification. No mediastinal or hilar lymphadenopathy. No axillary lymphadenopathy. Normal GE junction. CT/CT lung screening [id number] IMPRESSION: LUNG-RADS: 2-Benign Appearance or Behavior FOLLOW UP: 12 Month: Continue annual screening with LDCT
== END 2023-06-10 10:54 | disposition home or self-care (01) ==
PROVIDERS: PCP Family Medicine; Visit Provider Family Medicine
DX: Z12.2 Encounter for screening for malignant neoplasm of respiratory organs (principal); F17.219 Nicotine dependence, cigarettes, with unspecified nicotine-induced disorders
CPT/HCPCS: 71271; 83036

== ENCOUNTER → 2023-08-26 15:26 | Outpatient (BNVA) | payer MEDICAID, SELFPAY | PROVIDERS: PCP Family Medicine; Visit Provider Family Medicine | DX: E11.9 Type 2 diabetes mellitus without complications (principal) | CPT/HCPCS: 80053; 83036 ==

== ENCOUNTER → 2023-10-08 13:48 | Outpatient (BNVA) | payer MEDICAID, SELFPAY | PROVIDERS: PCP Family Medicine; Visit Provider Family Medicine | DX: R50.9 Fever, unspecified (principal); J20.8 Acute bronchitis due to other specified organisms; B96.89 Other specified bacterial agents as the cause of diseases classified elsewhere | CPT/HCPCS: 87400; 87426 ==

== ENCOUNTER → 2023-12-28 13:29 | Outpatient (BNVA) | payer MEDICAID, SELFPAY | PROVIDERS: PCP Family Medicine; Visit Provider Family Medicine | DX: R05.9 Cough, unspecified (principal); R50.9 Fever, unspecified; J06.9 Acute upper respiratory infection, unspecified | CPT/HCPCS: 87400; 87426 ==

== ENCOUNTER → 2024-05-12 10:52 | Outpatient (BNVA) | payer SELFPAY | PROVIDERS: PCP Family Medicine; Visit Provider Family Medicine | DX: E11.9 Type 2 diabetes mellitus without complications (principal); Z13.6 Encounter for screening for cardiovascular disorders; Z79.899 Other long term (current) drug therapy | CPT/HCPCS: 80053; 80061; 82043; 83036; 85025 ==

== ENCOUNTER 2024-07-25 14:57 | Outpatient (CLI) | payer MEDICAID, SELFPAY ==
--- NOTE | 2024-07-25 15:15 | CT_ITS ---
WS: [id number] LDCT LUNG CANCER SCREENING HISTORY: screening TECHNIQUE: Axial imaging performed from the apices to 1 cm below the costophrenic angles. Coronal and sagittal reformats are submitted with axial MIP series. All CT scans at [facility] use at least one of these dose optimization techniques: automated exposure control; mA and/or kV adjustment per patient size (includes targeted exams where dose is matched to clinical indication); or iterativ e reconstruction. DLP: 48.21 mGy.cm DIvol: Mean CTDIvol: 1.00 (mGy) COMPARISON: 06/10/2023 Diagnostic quality: Satisfactory Lungs: No suspicious masses or nodules. There are a few micronodules. No endobronchial lesions. No pn eumonia. Heart: Normal size heart with no pericardial effusion.. Other findings: No mediastinal or hilar adenopathy is identified. Very minimal atherosclerosis aorta. Prior cholecystectomy. CT/CT lung screening [id number] IMPRESSION: LUNG-RADS: 2-Benign Appearance or Behavior FOLLOW UP: 12 Month: Continue annual screening with LDCT OTHER FINDINGS (S MODIFIER): None.
== END 2024-07-25 14:58 | disposition home or self-care (01) ==
PROVIDERS: PCP Family Medicine; Visit Provider Family Medicine
DX: F17.219 Nicotine dependence, cigarettes, with unspecified nicotine-induced disorders (principal); Z12.2 Encounter for screening for malignant neoplasm of respiratory organs
CPT/HCPCS: 71271

== ENCOUNTER 2024-07-26 14:48 | Outpatient (CLI) | payer MEDICAID, SELFPAY ==
--- NOTE | 2024-07-26 14:52 | MM_ITS ---
WS: [id number] BILATERAL 3D TOMOSYNTHESIS DIGITAL SCREENING MAMMOGRAPHY WITH CAD CLINICAL INFORMATION: screening HISTORY: Screening mammogram. No current complaints. COMPARISON: 2022 TECHNIQUE: Bilateral CC and MLO views. FINDINGS: Scattered fibroglandular densities bilaterally. No suspicious focal mass, asymmetry, calcifications, or architectural distortion. No evidence of malignancy. Vascular calcification. A few incidental punc arguello calcifications. MM/[place] [id number] IMPRESSION: BI-RADS: 2-Benign FOLLOW UP: 1 Year Follow-up Recommend return to annual screening mammography.
== END 2024-07-26 14:49 | disposition home or self-care (01) ==
LOC: RAD 14:49
PROVIDERS: PCP Family Medicine; Visit Provider Family Medicine
DX: N94.89 Other specified conditions associated with female genital organs and menstrual cycle (principal); Z12.31 Encounter for screening mammogram for malignant neoplasm of breast; R92.323 Mammographic fibroglandular density, bilateral breasts; R92.1 Mammographic calcification found on diagnostic imaging of breast
CPT/HCPCS: 77063; 77067

== ENCOUNTER 2024-08-02 07:15 | Outpatient (CLI) | payer MEDICAID, SELFPAY ==
--- NOTE | 2024-08-02 | US_ITS ---
WS: [id number] US pelvis lmt w transvag HISTORY: ovarian pain COMPARISON: None available. Prior hysterectomy. No midline mass. Right ovary: 2.2 cm x 1.1 cm x 1.5 cm. Normal size and vascularity, no cystic or solid masses. Left ovary: Not visualized. No adnexal mass. No free fluid in the cul-de-sac. US/US pelvis lmt w transvag IMPRESSION: 1. Status post hysterectomy. No midline mass. 2. Nonvisualization LEFT ovary. 3. Small caliber RIGHT ovary. No abnormality.
== END 2024-08-02 07:16 | disposition home or self-care (01) ==
PROVIDERS: PCP Family Medicine; Visit Provider Family Medicine
DX: N94.89 Other specified conditions associated with female genital organs and menstrual cycle (principal); Z90.710 Acquired absence of both cervix and uterus
CPT/HCPCS: 76830; 76857

== ENCOUNTER 2024-11-17 23:27 | Emergency (ER) | payer MEDICAID, SELFPAY ==
[2024-11-17 23:35] VITALS: BP 131/92; PULSE 107; RESP 20; TEMP 36.6; O2SAT 95; BMI 28.1
[2024-11-17 23:48] VITALS: BP 138/67; PULSE 106; RESP 20; O2SAT 94
--- NOTE | 2024-11-17 23:52 | W.ED.SEIZURE ---
HPI - Seizure General: Chief Complaint: Seizure Stated Complaint: SEIZURE Time Seen by Provider: 11/17/24 23:45 History of Present Illness: HPI Narrative: Patient presents to the ER postictal after having a seizure. Patient does have a seizure history. She is not on any antiseizure medicine. EMS states that the bystanders began CPR because they thought she was cyanotic even though she did not ever lose a pulse. Patient then woke up and become agitated and started complaining of her chest pain. Patient is alert oriented and coherent in the ER. Seizure History: Yes Place: Home Related Data Home Medications Medication Instructions Recorded Confirmed valacyclovir 1 gram tablet 1,000 mg PO DAILY PRN prn 11/23/19 07/19/24 (Valtrex) Previous Rx's Medication Instructions Recorded albuterol sulfate 90 mcg/actuation 2 puff inhalation Q6H PRN 05/13/23 aerosol inhaler (ProAir HFA) Shortness Of Breath #8.5 grams clonazepam 0.5 mg tablet (Klonopin) 0.25 mg (1/2 x 0.5 mg) PO BID PRN 11/16/23 anxiety 4 days #4 tabs fluticasone propionate 50 See Rx Instructions .Route 01/18/24 mcg/actuation nasal .COMPLEX #16 grams spray,suspension clotrimazole 10 mg dennis 10 mg mucous membrane QID 15 days 01/19/24 #60 tabs ezetimibe 10 mg tablet See Rx Instructions .Route 05/14/24 .COMPLEX #90 tabs methocarbamol 500 mg tablet 500 mg PO TID #90 tabs 07/19/24 citalopram 40 mg tablet See Rx Instructions .Route 10/16/24 .COMPLEX #60 tabs canagliflozin 100 mg tablet 100 mg PO DAILY #90 tabs 10/19/24 (Invokana) lisinopril 5 mg tablet See Rx Instructions .Route 11/13/24 .COMPLEX #90 tabs trazodone 300 mg tablet 300 mg PO .q hs #90 tabs 11/13/24 sitagliptin phosphate 100 mg See Rx Instructions .Route 11/15/24 tablet (Januvia) .COMPLEX #90 tabs Allergies Allergy/AdvReac Type Severity Reaction Status Date / Time cephalexin [From Keflex] Allergy Intermediate Hives Verified 07/19/24 10:10 Penicillins Allergy Intermediate Hives Verified 07/19/24 10:10 atorvastatin AdvReac Mild ELEVATED Verified 07/19/24 10:10 BP - DOESN'T FEEL WELL. Review of Systems General: Reports: 10 or more systems reviewed and unremarkable except in HPI and below PFSH ED PFSH: Medical History Lower back pain History of methamphetamine abuse last jose 2017 Herpes simplex virus (HSV) infection of vagina Insomnia Opioid withdrawal without complication Type 2 diabetes mellitus, without long-term current use of insulin Hypothyroidism Anxiety and depression Gastroesophageal reflux Chronic left hip pain Surgical History Hx of hand surgery right hand/index finger Status post laparoscopic cholecystectomy (05/14/21) Status post colonoscopy (04/23/20) Repeat in 10 years H/O carpal tunnel repair H/O: hysterectomy H/O tubal ligation History of appendectomy History of tonsillectomy and adenoidectomy Family History Father Lung disease Other Atrial fibrillation CAD (coronary artery disease) COPD (chronic obstructive pulmonary disease) Cancer Stroke Social History Smoking and tobacco/nicotine status: current every day tobacco/nicotine user cigarettes Packs smoked per day: 1 Alcohol intake: current Alcohol intake frequency: holidays/special occasions only Substance/Drug Use: current Substance/Drug use frequency: few times a week Household members: family Housing: House Physical Exam Const: COMMON NORMALS: no acute distress, average body habitus, patient oriented x3, no limitations, healthy appearing, alert and well nourished HENMT: COMMON NORMALS: normocephalic, atraumatic, hearing grossly normal bilaterally, external ears normal, Normal external nose present and moist oral mucous membranes HEAD & SCALP: normocephalic and atraumatic NOSE: Normal external nose present EXTERNAL EAR: Yes external ears normal Eye: COMMON NORMALS: Equal, round and reactive pupils present, EOMs intact bilaterally, conjunctivae normal and no scleral icterus CONJUNCTIVA: Yes conjunctivae normal PUPIL: Yes Equal, round and reactive pupils present Neck/C-Spine: COMMON NORMALS: full ROM, no lymphadenopathy, supple, no meningeal signs, no JVD and Thyroid normal THYROID: Thyroid normal Chest: COMMONS NORMALS: normal inspection of the chest and normal palpation of entire chest wall Resp: COMMON NORMALS: normal respiratory effort, No retractions, No use of accessory muscles and clear to auscultation bilaterally AUSCULTATION: clear to auscultation bilaterally Cardio: COMMON NORMALS: no JVD, regular rate, regular rhythm, S1 normal heart sound present, S2 normal heart sound present, No gallops present (Cardio), No clicks present (Cardio), No murmurs present (Cardio) and No rub (Cardio) RATE: regular rate RHYTHM: regular rhythm HEART SOUNDS: S1 normal heart sound present and S2 normal heart sound present GI: COMMON NORMALS: Normal to inspection, nondistended, normoactive bowel sounds present, Soft to palpation, non-tender, No hepatosplenomegaly present and no masses PALPATION: Yes Soft to palpation and Yes No hepatosplenomegaly present Neuro: COMMON NORMALS: patient oriented x3 SENSORIUM/ORIENTATION: Yes alert MENINGEAL SIGNS: Yes no meningeal signs Course Vital Signs: Vital signs: Vital Signs Temperature 98 F 11/17/24 23:35 Pulse Rate 101 H 11/18/24 01:32 Respiratory Rate 14 11/18/24 01:32 Blood Pressure 205/110 11/18/24 01:32 Pulse Oximetry 94 11/18/24 01:32 Oxygen Delivery Me thod Nasal Cannula 11/18/24 01:32 Oxygen Flow Rate 2 11/18/24 01:32 MDM - Seizure MDM Narrative Medical decision making narrative: Patient had lab work done that was reviewed. Due to the stress of her seizing and having an not needed CPR done her white count is elevated 21.9, glucose 306, urinalysis 3+ protein 3+ glucose 3+ blood, patient is feeling better and back to her normal self. Patient be discharged home. Lab Data 11/17/24 23:58 11/17/24 23:58 Labs: Radiology Impressions Chest X-Ray 11/18/24 00:17 IMPRESSION: No acute findings. Laboratory Results WBC 21.96 10^3/uL (3.29-11.43) H 11/17/24 23:58 RBC 5.84 10^6/uL (3.85-5.65) H 11/17/24 23:58 Hgb 17.70 g/dL (11.27-16.99) H 11/17/24 23:58 Hct 52.0 % (36-47) H 11/17/24 23:58 MCV 89.0 fl (85-98) 11/17/24 23:58 MCH 30.3 pg (27-33) 11/17/24 23:58 MCHC 34.0 g/dL (30-55) 11/17/24 23:58 RDW 12.0 % (12.1-15.1) L 11/17/24 23:58 Plt Count 319 10^3/cmm (157-399) 11/17/24 23:58 MPV 8.7 fL (7.4-10.4) 11/17/24 23:58 Neut % (Auto) 91.0 % 11/17/24 23:58 Lymph % (Auto) 5.1 % 11/17/24 23:58 Martin % (Auto) 3.1 % 11/17/24 23:58 Eos % (Auto) 0.0 % 11/17/24 23:58 Baso % (Auto) 0.2 % 11/17/24 23:58 Neut # (Auto) 19.99 10^3/uL (1.8-7.7) H 11/17/24 23:58 Lymph # (Auto) 1.1 10^3/uL (0.8-4.8) 11/17/24 23:58 Martin # (Auto) 0.7 10^3/uL (0.2-0.9) 11/17/24 23:58 Eos # (Auto) 0.0 10^3/uL (0.0-0.8) 11/17/24 23:58 Baso # (Auto) 0.0 10^3/uL (0.0-0.1) 11/17/24 23:58 Nucleated RBC % (auto) 0 % 11/17/24 23:58 Nucleated RBCs # 0.0 /100WBC 11/17/24 23:58 Sodium 139 mmol/L (136-145) 11/17/24 23:58 Potassium 3.4 mmol/L (3.5-5.1) L 11/17/24 23:58 Chloride 100 mmol/L (98-107) 11/17/24 23:58 Carbon Dioxide 19 mmol/L (22-29) L 11/17/24 23:58 Anion Gap 23.4 (5-19) H 11/17/24 23:58 BUN 19 mg/dL (6-20) 11/17/24 23:58 Creatinine 1.0 mg/dL (0.5-0.9) H 11/17/24 23:58 GFR Calculation 57.4 mL/min (90-130) L 11/17/24 23:58 Glucose 306 mg/dL (65-115) H 11/17/24 23:58 Calculated Osmolality 302 mOsm/kg (285-295) H 11/17/24 23:58 Calcium 9.6 mg/dL (8.5-10.5) 11/17/24 23:58 Magnesium 1.7 mg/dL (1.7-2.3) 11/17/24 23:58 Total Bilirubin 0.6 mg/dL (0.15-1.2) 11/17/24 23:58 AST 17 U/L (0-32) 11/17/24 23:58 ALT 11 U/L (0-33) 11/17/24 23:58 Alkaline Phosphatase 112 U/L (35-105) H 11/17/24 23:58 Total Protein 7.3 g/dL (6.6-8.7) 11/17/24 23:58 Albumin 4.5 g/dL (3.5-5.2) 11/17/24 23:58 Globulin 2.8 g/dL (1.3-4.6) 11/17/24 23:58 Procalcitonin 0.02 ng/mL (0-0.5) 11/17/24 23:58 Urine Color Yellow (Yellow) 11/18/24 01:15 Urine Appearance Clear (CLEAR) 11/18/24 01:15 Urine pH 5.5 (5-7) 11/18/24 01:15 Ur Specific [place] 1.029 (1.005-1.030) 11/18/24 01:15 Urine Protein 3+ (Negative) A 11/18/24 01:15 Urine Glucose (UA) 3+ (Normal) H 11/18/24 01:15 Urine Ketones 3+ (Negative) H 11/18/24 01:15 Urine Blood 3+ (Negative) A 11/18/24 01:15 Urine Nitrate Negative (Negative) 11/18/24 01:15 Urine Bilirubin Negative (Negative) 11/18/24 01:15 Urine Urobilinogen 0.2 mg/dL (Negative) 11/18/24 01:15 Ur Leukocyte Esterase Negative (Negative) 11/18/24 01:15 Urine RBC 3-5 /hpf (0-2) 11/18/24 01:15 Urine WBC 0-5 /hpf (0-5) 11/18/24 01:15 Ur Squamous Epith Cells 0-5 /hpf (0-5) 11/18/24 01:15 Amorphous Sediment Not Reportable 11/18/24 01:15 Urine Bacteria None seen /hpf (NONE) 11/18/24 01:15 Hyaline Casts 4.52 /lpf 11/18/24 01:15 Urine Opiates Screen Negative ng/mL (Negative) 11/18/24 01:15 Ur Barbiturates Screen Negative ng/mL (Negative) 11/18/24 01:15 Ur Phencyclidine Scrn Negative ng/mL (Negative) 11/18/24 01:15 Ur Amphetamines Screen Negative ng/mL (Negative) 11/18/24 01:15 U Benzodiazepines Scrn Negative ng/mL (Negative) 11/18/24 01:15 Urine Cocaine Screen Negative ng/mL (Negative) 11/18/24 01:15 U Marijuana (THC) Screen Positive ng/mL (Negative) H 11/18/24 01:15 All radiology interpretation(s) finalized by discharge Discharge Plan Discharge Patient Disposition: Home Clinical Impression: Seizure Hypertension Qualifiers: Hypertension type: unspecified Qualified Code(s): I10 - Essential (primary) hypertension Condition: Stable Prescriptions: No Action valacyclovir [Valtrex] 1 gram tablet 1,000 mg PO DAILY PRN (Reason: prn) albuterol sulfate [ProAir HFA] 90 mcg/actuation HFA aerosol inhaler 2 puff INHALATION Q6H PRN (Reason: Shortness Of Breath) Qty: 8.5 3RF clonazepam [Klonopin] 0.5 mg tablet 0.25 mg PO BID PRN (Reason: anxiety) 4 Days Qty: 4 0RF clotrimazole 10 mg dennis 10 mg mucous membrane QID 15 Days Qty: 60 0RF Rx Instructions: Dissolve in mouth and swish around before swallowing methocarbamol 500 mg tablet 500 mg PO TID Qty: 90 2RF fluticasone propionate 50 mcg/actuation spray,suspension See Rx Instructions .ROUTE .COMPLEX Qty: 16 0RF Dose Instruction: USE 2 SPRAY(S) IN EACH NOSTRIL TWICE DAILY Rx Instructions: USE 2 SPRAY(S) IN EACH NOSTRIL TWICE DAILY ezetimibe 10 mg tablet See Rx Instructions .ROUTE .COMPLEX Qty: 90 1RF Dose Instruction: TAKE 1 TABLET BY MOUTH ONCE DAILY AT BEDTIME Rx Instructions: TAKE 1 TABLET BY MOUTH ONCE DAILY AT BEDTIME citalopram 40 mg tablet See Rx Instructions .ROUTE .COMPLEX Qty: 60 0RF Dose Instruction: Take 1 tablet by mouth once daily Rx Instructions: Take 1 tablet by mouth once daily Invokana 100 mg tablet 100 mg PO DAILY Qty: 90 0RF Rx Instructions: Please dispense entire 90 quantity lisinopril 5 mg tablet See Rx Instructions .ROUTE .COMPLEX Qty: 90 0RF Dose Instruction: Take 1 tablet by mouth once daily Rx Instructions: Take 1 tablet by mouth once daily trazodone 300 mg tablet 300 mg PO .q hs Qty: 90 0RF Januvia 100 mg tablet See Rx Instructions .ROUTE .COMPLEX Qty: 90 1RF Dose Instruction: Take 1 tablet by mouth once daily Rx Instructions: Take 1 tablet by mouth once daily Discharge Orders: Discharge ED (Routine); Ordered 11/18/24 Ordered By: Andrea Soto Referrals: Franko Chávez MD [Primary Care Provider] - 1 week Patient Instructions: Hypertension, Seizures Activity Restrictions/Additional Instructions: Activity restrictions/additional instructions: Thank you for choosing [facility] for your healthcare needs today. Please realize that you were seen in the emergency department and that we are providing you with an emergency medical screening exam and this may not be a complete and all exclusive of all testing and/or medical workup we may need to determine your element or severity of your illness. It is very important that you follow-up as instructed with your primary care provider or specialist for the additional evaluation and to discuss your medical treatment plan. You may return to the emergency department should you have concerns or if your condition changes or worsens in any way. Coding Level of Care Code ED [employer] for Steven Bernal
[2024-11-18 00:16] LABS: Basophils % 0.2 %; Lymphocytes # 1.1 10^3/uL (0.8-4.8); Lymphocytes % 5.1 %; Mean Corpuscular Hemoglobin 30.3 pg (27-33); Mean Platelet Volume 8.7 fL (7.4-10.4); Monocytes # 0.7 10^3/uL (0.2-0.9); Monocytes % 3.1 %; Neutrophils # 19.99 10^3/uL (1.8-7.7); Nucleated Red Blood Cells % 0 %; Platelet Count 319 10^3/cmm (157-399); Red Blood Count 5.84 10^6/uL (3.85-5.65); White Blood Count 21.96 10^3/uL (3.29-11.43)
--- NOTE | 2024-11-18 00:17 | XRR_ITS ---
PROCEDURE INFORMATION: Exam: XR Chest Exam date and time: 11/18/2024 12:19 AM Age: 54 years old Clinical indication: Prior surgery; Surgery date: 6+ months; Surgery type: Gb; Patient HX: Persistent hypoxia post seizure. History of copd. TECHNIQUE: Imaging protocol: Radiologic exam of the chest. Views: 1 view. COMPARISON: CT lung screening [id number] 07/25/2024 3:08 PM FINDINGS: Lungs: Unremarkable. No consolidation. Pleural spaces: Unremarkable. No pleural effusion. No pneumothorax. Heart/Mediastinum: Unremarkable. No cardiomegaly. Bones/joints: Unremarkable. XR/XR chest 1V portable [id number] IMPRESSION: No acute findings.
[2024-11-18 00:30] LABS: Alanine Aminotransferase 11 U/L (0-33); Albumin Level 4.5 g/dL (3.5-5.2); Alkaline Phosphatase 112 U/L (35-105); Anion Gap 23.4 (5-19); Aspartate Amino Transferase 17 U/L (0-32); Blood Urea Nitrogen 19 mg/dL (6-20); Calcium 9.6 mg/dL (8.5-10.5); Carbon Dioxide 19 mmol/L (22-29); Chloride 100 mmol/L (98-107); Creatinine Clr Calc Pharmacy 62.0541; Globulin 2.8 g/dL (1.3-4.6); Glomerular Filtration Rate 57.4 mL/min (90-130); Glucose 306 mg/dL (65-115); Magnesium 1.7 mg/dL (1.7-2.3); Osmolality Calculated 302 mOsm/kg (285-295); Potassium 3.4 mmol/L (3.5-5.1); Sodium 139 mmol/L (136-145); Total Bilirubin 0.6 mg/dL (0.15-1.2); Total Protein 7.3 g/dL (6.6-8.7)
[2024-11-18 00:58] LABS: Procalcitonin 0.02 ng/mL (0-0.5)
[2024-11-18 01:05] VITALS: BP 198/115; PULSE 109; RESP 21; O2SAT 97
[2024-11-18] MEDS: hyDRALAzine 20 mg/mL INJ 1 mL IVP (01:28)
[2024-11-18 01:32] VITALS: BP 205/110; PULSE 101; RESP 14; O2SAT 94
[2024-11-18 01:54] LABS: Bilirubin Urine Negative (Negative); Blood Urine 3+ (Negative); Glucose Urine UA 3+ (Normal); Ketones Urine 3+ (Negative); Leukocyte Esterase Urine Negative (Negative); Nitrate Urine Negative (Negative); Protein Urine 3+ (Negative); Specific Gravity, Urine 1.029 (1.005-1.030); Urine Appearance Clear (CLEAR); Urine Color Yellow (Yellow); Urobilinogen Urine 0.2 mg/dL (Negative); pH Urine 5.5 (5-7)
[2024-11-18 01:59] LABS: Add Urine Microscopic? YES; Bacteria Urine None Seen /hpf; Hyaline Casts Urine 4.52 /lpf; Squamous Epithelial Cell Urine 0-5 /hpf (0-5); WBC Urine 0-5 /hpf (0-5)
[2024-11-18 02:02] LABS: Amphetamines Screen Urine Negative (Negative); Barbiturates Screen Urine Negative (Negative); Benzodiazepines Screen Urine Negative (Negative); Cocaine Screen Urine Negative (Negative); Opiate Screen Urine Negative (Negative); PCP Screen Urine Negative (Negative); THC Screen Urine Positive (Negative)
[2024-11-18 02:14] VITALS: BP 178/104
[2024-11-18] MEDS: cloNIDine 0.1 mg Tablet 0.2 MG PO (02:14)
[2024-11-18 02:54] VITALS: BP 170/78; PULSE 103; RESP 16; O2SAT 95
[2024-11-18] MEDS: ondansetron 4 MG Tablet 8 MG PO (03:00)
== END 2024-11-18 03:04 | disposition home or self-care (01) ==
PROVIDERS: Emergency Provider Emergency Medicine; PCP Family Medicine
DX: R56.9 Unspecified convulsions (principal); I10 Essential (primary) hypertension; E11.9 Type 2 diabetes mellitus without complications; F17.210 Nicotine dependence, cigarettes, uncomplicated
CPT/HCPCS: 36415; 71045; 80053; 80306; 81001; 83735; 84145; 85025; 96374; 99284; J0360; Q0162

== ENCOUNTER → 2025-02-08 13:50 | Outpatient (BNVA) | payer MEDICAID, SELFPAY | PROVIDERS: PCP Family Medicine; Visit Provider Family Medicine | DX: E11.9 Type 2 diabetes mellitus without complications (principal) | CPT/HCPCS: 80053; 83036 ==

== ENCOUNTER 2025-04-15 10:10 | Emergency (ER) | payer MEDICAID, SELFPAY ==
--- NOTE | 2025-04-15 10:15 | ECG_ITS ---
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 Measurements Intervals [place] Rate: 111 P: 78 OH: 108 QRS: 46 QRSD: 89 T: 73 QT: 358 QTc: 488 Interpretive Statements SINUS TACHYCARDIA POSSIBLE RIGHT ATRIAL ENLARGEMENT [0.25mV P-WAVE] LOW QRS VOLTAGE IN PRECORDIAL LEADS [QRS DEFLECTION < 1.0 mV IN CHEST LEADS] ABNORMAL RHYTHM ECG Compared to ECG 02/21/2023 10:23:04 Sinus rhythm no longer present Electronically Signed On 04-15-2025 12:28:10 CDT by Rocio Black M.D. [email or web address]
[2025-04-15 10:16] VITALS: BP 145/88; PULSE 113; RESP 17; TEMP 37; O2SAT 96; BMI 25.7
== END 2025-04-15 10:30 | disposition left against medical advice (07) ==
LOC: ER 10:14
PROVIDERS: Emergency Provider Family Medicine; PCP Family Medicine
DX: R00.0 Tachycardia, unspecified (principal); R94.31 Abnormal electrocardiogram [ECG] [EKG]; Z53.21 Procedure and treatment not carried out due to patient leaving prior to being seen by health care provider
CPT/HCPCS: 93005

== ENCOUNTER 2025-04-16 10:49 | Emergency (ER) | payer MEDICAID, SELFPAY ==
[2025-04-16 11:31] VITALS: BP 179/103; PULSE 104; TEMP 36.8; O2SAT 95; BMI 25.7
[2025-04-16 12:03] LABS: Basophils # 0.1 10^3/uL (0.0-0.1); Basophils % 0.8 %; Eosinophils % 0.2 %; Hematocrit 54.1 % (36-47); Lymphocytes # 3.7 10^3/uL (0.8-4.8); Lymphocytes % 27.8 %; Mean Corpuscular HGB Conc 34.6 g/dL (30-55); Mean Corpuscular Hemoglobin 30.9 pg (27-33); Mean Corpuscular Volume 89.4 fl (85-98); Mean Platelet Volume 8.8 fL (7.4-10.4); Monocytes % 7.4 %; Neutrophils # 8.39 10^3/uL (1.8-7.7); Neutrophils % 63.3 %; Nucleated Red Blood Cells % 0 %; Platelet Count 266 10^3/cmm (157-399); Red Blood Count 6.05 10^6/uL (3.85-5.65); White Blood Count 13.22 10^3/uL (3.29-11.43)
[2025-04-16 12:25] LABS: Alanine Aminotransferase 10 U/L (0-33); Albumin Level 4.1 g/dL (3.5-5.2); Alkaline Phosphatase 99 U/L (35-105); Anion Gap 23.6 (5-19); Aspartate Amino Transferase 13 U/L (0-32); Blood Urea Nitrogen 20 mg/dL (6-20); Calcium 9.3 mg/dL (8.5-10.5); Carbon Dioxide 19 mmol/L (22-29); Chloride 94 mmol/L (98-107); Creatinine Clr Calc Pharmacy 73.5332; Globulin 3.2 g/dL (1.3-4.6); Glomerular Filtration Rate 73.9 mL/min (90-130); Glucose 212 mg/dL (65-115); Lipase 21 U/L (13-60); Osmolality Calculated 285 mOsm/kg (285-295); Potassium 3.6 mmol/L (3.5-5.1); Sodium 133 mmol/L (136-145); Total Bilirubin 0.8 mg/dL (0.15-1.2); Total Protein 7.3 g/dL (6.6-8.7)
--- NOTE | 2025-04-16 13:55 | W.ED.NAVMDI ---
HPI - Nausea/Vomiting/Diarrhea General: Chief complaint: Nausea/Vomiting/Diarrhea Stated complaint: N/V Time Seen by Provider: 04/16/25 13:41 History of Present Illness: 55-year-old female presents emergency room complaining of epigastric right upper quadrant abdominal pain and vomiting for the last couple of days she is not really had a fever that she has been able to register at times she has had some chills. The nausea is persisting but the vomiting has decreased. Is a difficult time keeping anything down. She denies any medic easy melena or hematemesis. She has not noticed anything that aggravates or relieves it. Patient previously has had laparoscopic cholecystectomy as well as tubal ligation hysterectomy and appendectomy. Associated nausea: Yes Associated symtoms: Reports nausea; Denies chest pain or dysuria Related Data Home Medications ?Medication ?Instructions ?Recorded ?Confirmed albuterol sulfate 90 mcg/actuation 2 puff inhalation Q6H PRN 04/16/25 04/16/25 aerosol inhaler (Ventolin HFA) Shortness Of Breath citalopram 40 mg tablet 40 mg PO DAILY 04/16/25 04/16/25 ezetimibe 10 mg tablet 10 mg PO BEDTIME 04/16/25 04/16/25 fluticasone propionate 50 2 spray intranasal BID PRN 04/16/25 04/16/25 mcg/actuation nasal allergies spray,suspension sitagliptin phosphate 100 mg 100 mg PO DAILY 04/16/25 04/16/25 tablet (Januvia) Previous Rx's ?Medication ?Instructions ?Recorded methocarbamol 500 mg tablet 500 mg PO TID #90 tabs 12/05/24 canagliflozin 100 mg tablet 100 mg PO DAILY #90 tabs 02/08/25 (Invokana) lisinopril 5 mg tablet 5 mg PO DAILY #90 tabs 02/08/25 bupropion HCl 300 mg 24 hr tablet, 300 mg PO QAM #30 tabs 04/05/25 extended release trazodone 300 mg tablet 300 mg PO .q hs #90 tabs 04/09/25 promethazine 25 mg tablet 25 mg PO Q6H PRN nausea and 04/16/25 vomiting #20 tabs clonazepam 0.5 mg tablet (Klonopin) 0.5 mg PO BID PRN anxiety 5 days 04/18/25 #10 tabs Allergies Allergy/AdvReac Type Severity Reaction Status Date / Time cephalexin (From Keflex) Allergy Intermediate Hives Verified 04/16/25 11:37 Penicillins Allergy Intermediate Hives Verified 04/16/25 11:37 atorvastatin AdvReac Mild ELEVATED Verified 04/16/25 11:37 BP - DOESN'T FEEL WELL. 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 Insomnia Opioid withdrawal without complication Type 2 diabetes mellitus, without long-term current use of insulin Hypothyroidism Anxiety and depression Gastroesophageal reflux Chronic left hip pain Surgical History Hx of hand surgery right hand/index finger Status post laparoscopic cholecystectomy (05/14/21) Status post colonoscopy (04/23/20) Repeat in 10 years H/O carpal tunnel repair H/O: hysterectomy H/O tubal ligation History of appendectomy History of tonsillectomy and adenoidectomy Family History Father Lung disease Other Atrial fibrillation CAD (coronary artery disease) COPD (chronic obstructive pulmonary disease) Cancer Stroke Social History Smoking and tobacco/nicotine status: current every day tobacco/nicotine user cigarettes Packs smoked per day: 1 Alcohol intake: current Alcohol intake frequency: holidays/special occasions only Substance/Drug Use: current Substance/Drug use frequency: few times a week Household members: family Housing: House Physical Exam Const: GENERAL APPEARANCE: cooperative ORIENTATION/CONSCIOUSNESS: Yes awake, Yes oriented to person, Yes oriented to place and Yes oriented to time HENMT: COMMON NORMALS: normocephalic, atraumatic and hearing grossly normal bilaterally HEAD & SCALP: normocephalic and atraumatic Resp: COMMON NORMALS: normal respiratory effort, No retractions, No use of accessory muscles and clear to auscultation bilaterally AUSCULTATION: clear to auscultation bilaterally Cardio: COMMON NORMALS: regular rate, regular rhythm and No murmurs present (Cardio) RATE: regular rate RHYTHM: regular rhythm GI: COMMON NORMALS: Soft to palpation and No hepatosplenomegaly present AUSCULTATION: Yes normoactive bowel sounds PALPATION: Yes Soft to palpation, No Tenderness to palpation present (GI), No Guarding due to palpation present (GI) and Yes No hepatosplenomegaly present Extremity: COMMON NORMALS: normal to inspection, capillary refill normal, no clubbing, cyanosis or edema, no calf tenderness and no pedal edema Neuro: SENSORIUM/ORIENTATION: Yes oriented to person, Yes oriented to place and Yes oriented to time Skin: COMMON NORMALS: no rashes or lesions noted GENERAL SKIN EXAM: no rashes or lesions noted Course Vital Signs: Vital signs: Vital Signs Temperature 98.3 F 04/16/25 11:31 Pulse Rate 98 04/16/25 16:49 Blood Pressure 160/74 04/16/25 16:49 Pulse Oximetry 93 04/16/25 16:49 Oxygen Delivery Me thod Room Air 04/16/25 11:31 MDM - Nausea/Vomiting/Diarrhea Medical Decision Making Labs and imaging reviewed. No acute findings on the CT biliary ducts are unremarkable. No other acute pathology is noted. Chest x-ray also did not show anything acute. Patient does have mild leukocytosis. Generally she is feeling better after fluids she had an anion gap she given IV fluids feeling much better nausea is improved no signs of UTI she does have a few red blood cells in her high-power in the urine however CT did not show any abnormality. Blood cultures ordered. Will discharge patient home supportive cares push fluids Tylenol and ibuprofen return if has further problems. Lab Data 04/16/25 11:41 04/16/25 11:41 Radiology Impressions Abdomen/Pelvis CT 04/16/25 14:22 IMPRESSION: 1. No acute findings. 2. Additional details as above. Unchanged. Chest X-Ray 04/16/25 14:22 IMPRESSION: No acute findings. Laboratory Results WBC 13.22 10^3/uL (3.29-11.43) H 04/16/25 11:41 RBC 6.05 10^6/uL (3.85-5.65) H 04/16/25 11:41 Hgb 18.70 g/dL (11.27-16.99) H 04/16/25 11:41 Hct 54.1 % (36-47) H 04/16/25 11:41 MCV 89.4 fl (85-98) 04/16/25 11:41 MCH 30.9 pg (27-33) 04/16/25 11:41 MCHC 34.6 g/dL (30-55) 04/16/25 11:41 RDW 12.0 % (12.1-15.1) L 04/16/25 11:41 Plt Count 266 10^3/cmm (157-399) 04/16/25 11:41 MPV 8.8 fL (7.4-10.4) 04/16/25 11:41 Neut % (Auto) 63.3 % 04/16/25 11:41 Lymph % (Auto) 27.8 % 04/16/25 11:41 Bland % (Auto) 7.4 % 04/16/25 11:41 Eos % (Auto) 0.2 % 04/16/25 11:41 Baso % (Auto) 0.8 % 04/16/25 11:41 Neut # (Auto) 8.39 10^3/uL (1.8-7.7) H 04/16/25 11:41 Lymph # (Auto) 3.7 10^3/uL (0.8-4.8) 04/16/25 11:41 Bland # (Auto) 1.0 10^3/uL (0.2-0.9) H 04/16/25 11:41 Eos # (Auto) 0.0 10^3/uL (0.0-0.8) 04/16/25 11:41 Baso # (Auto) 0.1 10^3/uL (0.0-0.1) 04/16/25 11:41 Nucleated RBC % (auto) 0 % 04/16/25 11:41 Nucleated RBCs # 0.0 /100WBC 04/16/25 11:41 Sodium 133 mmol/L (136-145) L 04/16/25 11:41 Potassium 3.6 mmol/L (3.5-5.1) 04/16/25 11:41 Chloride 94 mmol/L (98-107) L 04/16/25 11:41 Carbon Dioxide 19 mmol/L (22-29) L 04/16/25 11:41 Anion Gap 23.6 (5-19) H 04/16/25 11:41 BUN 20 mg/dL (6-20) 04/16/25 11:41 Creatinine 0.8 mg/dL (0.5-0.9) 04/16/25 11:41 GFR Calculation 73.9 mL/min (90-130) L 04/16/25 11:41 Glucose 212 mg/dL (65-115) H 04/16/25 11:41 Calculated Osmolality 285 mOsm/kg (285-295) 04/16/25 11:41 Lactic Acid 1.2 mmol/L (0.5-2.2) 04/16/25 14:52 Calcium 9.3 mg/dL (8.5-10.5) 04/16/25 11:41 Total Bilirubin 0.8 mg/dL (0.15-1.2) 04/16/25 11:41 AST 13 U/L (0-32) 04/16/25 11:41 ALT 10 U/L (0-33) 04/16/25 11:41 Alkaline Phosphatase 99 U/L (35-105) 04/16/25 11:41 Total Protein 7.3 g/dL (6.6-8.7) 04/16/25 11:41 Albumin 4.1 g/dL (3.5-5.2) 04/16/25 11:41 Globulin 3.2 g/dL (1.3-4.6) 04/16/25 11:41 Lipase 21 U/L (13-60) 04/16/25 11:41 Urine Color Yellow (Yellow) 04/16/25 13:45 Urine Appearance Clear (CLEAR) 04/16/25 13:45 Urine pH 6.0 (5-7) 04/16/25 13:45 Ur Specific [place] 1.032 (1.005-1.030) H 04/16/25 13:45 Urine Protein 1+ (Negative) A 04/16/25 13:45 Urine Glucose (UA) 3+ (Normal) H 04/16/25 13:45 Urine Ketones 4+ (Negative) 04/16/25 13:45 Urine Blood Trace (Negative) A 04/16/25 13:45 Urine Nitrate Negative (Negative) 04/16/25 13:45 Urine Bilirubin Negative (Negative) 04/16/25 13:45 Urine Urobilinogen 1.0 mg/dL (Negative) 04/16/25 13:45 Ur Leukocyte Esterase Negative (Negative) 04/16/25 13:45 Urine RBC 6-10 /hpf (0-2) 04/16/25 13:45 Urine WBC 0-5 /hpf (0-5) 04/16/25 13:45 Ur Squamous Epith Cells 0-5 /hpf (0-5) 04/16/25 13:45 Amorphous Sediment Not Reportable 04/16/25 13:45 Urine Bacteria 1+ /hpf (NONE) H 04/16/25 13:45 Hyaline Casts 2.46 /lpf 04/16/25 13:45 All radiology interpretation(s) finalized by discharge Discharge Plan Discharge Patient Disposition: Home Clinical Impression: Gastroenteritis Condition: Stable Prescriptions: New promethazine 25 mg tablet 25 mg PO Q6H PRN (Reason: nausea and vomiting) Qty: 20 0RF No Action bupropion HCl 300 mg tablet extended release 24 hr 300 mg PO QAM Qty: 30 1RF methocarbamol 500 mg tablet 500 mg PO TID Qty: 90 2RF Invokana 100 mg tablet 100 mg PO DAILY Qty: 90 1RF Rx Instructions: Please dispense entire 90 quantity lisinopril 5 mg tablet 5 mg PO DAILY Qty: 90 1RF trazodone 300 mg tablet 300 mg PO .q hs Qty: 90 0RF clonazepam [Klonopin] 0.5 mg tablet 0.5 mg PO BID PRN (Reason: anxiety) 5 Days Qty: 10 0RF albuterol sulfate [Ventolin HFA] 90 mcg/actuation HFA aerosol inhaler 2 puff INHALATION Q6H PRN (Reason: Shortness Of Breath) citalopram 40 mg tablet 40 mg PO DAILY fluticasone propionate 50 mcg/actuation spray,suspension 2 spray intranasal BID PRN (Reason: allergies) ezetimibe 10 mg tablet 10 mg PO BEDTIME Januvia 100 mg tablet 100 mg PO DAILY Discharge Orders: Discharge ED (Routine); Ordered 04/16/25 Ordered By: Cristi Costello Referrals: Carine Booth DO [Primary Care Provider, Family Practice] Discharge Diet: Clear Liquid Discharge Activity: Increase activity as tolerated Patient Instructions: Gastroenteritis (ED), Acute Nausea and Vomiting (ED), Opioid Safety, Pain Management Activity Restrictions/Additional Instructions: Thank you for choosing [facility] for your healthcare needs today. It is very important that you follow up as instructed or that you return to the Emergency Department should you have concerns or if your condition changes or worsens in any way. You are seen emergency room with complaints of nausea vomiting abdominal discomfort. Your white count was slightly elevated and there were signs of being mildly dehydrated you are given fluid bolus. Your other labs did not show significant abnormality. CT done did not show any significant pathology. Recommend clear liquid diet for 24 to 48 hours and advance as tolerated. You are given promethazine to use as needed for nausea or vomiting. Print Language: Syriac Coding Level of Care Code ED Director Strategic Account Management for Steven Bernal
[2025-04-16 14:10] VITALS: BP 160/90; PULSE 86; O2SAT 92
[2025-04-16 14:11] LABS: Bilirubin Urine Negative (Negative); Blood Urine Trace (Negative); Glucose Urine UA 3+ (Normal); Ketones Urine 4+ (Negative); Leukocyte Esterase Urine Negative (Negative); Nitrate Urine Negative (Negative); Protein Urine 1+ (Negative); Urine Appearance Clear (CLEAR); Urine Color Yellow (Yellow)
[2025-04-16 14:16] LABS: Add Urine Microscopic? YES; Bacteria Urine 1+ /hpf; Hyaline Casts Urine 2.46 /lpf; Squamous Epithelial Cell Urine 0-5 /hpf (0-5); WBC Urine 0-5 /hpf (0-5)
--- NOTE | 2025-04-16 14:22 | CTR_ITS ---
PROCEDURE INFORMATION: Exam: CT Abdomen And Pelvis With Contrast Exam date and time: 04/16/2025 2:32 PM Age: 55 years old Clinical indication: Nausea and vomiting; Prior surgery; Surgery date: 6+ months; Surgery type: Hyst, tubal, appy; Additional info: Abd pain TECHNIQUE: Imaging protocol: Computed tomography of the abdomen and pelvis with contrast. Radiation optimization: All CT scans at this facility use at least one of these dose optimization techniques: automated exposure control; mA and/or kV adjustment per patient size (includes targeted exams where dose is matched to clinical indication); or iterative reconstruction. Contrast material: OMNI 350; Contrast volume: 100 ml; Contrast route: INTRAVENOUS (IV); COMPARISON: CT abdomen pelvis w con* [id number] 11/21/2021 12:43 PM RADIATION DOSE METRICS: Total DLP (mGy-cm): 442.99 FINDINGS: Lungs: Lung bases are clear as visualized. Liver: Normal. No mass. Gallbladder and biliary ducts: Unchanged cholecystectomy. Unremarkable bile ducts. Pancreas: Normal. No ductal dilation. Spleen: Normal. No splenomegaly. Adrenal glands: Normal. No mass. Kidneys and ureters: Normal. No hydronephrosis. Stomach and bowel: Unremarkable. No obstruction. No mucosal thickening. Appendix: Appendectomy. Intraperitoneal space: Unremarkable. No free air. No significant fluid collection. Vasculature: Unchanged small amount of arterial calcification. Otherwise, unremarkable. Lymph nodes: Unremarkable. No enlarged lymph nodes. Urinary bladder: Unremarkable. Reproductive: Unchanged hysterectomy. Otherwise, unremarkable. Bones/joints: Unchanged mild multilevel spondylosis. Otherwise, unremarkable. Soft tissues: Unremarkable visualized body wall. Otherwise, unremarkable soft tissues. CT/CT abdomen pelvis w con* [id number] IMPRESSION: 1. No acute findings. 2. Additional details as above. Unchanged.
--- NOTE | 2025-04-16 14:22 | XRR_ITS ---
PROCEDURE INFORMATION: Exam: XR Chest Exam date and time: 04/16/2025 2:25 PM Age: 55 years old Clinical indication: Cough and dyspnea; Prior surgery; Surgery date: 6+ months; Surgery type: Gb; Additional info: Dyspnea/cough TECHNIQUE: Imaging protocol: Radiologic exam of the chest. Views: 1 view. COMPARISON: CR (CHEST, ) 11/18/2024 12:19 AM FINDINGS: Lungs: Unremarkable. No consolidation. Pleural spaces: Unremarkable. No pleural effusion. No pneumothorax. Heart/Mediastinum: Unremarkable. No cardiomegaly. Bones/joints: Unremarkable. XR/XR chest 1V portable [id number] IMPRESSION: No acute findings.
[2025-04-16 14:27] LABS: Specific Gravity, Urine 1.032 (1.005-1.030)
[2025-04-16] MEDS: iohexol 350 mg/mL 500 mL Btl (per mL) IV (14:34)
[2025-04-16] MEDS: prochlorperazine 10 mg/2 mL Inj IVP (15:22)
[2025-04-16 15:43] LABS: Lactic Sepsis W/Reflex 1.2 mmol/L (0.5-2.2)
[2025-04-16 16:49] VITALS: BP 160/74; PULSE 98; O2SAT 93
== END 2025-04-16 16:51 | disposition home or self-care (01) ==
PROVIDERS: Emergency Medicine; Emergency Provider Family Medicine; PCP Family Medicine
DX: R11.2 Nausea with vomiting, unspecified (principal); Z88.0 Allergy status to penicillin; Z88.8 Allergy status to other drugs, medicaments and biological substances; Z88.1 Allergy status to other antibiotic agents; F17.210 Nicotine dependence, cigarettes, uncomplicated; K52.9 Noninfective gastroenteritis and colitis, unspecified; E11.9 Type 2 diabetes mellitus without complications
CPT/HCPCS: 36415; 71045; 74177; 80053; 81001; 83605; 83690; 85025; 87040; 96361; 96374; 96375; 99285; J0780; J7030

== ENCOUNTER 2025-11-13 15:22 | Outpatient (CLI) | payer MEDICAID, SELFPAY ==
--- NOTE | 2025-11-13 15:34 | XRR_ITS ---
PROCEDURE INFORMATION: Exam: XR Lumbosacral Spine Exam date and time: 11/13/2025 3:48 PM Age: 55 years old Clinical indication: Low back pain for 3 weeks no known trauma; Additional info: Acute low back pain TECHNIQUE: Imaging protocol: Radiologic exam of the lumbosacral spine. Views: 2 or 3 views. COMPARISON: CR XR lumbar spine 2-3V* [id number] 08/24/2021 3:27 PM FINDINGS: Bones/joints: No acute fracture. Vertebral body heights are maintained. Spinal alignment is preserved. [id number] intervertebral disc space height loss at L2-L3 and L3-L4. Mild bilateral facet arthropathy at L4-L5 and L5-S1. Soft tissues: Unremarkable. Organs: Cholecystectomy clips. Vasculature: Mild atherosclerotic aortic calcifications. XR/XR lumbar spine 2-3V* [id number] IMPRESSION: 1. No acute findings. 2. Mild multilevel lumbar spondylosis.
== END 2025-11-13 15:23 | disposition home or self-care (01) ==
PROVIDERS: PCP Family Medicine; Visit Provider Family Medicine
DX: M47.816 Spondylosis without myelopathy or radiculopathy, lumbar region (principal); M51.360 Other intervertebral disc degeneration, lumbar region with discogenic back pain only; M47.817 Spondylosis without myelopathy or radiculopathy, lumbosacral region; I70.0 Atherosclerosis of aorta; Z90.49 Acquired absence of other specified parts of digestive tract; Z96.89 Presence of other specified functional implants; E11.9 Type 2 diabetes mellitus without complications
CPT/HCPCS: 72100; 80053; 80061; 82043; 83036; 85025